=== PATIENT | female | born 1995 | race Caucasian/White ===

== ENCOUNTER 2019-12-05 01:29 | Emergency (ER) | payer MEDICAID ==
[2019-12-05 01:52] LABS: GLUCOSE, URINE (UA) 250 mg/dL (NEGATIVE)
[2019-12-05 01:54] LABS: CLARITY,URINE CLEAR (CLEAR)
[2019-12-05 01:55] LABS: KETONES,URINE (UA) TRACE mg/dL (NEGATIVE)
[2019-12-05 01:56] LABS: BILIRUBIN,URINE NEGATIVE (NEGATIVE); HCG UR QUAL NEGATIVE
--- NOTE | 2019-12-05 01:58 | ED Physician Documentation ---
History of Present Illness - Stated complaint Stated Complaint: FEM - Chief complaint Chief Complaint: Abd Pain - History obtained from History obtained from: Patient (The patient is a 24-year-old female who presents with a one-month history of worsening dysuria tonight she reports the pain was unbearable after she had been taking Azo for the last week and she is having worsening bladder spasms and now feel like she is getting a kidney infection she denies fevers she denies being denies any pelvic pain or vaginal bleeding. She reports she has a history of seizures and fibromyalgia and endometriosis and diabetes.) Review of Systems Constitutional: reports: Reviewed and negative Eyes: reports: Reviewed and negative Ears: reports: Reviewed and negative Nose: reports: Reviewed and negative Throat: reports: Reviewed and negative Cardiac: reports: Reviewed and negative Respiratory: reports: Reviewed and negative GI: reports: Reviewed and negative : reports: Dysuria Skin: reports: Reviewed and negative Musculoskeletal: reports: Reviewed and negative Neurologic: reports: Reviewed and negative Psychiatric: reports: Reviewed and negative Endocrine: reports: Reviewed and negative Immunocompromised: reports: Reviewed and negative PD PAST MEDICAL HISTORY - Present Medications Home Medications: Ambulatory Orders Medication Instructions Recorded Confirmed Cephalexin [Keflex] 500 mg PO BID #10 capsule 12/05/19 - Allergies Allergies/Adverse Reactions: Allergies Allergy/AdvReac Type Severity Reaction Status Date / Time ciprofloxacin [From Cipro] Allergy Rash Verified 12/05/19 02:01 duloxetine [From Cymbalta] Allergy Unknown Verified 12/05/19 02:02 Penicillins Allergy Anaphylaxis Verified 12/05/19 02:01 PD ED PE NORMAL - Vitals Vital signs reviewed: Yes - General General: Alert and oriented X 3, No acute distress, Well developed/nourished, Other (Tearful upon entering the exam room) - HEENT HEENT: PERRL, Moist mucous membranes - Neck Neck: Supple, no meningeal sign - Cardiac Cardiac: RRR, No murmur - Respiratory Respiratory: No respiratory distress, Clear bilaterally - Abdomen Abdomen: Normal bowel sounds, Soft, Non tender, Non distended, No organomegaly, Other (Suprapubic tenderness palpation) - Back Back: No spinal TTP, Other (Mild bilateral CVA tenderness palpation) - Derm Derm: Warm and dry - Extremities Extremities: No deformity, No tenderness to palpate, Normal ROM s pain, No edema, No calf tenderness / cord - Neuro Neuro: Alert and oriented X 3, code clerk 2-12 intact, No motor deficit, No sensory deficit, Normal speech - Psych Psych: Normal mood, Normal affect Results - Vitals Vitals: Vital Signs - 24 hr 12/05/19 12/05/19 12/05/19 01:30 03:00 03:17 Temperature 36.6 C 37.0 C Heart Rate 88 94 86 Respiratory 20 22 16 Rate Blood Pressure 128/72 133/83 H 119/85 H O2 Saturation 98 95 100 12/05/19 03:50 Temperature 36.8 C Heart Rate 78 Respiratory 18 Rate Blood Pressure 100/64 O2 Saturation 100 Oxygen O2 Source Room air - Labs Labs: Laboratory Tests 12/05/19 12/05/19 12/05/19 01:49 01:58 02:54 WBC 9.9 RBC 4.02 L Hgb 12.0 Hct 35.8 L MCV 89.1 MCH 29.9 MCHC 33.5 RDW 13.2 Plt Count 311 MPV 9.8 Neut # (Auto) 4.6 Lymph # (Auto) 4.1 H [place] # (Auto) 0.8 Eos # (Auto) 0.4 Baso # (Auto) 0.1 Absolute Nucleated RBC 0.00 Nucleated RBC % 0.0 Sodium Potassium Chloride Carbon Dioxide Anion Gap BUN Creatinine Estimated GFR (MDRD) Glucose Calcium Total Bilirubin AST ALT Alkaline Phosphatase Total Protein Albumin Globulin Albumin/Globulin Ratio Lipase Urine Color ORANGE Urine Clarity CLEAR Urine pH 5.0 Ur Specific [place] 1.015 Urine Protein Urine Glucose (UA) 250 H Urine Ketones TRACE Urine Occult Blood Urine Nitrite Urine Bilirubin NEGATIVE Urine Urobilinogen Ur Leukocyte Esterase Urine RBC None Seen Urine WBC 6-10 H Ur Squamous Epith Cells RARE Squamous Urine Bacteria Rare Ur Microscopic Review NOT INDICATED Urine Culture Comments INDICATED Urine HCG, Qual NEGATIVE 12/05/19 02:54 WBC RBC Hgb Hct MCV MCH MCHC RDW Plt Count MPV Neut # (Auto) Lymph # (Auto) [place] # (Auto) Eos # (Auto) Baso # (Auto) Absolute Nucleated RBC Nucleated RBC % Sodium 137 Potassium 3.6 Chloride 105 Carbon Dioxide 22 Anion Gap 10.0 BUN 11 Creatinine 0.6 Estimated GFR (MDRD) 121 Glucose 89 Calcium 8.5 Total Bilirubin 0.5 AST 16 ALT 14 Alkaline Phosphatase 55 Total Protein 6.6 L Albumin 3.8 Globulin 2.8 Albumin/Globulin Ratio 1.4 Lipase 24 Urine Color Urine Clarity Urine pH Ur Specific [place] Urine Protein Urine Glucose (UA) Urine Ketones Urine Occult Blood Urine Nitrite Urine Bilirubin Urine Urobilinogen Ur Leukocyte Esterase Urine RBC Urine WBC Ur Squamous Epith Cells Urine Bacteria Ur Microscopic Review Urine Culture Comments Urine HCG, Qual PD MEDICAL DECISION MAKING - ED course Complexity details: reviewed results, re-evaluated patient, considered differential (Cystitis also on the differential would be pyelonephritis. Patient reports she is allergic to penicillins as well as Levaquin said a lengthy discussion with this patient is about all the benefits, alternatives and risks of being treated with antibiotics the alternative option is to not use any antibiotics as she reports she is allergic to nearly every antibiotic I explained to her the possibility of having an adverse reaction to antibiotics is always possible there is always a small percentage of adverse reactions to taking any antibiotic after this lengthy discussion the patient ultimately decided and agreed to be treated with IV Rocephin.She accepts all adverse effects of taking Rocephin to include anaphylaxis.), d/w patient Departure - Departure Disposition: 01 Home, Self Care Clinical Impression: Cystitis Condition: Stable Instructions: ED UTI Cystitis Female Follow-Up: your, doctor [Other] [facility] [Provider Group] Prescriptions: Cephalexin [Keflex] 500 mg PO BID #10 capsule
[2019-12-05 02:02] LABS: BACTERIA,URINE Rare /HPF (None Seen); RBC,URINE None Seen /HPF (0-5); SQUAMOUS EPITHELIAL CELL,UR RARE Squamous (<= Few)
[2019-12-05 02:02] LABS: ICTOTEST,URINE NEGATIVE
[2019-12-05] MEDS ORDERED: SODIUM CHLORIDE 0.9% 1,000 ML IV ONE (02:31)
[2019-12-05] MEDS ORDERED: MORPHINE 2 MG/ML CARPUJECT IVP STA (02:31)
[2019-12-05] MEDS ORDERED: ONDANSETRON 4 MG/2 ML VIAL IVP STA (02:31)
[2019-12-05] MEDS ORDERED: cefTRIAXone 1 GM in SODIUM CHLORIDE 0.9% MINIBAG 100 ML IV STA (02:33)
[2019-12-05] MEDS ORDERED: diphenhydrAMINE INJ 50 MG/ML VIAL IVP STA (02:48)
[2019-12-05 03:01] LABS: BASOPHILS # (AUTO) 0.1 10^3/uL (0.0-0.1); BASOPHILS % (AUTO) 0.7 %; EOSINOPHILS # (AUTO) 0.4 10^3/uL (0.0-0.7); EOSINOPHILS % (AUTO) 3.5 %; LYMPHOCYTES # (AUTO) 4.1 10^3/uL (1.5-3.5); LYMPHOCYTES % (AUTO) 41.2 %; MEAN CORPUSCULAR HEMOGLOBIN 29.9 pg (27.0-31.0); MEAN CORPUSCULAR HGB CONC 33.5 g/dL (32.0-36.0); MEAN CORPUSCULAR VOLUME 89.1 fL (81.0-99.0); MEAN PLATELET VOLUME 9.8 fL (7.9-10.8); MONOCYTES # (AUTO) 0.8 10^3/uL (0.0-1.0); MONOCYTES % (AUTO) 7.6 %; NEUTROPHILS # (AUTO) 4.6 10^3/uL (1.5-6.6); NEUTROPHILS % (AUTO) 46.7 %; PLT - PLATELET COUNT 311 10^3/uL (130-450); RED BLOOD COUNT 4.02 10^6/uL (4.20-5.40); RED CELL DISTRIBUTION WIDTH 13.2 % (12.0-15.0); WHITE BLOOD COUNT 9.9 x10^3/uL (4.8-10.8)
[2019-12-05 03:17] LABS: ALBUMIN 3.8 g/dL (3.2-5.5); ALBUMIN/GLOBULIN RATIO 1.4 (1.0-2.2); BILIRUBIN,TOTAL 0.5 mg/dL (0.2-1.0); CALCIUM 8.5 mg/dL (8.5-10.3); CREATININE 0.6 mg/dL (0.4-1.0); TOTAL PROTEIN 6.6 g/dL (6.7-8.2)
[2019-12-05 04:15] VITALS: BP 103/55
== END 2019-12-05 04:20 | disposition home or self-care (01) ==
LOC: ED 01:29
DX: N30.90 Cystitis, unspecified without hematuria (principal); E11.9 Type 2 diabetes mellitus without complications; Z88.0 Allergy status to penicillin; Z88.1 Allergy status to other antibiotic agents
CPT/HCPCS: 36415; 80053; 81003; 81025; 83690; 85025; 87086; 96365; 96375; 99284; J1200; 81001

== ENCOUNTER 2021-09-29 02:14 | Outpatient (CLI) | payer MEDICAID | END 2021-09-29 02:15 | disposition short-term general hospital (02) | LOC: EMS 02:14 | DX: S69.91XA Unspecified injury of right wrist, hand and finger(s), initial encounter (principal); R10.31 Right lower quadrant pain; S09.93XA Unspecified injury of face, initial encounter; Y04.2XXA Assault by strike against or bumped into by another person, initial encounter; Y92.414 Local residential or business street as the place of occurrence of the external cause | CPT/HCPCS: A0425; A0429; A0999 ==

== ENCOUNTER 2022-01-31 15:00 | Emergency (ER) | payer MEDICAID ==
[2022-01-31] MEDS ORDERED: HALOPERIDOL 5 MG/ML VIAL IVP STA (15:22)
--- NOTE | 2022-01-31 15:24 | ED Physician Documentation ---
History of Present Illness - Stated complaint Stated Complaint: HEADACHE - Chief complaint Chief Complaint: General - History obtained from History obtained from: Patient - Additonal information Additional information: 26-year-old woman presents for headache. Per the nurse in triage she was alert and oriented and acting normally, however on my examination history is limited because she is either having a panic attack or acutely altered. Per the nurse she was having a headache for a week and also stomach pain, vomiting and diarrhea. She was discoordinated and able to walk but unsteadily. For me she is hyperventilating and will not make eye to eye contact, she will answer questions albeit very slowly. 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: Ovarian cysts : Kidney stones, Other Psych: Depression, Anxiety - Past Surgical History Past Surgical History: Yes /REGULATOR PIN INSERTER: Other - Present Medications Home Medications: Ambulatory Orders Medication Instructions Recorded Confirmed Sertraline HCl 200 mg PO DAILY 01/31/22 01/31/22 traZODone [Desyrel] 25 mg PO HS PRN 01/31/22 01/31/22 - Allergies Allergies/Adverse Reactions: Allergies Allergy/AdvReac Type Severity Reaction Status Date / Time ciprofloxacin [From Cipro] Allergy Rash Verified 01/31/22 15:03 duloxetine [From Cymbalta] Allergy Unknown Verified 01/31/22 15:03 Penicillins Allergy Anaphylaxis Verified 01/31/22 15:03 - Social History Does the pt smoke?: Yes Smoking Status: Current every day smoker Does the pt drink ETOH?: Yes Does the pt have substance abuse?: No - Immunizations Immunizations are current?: Yes - POLST Patient has POLST: No PD ED PE NORMAL - Vitals Vital signs reviewed: Yes - General General: Other (She is alert and oriented to person and place but not the date. She knows it is January though. She has poor eye contact and is hyperventilating.) - HEENT HEENT: PERRL, EOMI - Neck Neck: Supple, no meningeal sign, No bony TTP - Cardiac Cardiac: RRR, No murmur - Respiratory Respiratory: No respiratory distress, Clear bilaterally - Abdomen Abdomen: Non tender - Back Back: No CVA TTP, No spinal TTP - Derm Derm: Normal color, Warm and dry - Extremities Extremities: No edema, No calf tenderness / cord - Neuro Neuro: No motor deficit, No sensory deficit, Other (She is following commands so I am able to state ascertain that she has no nystagmus, normal [id number] testing, normal cranial nerve function save I did not check cranial nerve I. Slow speech.) Eye Opening: Spontaneous Motor: Obeys Commands Results - Vitals Vitals: Vital Signs - 24 hr 01/31/22 01/31/22 01/31/22 15:03 15:39 16:26 Temperature 36.6 C Heart Rate 90 77 68 Respiratory 18 36 H 25 H Rate Blood Pressure 150/100 H 125/65 126/75 O2 Saturation 100 98 98 Oxygen O2 Source Room air - Labs Labs: Laboratory Tests 01/31/22 01/31/22 01/31/22 15:31 15:31 15:31 WBC 10.5 RBC 4.26 Hgb 12.9 Hct 37.5 MCV 88.0 MCH 30.3 MCHC 34.4 RDW 12.4 Plt Count 301 MPV 9.3 Neut # (Auto) 6.7 H Lymph # (Auto) 2.6 [place] # (Auto) 0.9 Eos # (Auto) 0.3 Baso # (Auto) 0.1 Absolute Nucleated RBC 0.00 Nucleated RBC % 0.0 PT 11.6 INR 1.0 VBG pH VBG pCO2 VBG pO2 VBG HCO3 VBG Total CO2 VBG O2 Saturation VBG Base Excess Sodium 137 Potassium 4.4 Chloride 101 Carbon Dioxide 26 Anion Gap 10.0 BUN 14 Creatinine 0.8 Estimated GFR (MDRD) 85 L Glucose 94 Calcium 9.2 Magnesium 2.0 Total Bilirubin 0.5 AST 19 ALT 15 Alkaline Phosphatase 63 Total Protein 7.5 Albumin 4.0 Globulin 3.5 Albumin/Globulin Ratio 1.1 TSH Salicylates < 6.0 Acetaminophen < 10 L Ethyl Alcohol < 5.0 01/31/22 01/31/22 15:31 15:31 WBC RBC Hgb Hct MCV MCH MCHC RDW Plt Count MPV Neut # (Auto) Lymph # (Auto) [place] # (Auto) Eos # (Auto) Baso # (Auto) Absolute Nucleated RBC Nucleated RBC % PT INR VBG pH 7.416 H VBG pCO2 40.3 L VBG pO2 27.4 VBG HCO3 25.3 VBG Total CO2 26.6 VBG O2 Saturation 55.7 L VBG Base Excess 0.8 Sodium Potassium Chloride Carbon Dioxide Anion Gap BUN Creatinine Estimated GFR (MDRD) Glucose Calcium Magnesium Total Bilirubin AST ALT Alkaline Phosphatase Total Protein Albumin Globulin Albumin/Globulin Ratio TSH 0.64 Salicylates Acetaminophen Ethyl Alcohol PD MEDICAL DECISION MAKING - ED course ED course: 26-year-old woman presents with complaints of headache, stomach pain, vomiting and diarrhea and although reportedly gave a good history to the nurse on my examination she is altered most consistent with a panic attack. Work-up was done with basically normal blood work, and a head CT that was negative. She was administered some Haldol for combination of presumed migraine and panic attack and on reexamination at approximately 4:35 PM she was much better and much more coherent. I was able to obtain a more thorough history. Starting about a week ago she developed a very dry nose. She had multiple nosebleeds. She was congested and then more recently developed vomiting and diarrhea but subsequently took Imodium and then she was constipated so could not take anymore Imodium. She has taken home COVID test and they were negative. She was feeling much better at that point and a urinalysis had not been obtained. She did not want to wait to provide a urinalysis and promises no chance of as she is homosexual. Departure - Departure Disposition: 01 Home, Self Care Clinical Impression: Abdominal pain, Nausea Headache Qualifiers: Headache type: unspecified Headache chronicity pattern: acute headache Intractability: not intractable Qualified Code(s): R51.9 - Headache, unspecified Condition: Good Record reviewed to determine appropriate education?: Yes Instructions: ED Cephalgia Unspecified Comments: We did extensive blood testing and a CT of the head today that were negative. Please return for new or worsening symptoms. Follow-up with your primary care physician, next available appointment. Forms: Activity restrictions
[2022-01-31 15:42] LABS: VBG BASE EXCESS 0.8 mmol/L (-2 - +2); VBG HCO3 25.3 mmol/L (23-28); VBG OXYGEN SATURATION 55.7 % (60-80); VBG PCO2 40.3 mmHg (41-51); VBG PH 7.416 (7.31-7.41); VBG PO2 27.4 mmHg (25-47); VBG TOTAL CO2 26.6 mmol/L (24-29)
[2022-01-31 15:43] LABS: BASOPHILS # (AUTO) 0.1 10^3/uL (0.0-0.1); BASOPHILS % (AUTO) 0.9 %; EOSINOPHILS # (AUTO) 0.3 10^3/uL (0.0-0.7); EOSINOPHILS % (AUTO) 2.5 %; HCT - HEMATOCRIT 37.5 % (37.0-47.0); HGB - HEMOGLOBIN 12.9 g/dL (12.0-16.0); LYMPHOCYTES # (AUTO) 2.6 10^3/uL (1.5-3.5); LYMPHOCYTES % (AUTO) 24.7 %; MEAN CORPUSCULAR HEMOGLOBIN 30.3 pg (27.0-31.0); MEAN CORPUSCULAR HGB CONC 34.4 g/dL (32.0-36.0); MEAN PLATELET VOLUME 9.3 fL (7.9-10.8); MONOCYTES # (AUTO) 0.9 10^3/uL (0.0-1.0); MONOCYTES % (AUTO) 8.3 %; NEUTROPHILS # (AUTO) 6.7 10^3/uL (1.5-6.6); NEUTROPHILS % (AUTO) 63.4 %; PLT - PLATELET COUNT 301 10^3/uL (130-450); RED BLOOD COUNT 4.26 10^6/uL (4.20-5.40); RED CELL DISTRIBUTION WIDTH 12.4 % (12.0-15.0); WHITE BLOOD COUNT 10.5 x10^3/uL (4.8-10.8)
[2022-01-31 15:49] LABS: PT - PROTHROMBIN TIME 11.6 secs (9.9-12.6)
[2022-01-31 16:19] LABS: ACETAMINOPHEN < 10 ug/mL (10-30); ALBUMIN/GLOBULIN RATIO 1.1 (1.0-2.2); ALKALINE PHOSPHATASE 63 IU/L (42-121); ALT ALANINE AMINOTRANSFERASE 15 IU/L (10-60); AST ASPARTATE AMINOTRANSFERASE 19 IU/L (10-42); BILIRUBIN,TOTAL 0.5 mg/dL (0.2-1.0); BUN - BLOOD UREA NITROGEN 14 mg/dL (6-20); CALCIUM 9.2 mg/dL (8.5-10.3); CARBON DIOXIDE - CO2 26 mmol/L (21-32); CHLORIDE 101 mmol/L (101-111); CREATININE 0.8 mg/dL (0.4-1.0); ETOH - ETHANOL < 5.0 mg/dL; GFR - MDRD 85 (>89); GLUCOSE 94 mg/dL (70-100); POTASSIUM 4.4 mmol/L (3.5-5.0); SALICYLATE < 6.0 mg/dL; SODIUM 137 mmol/L (135-145); TOTAL PROTEIN 7.5 g/dL (6.7-8.2)
--- NOTE | 2022-01-31 16:32 | CT Report ---
PROCEDURE: HEAD WO INDICATIONS: headache TECHNIQUE: Noncontrast 4.5 mm thick angled axial sections acquired from the foramen magnum to the vertex. For r adiation dose reduction, the following was used: automated exposure control, adjustment of mA and/or kV according to patient size. COMPARISON: None. FINDINGS: Image quality: Excellent. CSF spaces: Basal cisterns are patent. No extra-axial fluid collections. Ventricles are normal in size and shape. Brain: No midline shift. No intracranial masses or hemorrhage. Dior-white matter interface is norm al. Skull and face: Calvarium and visualized facial bones are intact, without suspicious lesions. Sinuses: Visualized sinuses and mastoids are clear. IMPRESSION: No acute intracranial disease process. Reviewed by: Lucero Fuentes MD, PhD on 01/31/2022 4:30 PM PDT Approved by: Lucero Fuentes MD, PhD on 01/31/2022 4:30 PM PDT Station ID: [id number]
[2022-01-31 17:07] VITALS: BP 128/76
== END 2022-01-31 17:09 | disposition home or self-care (01) ==
LOC: ED 15:00
DX: R10.9 Unspecified abdominal pain (principal); R11.0 Nausea; R51.9 Headache, unspecified; F17.200 Nicotine dependence, unspecified, uncomplicated
CPT/HCPCS: 36415; 80053; 80307; 80320; 80329; 82803; 83735; 84443; 85025; 85610; 96374; 99283

== ENCOUNTER 2022-05-21 15:53 | Outpatient (CLI) | payer OTHER, MEDICAID | END 2022-05-21 15:54 | disposition critical access hospital (66) | LOC: EMS 15:53 | DX: T63.461A Toxic effect of venom of wasps, accidental (unintentional), initial encounter (principal); R06.00 Dyspnea, unspecified; R07.89 Other chest pain; L50.9 Urticaria, unspecified; R49.0 Dysphonia; Y99.0 Civilian activity done for income or pay | CPT/HCPCS: A0425; A0427 ==

== ENCOUNTER 2022-05-21 16:25 | Emergency (ER) | payer OTHER, MEDICAID ==
--- OUTSIDE RECORDS SUMMARY | 2022-05-21 16:32 | EXTERNAL MEDICAL SUMMARY RPT | Continuity of Care Document ---
:1995 Author Organization [facility] Address [address] [place] [address] Phone Care Team Providers Name Role Phone Unavailable Unavailable Unavailable Ld Coto,Manager Retirement, Stevan Unavailable Unavailable Kourtney Plant Breeder Enp, Anel Unavailable Unavailable Allergies No information. Encounters No information. Functional Status No information. Immunizations No information. Medications date description facility [id number]+0000 diclofenac sodium All 48605279907285+0000 diclofenac sodium All 70681099115228+0000 cholecalciferol (vitamin d3) All 40072392237730+0000 cholecalciferol (vitamin d3) All 64524846545392+0000 cholecalciferol (vitamin d3) All 11174635632424+0000 cholecalciferol (vitamin d3) All 10067642361060+0000 cholecalciferol (vitamin d3) All 60471937491217+0000 cholecalciferol (vitamin d3) All 18597308609074+0000 venlafaxine All 93074486069675+0000 venlafaxine All 03155807712142+0000 venlafaxine All 48644956927740+0000 venlafaxine All 63894365501597+0000 venlafaxine All 31079679266410+0000 venlafaxine All 09986384220734+0000 diclofenac sodium All 77876138315128+0000 diclofenac sodium All 36763194629121+0000 albuterol sulfate All 47461698089205+0000 albuterol sulfate All 95925949331618+0000 albuterol sulfate All 40244732763187+0000 fluticasone propionate All 27701370285676+0000 fluticasone propionate All 24387977672877+0000 fluticasone propionate All 83650426239687+0000 albuterol sulfate All 12102445052205+0000 albuterol sulfate All 79609366645614+0000 albuterol sulfate All 91358119603883+0000 venlafaxine All 88668385381370+0000 venlafaxine All 87672384544771+0000 venlafaxine All 17776721489523+0000 diclofenac sodium All 73952863639200+0000 diclofenac sodium All 50399513477106+0000 albuterol sulfate All 75559242751388+0000 albuterol sulfate All 16202159916430+0000 albuterol sulfate All 61993235228156+0000 fluticasone propionate All 64790839532260+0000 fluticasone propionate All 12496220108472+0000 fluticasone propionate All 12465879364961+0000 cholecalciferol (vitamin d3) All 63978023885366+0000 cholecalciferol (vitamin d3) All 52516176249659+0000 cholecalciferol (vitamin d3) All 04075847546347+0000 venlafaxine All 34703844090326+0000 venlafaxine All 28715725038220+0000 venlafaxine All 15250196782313+0000 albuterol sulfate All 83249535908246+0000 albuterol sulfate All 14478229009759+0000 albuterol sulfate All 69239399431405+0000 cholecalciferol (vitamin d3) All 73824749344283+0000 cholecalciferol (vitamin d3) All 75237055747525+0000 cholecalciferol (vitamin d3) All 58646388924543+0000 diclofenac sodium All 94095366395759+0000 diclofenac sodium All 80305239379194+0000 fluticasone propionate All 55886427775700+0000 fluticasone propionate All 23490860821587+0000 fluticasone propionate All 93902696999487+0000 fluticasone propionate All 46689601682621+0000 fluticasone propionate All 25890134813537+0000 fluticasone propionate All Problems No information. Procedures date description facility [id number]+0000 Visit Code Hold All 15163919112968+0000 Visit Code Hold All 33475990266148+0000 XR FOOT 2 VIEWS All Results/Labs No information. Social History date description facility [id number]+0000 Unknown if ever smoked All 03995127051530+0000 Unknown if ever smoked All 66098347807470+0000 Unknown if ever smoked All Vital Signs date measurement value units 02353481646349+0000 BMI BMI 36.35 kg/m2 11362921174582+0000 BP_diastolic BP_diastolic 71 mmHg 26840388512988+0000 BP_systolic BP_systolic 133 mmHg +0000 heart_rate heart_rate 74 /min +0000 height_metric height_metric 172.72 cm +0000 height_standard height_standard 68 in +0000 respiration_rate respiration_rate 16 /min +0000 temperature_metric temperature_metric 37.17 C +0000 temperature_standard temperature_standard 9 8.9 F +0000 weight_metric weight_metric 108.05 kg +0000 weight_standard weight_standard 238.2 lb
--- NOTE | 2022-05-21 16:35 | ED Physician Documentation ---
History of Present Illness - Stated complaint Stated Complaint: ALLERGIC REACTION - History obtained from History obtained from: Patient - Additonal information Additional information: 26-year-old woman with no history of bee or wasp anaphylaxis Works for a [employer]. She was on duty today getting rid of a wasp ground nest and was stung. She developed a body wide rash and throat swelling. Some chest heaviness and nausea. She was seen in the urgent care and given IM epinephrine and Benadryl. Subsequently was given Solu-Medrol in route by EMS and feeling better now. 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: Ovarian cysts : Kidney stones, Other Psych: Depression, Anxiety - Past Surgical History Past Surgical History: Yes /NATIONAL COVERAGE SPECIALIST: Other - Present Medications Home Medications: Ambulatory Orders Medication Instructions Recorded Confirmed Sertraline HCl 200 mg PO DAILY 01/31/22 01/31/22 traZODone [Desyrel] 25 mg PO HS PRN 01/31/22 01/31/22 Cyclobenzaprine [Flexeril] 10 mg PO TID PRN #12 tablet 03/11/22 Ibuprofen [Motrin] 600 mg PO Q6H PRN #30 tab 03/11/22 Lidocaine Patch 5% [Lidoderm Patch] 1 patch TOP DAILY PRN #10 patch 03/11/22 EPINEPHrine [Epinephrine] 0.3 mg IJ ONCE PRN #2 each 05/21/22 - Allergies Allergies/Adverse Reactions: Allergies Allergy/AdvReac Type Severity Reaction Status Date / Time ciprofloxacin [From Cipro] Allergy Rash Verified 05/21/22 16:40 duloxetine [From Cymbalta] Allergy Unknown Verified 05/21/22 16:40 Iodinated Contrast Media Allergy Respiratory Verified 05/21/22 16:40 Penicillins Allergy Anaphylaxis Verified 05/21/22 16:40 - Social History Does the pt smoke?: Yes Smoking Status: Current every day smoker Does the pt drink ETOH?: Yes Does the pt have substance abuse?: No - Immunizations Immunizations are current?: Yes - POLST Patient has POLST: No PD ED PE NORMAL - Vitals Vital signs reviewed: Yes - General General: Alert and oriented X 3, No acute distress - HEENT HEENT: Pharynx benign - Respiratory Respiratory: No respiratory distress, Clear bilaterally - Abdomen Abdomen: Non tender - Derm Derm: No rash - Neuro Neuro: Alert and oriented X 3, Normal speech Results - Vitals Vitals: Vital Signs - 24 hr 05/21/22 05/21/22 05/21/22 16:30 16:51 17:04 Temperature 36.8 C Heart Rate 84 106 H 91 Respiratory 18 17 25 H Rate Blood Pressure 153/86 H 135/78 H O2 Saturation 98 99 100 05/21/22 05/21/22 17:30 18:55 Temperature Heart Rate 74 82 Respiratory 20 20 Rate Blood Pressure 124/69 117/73 O2 Saturation 100 100 Oxygen O2 Source Room air PD MEDICAL DECISION MAKING - ED course ED course: 26-year-old woman with resolved anaphylaxis symptoms after wasp stings. She was observed for 3 hours without recurrence of symptoms. Counseled on the use of EpiPen and hymenoptera avoidance. L&I form [id number] completed and filed. The patient Was counseled as to the diagnosis and need for follow-up. I counseled the patient with regard to signs and symptoms that would necessitate an urgent reevaluation in the emergency department. They understand they are welcome to return at any time if worse or if not improving as expected. This document was made in part using voice recognition software. While efforts are made to proofread this documents, sound alike and grammatical errors may occur. Departure - Departure Disposition: 01 Home, Self Care Clinical Impression: Anaphylaxis Qualifiers: Encounter type: initial encounter Qualified Code(s): T78.2XXA - Anaphylactic shock, unspecified, initial encounter Condition: Good Record reviewed to determine appropriate education?: Yes Instructions: EpiPen Auto Injector Dc, ED Anaphylaxis General Prescriptions: EPINEPHrine [Epinephrine] 0.3 mg IJ ONCE PRN #2 each PRN Reason: Allergy Symptoms Comments: Call your doctor to arrange a follow-up appointment, make the next available appointment. In the interim, return anytime if worse or if new symptoms develop.
[2022-05-21 19:00] VITALS: BP 117/73
== END 2022-05-21 19:06 | disposition home or self-care (01) ==
LOC: EDUNIT# → ED 16:25
DX: T63.444A Toxic effect of venom of bees, undetermined, initial encounter (principal); E11.9 Type 2 diabetes mellitus without complications; F17.200 Nicotine dependence, unspecified, uncomplicated
CPT/HCPCS: 99282; 99284

== ENCOUNTER 2022-05-22 16:49 | Outpatient (CLI) | payer OTHER, MEDICAID | END 2022-05-22 16:50 | disposition critical access hospital (66) | LOC: EMS 16:49 | DX: T63.461A Toxic effect of venom of wasps, accidental (unintentional), initial encounter (principal); R06.02 Shortness of breath; R07.9 Chest pain, unspecified; R07.0 Pain in throat; R13.10 Dysphagia, unspecified; R11.0 Nausea; L50.9 Urticaria, unspecified; R06.2 Wheezing; Y99.0 Civilian activity done for income or pay | CPT/HCPCS: A0425; A0427 ==

== ENCOUNTER 2022-05-22 17:18 | Emergency (ER) | payer OTHER, MEDICAID ==
--- OUTSIDE RECORDS SUMMARY | 2022-05-22 17:24 | EXTERNAL MEDICAL SUMMARY RPT | Continuity of Care Document ---
:1995 Author Organization [facility] Address [address] [place] [address] Phone Care Team Providers Name Role Phone Unavailable Unavailable Unavailable Isabelle Gibson, Stevan Unavailable Unavailable Kourtney Coto Enp, Anel Unavailable Unavailable Aurea Turner, Stephen Unavailable Unavailable Allergies No information. Encounters No information. Functional Status No information. Immunizations No information. Medications date description facility [id number]+0000 diclofenac sodium All [id number]+0000 diclofenac sodium All [id number]+0000 diclofenac sodium [facility] ana luisa [phone]+0000 DIPHENHYDRAMINE HCL [facility] ana luisa [id number]+0000 cholecalciferol (vitamin d3) All 89801973414912+0000 cholecalciferol (vitamin d3) All 20755578162461+0000 cholecalciferol (vitamin d3) All 21118687930858+0000 cholecalciferol (vitamin d3) [facility] ana luisa [id number]+0000 cholecalciferol (vitamin d3) All 14089533584101+0000 cholecalciferol (vitamin d3) All 10389140187981+0000 cholecalciferol (vitamin d3) All 98714961984187+0000 cholecalciferol (vitamin d3) [facility] ana luisa [id number]+0000 venlafaxine All [id number]+0000 venlafaxine All [id number]+0000 venlafaxine All [id number]+0000 venlafaxine [facility] ana luisa [phone]+0000 venlafaxine All [id number]+0000 venlafaxine All [id number]+0000 venlafaxine All [id number]+0000 venlafaxine [facility] Silas orosco [id number]+0000 diclofenac sodium All [id number]+0000 diclofenac sodium All [id number]+0000 diclofenac sodium [facility] Silas orosco [id number]+0000 albuterol sulfate All [id number]+0000 albuterol sulfate All [id number]+0000 albuterol sulfate All [id number]+0000 albuterol sulfate [facility] [place] orosco [id number]+0000 fluticasone propionate All [id number]+0000 fluticasone propionate All 53297006636902+0000 fluticasone propionate All [id number]+0000 fluticasone propionate [facility] [place] o[place]o [id number]+0000 albuterol sulfate All 46249081072586+0000 albuterol sulfate All 10976258975294+0000 albuterol sulfate All 55120102212832+0000 albuterol sulfate [facility] [place] orosco [id number]+0000 venlafaxine All [id number]+0000 venlafaxine All [id number]+0000 venlafaxine All [id number]+0000 venlafaxine [facility] [place] orosco [id number]+0000 diclofenac sodium All 18906499957976+0000 diclofenac sodium All [id number]+0000 diclofenac sodium [facility] Sil[place] orosco [id number]+0000 albuterol sulfate All [id number]+0000 albuterol sulfate All 82886891985765+0000 albuterol sulfate All [id number]+0000 albuterol sulfate [facility] [place] orosc[place] [id number]+0000 fluticasone propionate All [id number]+0000 fluticasone propionate All 32062736097304+0000 fluticasone propionate All 33904053667013+0000 fluticasone propionate [facility] [place] orosco [id number]+0000 cholecalciferol (vitamin d3) All 72662240596555+0000 cholecalciferol (vitamin d3) All 85550546739666+0000 cholecalciferol (vitamin d3) All 49343978027412+0000 cholecalciferol (vitamin d3) [facility] [place] [id number]+0000 venlafaxine All [id number]+0000 venlafaxine All [id number]+0000 venlafaxine All [id number]+0000 venlafaxine [facility] [place] orosc[place] [id number]+0000 EPINEPHRINE [facility] [place] orosco [id number]+0000 albuterol sulfate All [id number]+0000 albuterol sulfate All [id number]+0000 albuterol sulfate All 14016061366167+0000 albuterol sulfate [facility] Silas orosco [id number]+0000 cholecalciferol (vitamin d3) All 60929039442846+0000 cholecalciferol (vitamin d3) All 15122777440664+0000 cholecalciferol (vitamin d3) All 64108718162047+0000 cholecalciferol (vitamin d3) [facility] [place] orosco [id number]+0000 diclofenac sodium All 88604214645367+0000 diclofenac sodium All 69941786001711+0000 diclofenac sodium [facility] Silas orosco [id number]+0000 fluticasone propionate All [id number]+0000 fluticasone propionate All [id number]+0000 fluticasone propionate All 43652322299996+0000 fluticasone propionate [facility] [place] orosco [id number]+0000 fluticasone propionate All 13589322593158+0000 fluticasone propionate All 51039851509327+0000 fluticasone propionate All [id number]+0000 fluticasone propionate [facility] [place] orosco Problems No information. Procedures date description facility [id number]+0000 Visit Code Hold All [id number]+0000 Visit Code Hold All [id number]+0000 Visit Code Hold [facility] Larry [phone]+0000 Visit Code Hold [facility] Larry [id number]+0000 XR FOOT 2 VIEWS All [id number]+0000 XR FOOT 2 VIEWS [facility] [place] Results/Labs No information. Social History date description facility +0000 Unknown if ever smoked All [id number]+0000 Unknown if ever smoked All [id number]+0000 Unknown if ever smoked All [id number]+0000 Unknown if ever smoked [facility] Vital Signs date measurement value units [id number]+0000 BMI BMI 36.35 kg/m2 49797779697632+0000 BP_diastolic BP_diastolic 71 mmHg 59142536023386+0000 BP_systolic BP_systolic 133 mmHg 92020553867146+0000 heart_rate heart_rate 74 /min 06821310646526+0000 height_metric height_metric 172.72 cm 10938450297921+0000 height_standard height_standard 68 in 63967024778844+0000 respiration_rate respiration_rate 16 /min 95763489017311+0000 temperature_metric temperature_metric 37.17 C 31037416927460+0000 temperature_standard temperature_standard 9 8.9 F 03613343119214+0000 weight_metric weight_metric 108.05 kg 62931298542632+0000 weight_standard weight_standard 238.2 lb 97868068817007+0000 temperature_metric temperature_metric 37.17 C 46660637573415+0000 temperature_standard temperature_standard 9 8.9 F 72379966859975+0000 BMI BMI 36.32 kg/m2 27337507622395+0000 BP_diastolic BP_diastolic 91 mmHg 21895466010506+0000 BP_systolic BP_systolic 148 mmHg 05299357395357+0000 heart_rate heart_rate 80 /min 38637613986376+0000 height_metric height_metric 172.72 cm 65565816714780+0000 height_standard height_standard 68 in 04614068087350+0000 respiration_rate respiration_rate 22 /min 39528786402252+0000 weight_metric weight_metric 107.95 kg 19917598019898+0000 weight_standard weight_standard 238 lb
[2022-05-22] MEDS ORDERED: DEXAMETHASONE 10 MG/ML VIAL IVP STA (17:28)
[2022-05-22] MEDS ORDERED: ALBUTEROL NEB 2.5 MG/3 ML INH STA (17:32)
[2022-05-22] MEDS ORDERED: SODIUM CHLORIDE INHALATION 3 ML NEB INH STA (17:32)
[2022-05-22] MEDS ORDERED: RACEPINEPHRINE 2.25% NEB INH STA (17:32)
[2022-05-22] MEDS ORDERED: LORazepam 2 MG/ML VIAL IVP STA ×2 (17:33→20:13)
[2022-05-22] MEDS ORDERED: SODIUM CHLORIDE 0.9% 1,000 ML IV STA (17:33)
--- NOTE | 2022-05-22 17:53 | ED Physician Documentation ---
History of Present Illness - Stated complaint Stated Complaint: ALLERGIC REACTION - Chief complaint Chief Complaint: Allergic Rx - History obtained from History obtained from: Patient, EMS - History of Present Illness Timing: Yesterday Pain level max: 0 Pain level now: 0 - Additonal information Additional information: 26-year-old female presents to the emergency department with what appears to be anaphylaxis. She was stung by a wasp yesterday. Seen and treated. Symptoms returned today. She was given IM epinephrine with EMS as well as Solu-Medrol and Benadryl. She was given 0.3 mg of IM epinephrine x2. She was given 125 mg of Solu-Medrol and 50 mg of IM Benadryl x2. Patient complains of a continued f eeling of tightness in her throat. She states she feels like her chest is tight as well. Has never had allergic reactions before yesterday to any insect sting or bite. Denies any possibility of . 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 - Present Medications Home Medications: Ambulatory Orders Medication Instructions Recorded Confirmed Sertraline HCl 200 mg PO DAILY 01/31/22 01/31/22 traZODone [Desyrel] 25 mg PO HS PRN 01/31/22 01/31/22 Cyclobenzaprine [Flexeril] 10 mg PO TID PRN #12 tablet 03/11/22 Ibuprofen [Motrin] 600 mg PO Q6H PRN #30 tab 03/11/22 Lidocaine Patch 5% [Lidoderm Patch] 1 patch TOP DAILY PRN #10 patch 03/11/22 EPINEPHrine [Epinephrine] 0.3 mg IJ ONCE PRN #2 each 05/21/22 - Allergies Allergies/Adverse Reactions: Allergies Allergy/AdvReac Type Severity Reaction Status Date / Time ciprofloxacin [From Cipro] Allergy Rash Verified 05/22/22 17:30 duloxetine [From Cymbalta] Allergy Unknown Verified 05/22/22 17:30 Iodinated Contrast Media Allergy Respiratory Verified 05/22/22 17:30 Penicillins Allergy Anaphylaxis Verified 05/22/22 17:30 - Social History Does the pt smoke?: Yes Smoking Status: Current every day smoker Does the pt drink ETOH?: Yes Does the pt have substance abuse?: No - Immunizations Immunizations are current?: Yes - POLST Patient has POLST: No PD ED PE NORMAL - Vitals Vital signs reviewed: Yes - General General: Alert and oriented X 3, Well developed/nourished, Other (Anxious appea ring) - HEENT HEENT: PERRL, Ears normal, Moist mucous membranes, Pharynx benign, Other (Normal oropharyngeal exam. Normal phonation. No trismus, wheezing or stridor) - Neck Neck: Supple, no meningeal sign - Cardiac Cardiac: RRR, Strong equal pulses - Respiratory Respiratory: Clear bilaterally, Other (Tachypneic) - Abdomen Abdomen: Soft, Non tender, Non distended - Back Back: No spinal TTP - Derm Derm: Warm and dry, Other (Mild rash to the anterior chest.) - Neuro Neuro: Alert and oriented X 3 - Psych Psych: Normal mood, Normal affect Results - Vitals Vitals: Vital Signs - 24 hr 05/22/22 05/22/22 05/22/22 17:35 17:47 17:53 Temperature 37.6 C Heart Rate 122 H 116 H 46 L Respiratory 30 H 40 H 23 Rate Blood Pressure 157/80 H 154/75 H O2 Saturation 100 100 05/22/22 05/22/22 05/22/22 18:12 19:09 19:36 Temperature Heart Rate 106 H 104 H 102 H Respiratory 22 26 H 26 H Rate Blood Pressure 133/77 H 121/70 O2 Saturation 100 100 100 05/22/22 20:35 Temperature Heart Rate 95 Respiratory 30 H Rate Blood Pressure 133/79 H O2 Saturation 98 Oxygen O2 Source Room air - Labs Labs: Laboratory Tests 05/22/22 05/22/22 05/22/22 18:19 18:19 18:19 WBC 18.0 H RBC 4.63 Hgb 13.9 Hct 40.8 MCV 88.1 MCH 30.0 MCHC 34.1 RDW 12.9 Plt Count 373 MPV 9.4 Neut # (Auto) 14.0 H Lymph # (Auto) 3.2 [place] # (Auto) 0.6 Eos # (Auto) 0.1 Baso # (Auto) 0.0 Absolute Nucleated RBC 0.00 Nucleated RBC % 0.0 Sodium 136 Potassium 2.3 L* Chloride 99 L Carbon Dioxide 24 Anion Gap 13.0 BUN 12 Creatinine 1.1 H Estimated GFR (MDRD) 59 L Glucose 157 H Calcium 9.2 Phosphorus 3.4 Magnesium 1.8 05/22/22 21:22 WBC RBC Hgb Hct MCV MCH MCHC RDW Plt Count MPV Neut # (Auto) Lymph # (Auto) [place] # (Auto) Eos # (Auto) Baso # (Auto) Absolute Nucleated RBC Nucleated RBC % Sodium 138 Potassium 3.8 Chloride 104 Carbon Dioxide 24 Anion Gap 10.0 BUN 11 Creatinine 0.9 Estimated GFR (MDRD) 75 L Glucose 145 H Calcium 8.8 Phosphorus Magnesium PD MEDICAL DECISION MAKING - ED course Complexity details: reviewed results, re-evaluated patient, considered differential, d/w patient ED course: Patient brought in by EMS for what they believed to be was anaphylaxis. The patient was given racemic epinephrine and albuterol here as well as dexamethasone. She appeared to be highly anxious, therefore Ativan was used and the patient feels better. Potassium came back at 2.3, potassium was replaced and the patient's breathing rate decreased with Ativan. On recheck it was 3.8. She states overall she is feeling better but still feels anxious and jittery. Likely from the large amount of epinephrine and potentially from the diphenhydramine given by EMS. We will continue to observe the patient until her symptoms have improved and to ensure there is no further evidence of anaphylaxis. Patient will be signed out to the [facility] emergency department physician. This document was made in part using voice recognition software. While efforts are made to proofread this document, sound alike and grammatical errors may occur. Departure - Departure Clinical Impression: Anxiety, Hypokalemia Anaphylaxis Qualifiers: Encounter type: initial encounter Qualified Code(s): T78.2XXA - Anaphylactic shock, unspecified, initial encounter Condition: Stable
[2022-05-22 18:24] LABS: BASOPHILS % (AUTO) 0.2 %; EOSINOPHILS # (AUTO) 0.1 10^3/uL (0.0-0.7); EOSINOPHILS % (AUTO) 0.3 %; HCT - HEMATOCRIT 40.8 % (37.0-47.0); HGB - HEMOGLOBIN 13.9 g/dL (12.0-16.0); LYMPHOCYTES # (AUTO) 3.2 10^3/uL (1.5-3.5); LYMPHOCYTES % (AUTO) 17.9 %; MEAN CORPUSCULAR HGB CONC 34.1 g/dL (32.0-36.0); MEAN CORPUSCULAR VOLUME 88.1 fL (81.0-99.0); MEAN PLATELET VOLUME 9.4 fL (7.9-10.8); MONOCYTES # (AUTO) 0.6 10^3/uL (0.0-1.0); MONOCYTES % (AUTO) 3.3 %; NEUTROPHILS % (AUTO) 77.8 %; PLT - PLATELET COUNT 373 10^3/uL (130-450); RED BLOOD COUNT 4.63 10^6/uL (4.20-5.40); RED CELL DISTRIBUTION WIDTH 12.9 % (12.0-15.0)
[2022-05-22 18:34] LABS: CALCIUM 9.2 mg/dL (8.5-10.3); CREATININE 1.1 mg/dL (0.4-1.0)
[2022-05-22 18:38] LABS: POTASSIUM 2.3 mmol/L (3.5-5.0)
[2022-05-22] MEDS ORDERED: POTASSIUM CHLOR 10 MEQ/100 ML 10 MEQ/100 ML BAG IV STA (18:39)
[2022-05-22] MEDS ORDERED: POTASSIUM CHLORIDE 20 MEQ TABLET PO STA (18:39)
[2022-05-22 18:53] LABS: MAGNESIUM 1.8 mg/dL (1.7-2.8); PHOSPHORUS 3.4 mg/dL (2.5-4.6)
--- NOTE | 2022-05-22 19:53 | XRAY Report ---
PROCEDURE: Chest 1 View X-Ray INDICATIONS: dyspnea TECHNIQUE: One view of the chest was acquired. COMPARISON: None. FINDINGS: Surgical changes and devices: None. Lungs and pleura: No pleural effusions or pneumothorax. Lungs are clear. Mediastinum: Mediastinal contours appear normal. Heart size is normal. Bones and chest wall: No suspicious bony lesions. Overlying soft tissues appear unremarkable. IMPRESSION: No acute cardiopulmonary abnormality. Reviewed by: Real Bush MD on 05/22/2022 7:52 PM PDT Approved by: Real Bush MD on 05/22/2022 7:52 PM PDT Station ID: [id number]
[2022-05-22] MEDS ORDERED: KETOROLAC 30 MG/ML VIAL IVP STA (20:13)
[2022-05-22 21:43] LABS: CALCIUM 8.8 mg/dL (8.5-10.3); CREATININE 0.9 mg/dL (0.4-1.0); POTASSIUM 3.8 mmol/L (3.5-5.0)
--- NOTE | 2022-05-22 22:04 | ED Physician Documentation ---
ED Addendum - Addendum Addendum: 05/23/22 05:00 Patient received a signout from outgoing physician, please see their do cumentation for further detail. Patient evaluated independently at bedside. Found to be resting comfortably and in no acute distress. Did endorse for mild sore throat and was given apple juice to drink. Additionally was provided with dose of ibuprofen as she endorsed for headache. No indications of ongoing anaphylactic reaction. Chart review demonstrates that she recent a prescription for EpiPen filled. Will discharge at this time for follow-up with primary care as needed. Clear return precautions given.
[2022-05-23] MEDS ORDERED: IBUPROFEN 800 MG TABLET PO STA (04:42)
[2022-05-23 06:55] VITALS: BP 105/55
== END 2022-05-23 07:10 | disposition home or self-care (01) ==
LOC: EDUNIT# → ED 17:18
DX: T78.40XA Allergy, unspecified, initial encounter (principal); F41.9 Anxiety disorder, unspecified; E87.6 Hypokalemia; Z20.822 Contact with and (suspected) exposure to COVID-19; F17.200 Nicotine dependence, unspecified, uncomplicated
CPT/HCPCS: 36415; 71045; 80048; 83735; 84100; 85025; 86160; 87633; 94640; 96365; 96374; 96375; 96376; 99284; 99285; A9270; J1200; J2060; J7512; J8499

== ENCOUNTER 2022-05-23 10:10 | Outpatient (CLI) | payer OTHER, MEDICAID | END 2022-05-23 10:11 | disposition critical access hospital (66) | LOC: EMS 10:10 | DX: L50.0 Allergic urticaria (principal); R06.02 Shortness of breath; R07.89 Other chest pain; Y99.0 Civilian activity done for income or pay | CPT/HCPCS: A0425; A0427 ==

== ENCOUNTER 2022-06-05 13:48 | Emergency (ER) | payer MEDICAID, OTHER ==
[2022-06-05] MEDS ORDERED: HYDROmorphone 1 MG/ML CARPUJECT IVP STA (14:25)
[2022-06-05] MEDS ORDERED: ONDANSETRON 4 MG/2 ML VIAL IVP STA (14:25)
[2022-06-05] MEDS ORDERED: SODIUM CHLORIDE 0.9% 1,000 ML IV STA (14:25)
--- NOTE | 2022-06-05 14:29 | ED Physician Documentation ---
History of Present Illness - Stated complaint Stated Complaint: ABD PX - Chief complaint Chief Complaint: Abd Pain - Additonal information Additional information: 26-year-old female presents to the emergency department for evaluation of lower abdominal pain. She is crying and writhing on the bed holding her right lower quadrant. She states that for about 10 days she has been constipated. She has used Dulcolax, magnesium citrate and MiraLAX. Despite this she has not had an adequate bowel movement and has in fact had a little bit of watery nonbloody stools. She states that this lower abdominal pain became very severe last night and early this morning. No fevers or vomiting. She does report a history of endometrioid us for which she underwent surgery number of years ago. She had previously been managed on oral contraceptives however she did desire biological children so she transitioned off of them a few years ago but has been unable to conceive Patient was seen in this emergency department on May 21 for anaphylaxis after hymenoptera envenomation. She did receive epinephrine and was subsequently seen additionally in the ensuing days for rash and allergic reaction. Patient denies a possibility of Review of Systems Constitutional: reports: Reviewed and negative Throat: reports: Reviewed and negative Cardiac: reports: Reviewed and negative Respiratory: reports: Reviewed and negative GI: reports: Abdominal Pain, Diarrhea. 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 - Present Medications Home Medications: Ambulatory Orders Medication Instructions Recorded Confirmed Sertraline HCl 200 mg PO DAILY 01/31/22 01/31/22 traZODone [Desyrel] 25 mg PO HS PRN 01/31/22 01/31/22 Cyclobenzaprine [Flexeril] 10 mg PO TID PRN #12 tablet 03/11/22 Ibuprofen [Motrin] 600 mg PO Q6H PRN #30 tab 03/11/22 Lidocaine Patch 5% [Lidoderm Patch] 1 patch TOP DAILY PRN #10 patch 03/11/22 EPINEPHrine [Epinephrine] 0.3 mg IJ ONCE PRN #2 each 05/21/22 Cetirizine [ZyrTEC] 10 mg PO BID #20 tablet 05/23/22 LORazepam [Ativan] 1 mg PO BID PRN #12 tablet 05/23/22 dexAMETHasone [Decadron] 4 mg PO DAILY #5 tablet 05/23/22 oxyCODONE [Roxicodone] 5 mg PO BID PRN #10 tablet 06/05/22 - Allergies Allergies/Adverse Reactions: Allergies Allergy/AdvReac Type Severity Reaction Status Date / Time ciprofloxacin [From Cipro] Allergy Rash Verified 06/05/22 13:58 duloxetine [From Cymbalta] Allergy Unknown Verified 06/05/22 13:58 Iodinated Contrast Media Allergy Respiratory Verified 06/05/22 13:58 Penicillins Allergy Anaphylaxis Verified 06/05/22 13:58 - Social History Does the pt smoke?: Yes Smoking Status: Current every day smoker Does the pt drink ETOH?: Yes Does the pt have substance abuse?: No - Immunizations Immunizations are current?: Yes - POLST Patient has POLST: No PD ED PE NORMAL - General General: Alert and oriented X 3. No: Well developed/nourished (Appears very uncomfortable, guarding her right lower quadrant and writhing/crying in bed) - Cardiac Cardiac: RRR, No murmur - Respiratory Respiratory: No respiratory distress, Clear bilaterally - Abdomen Abdomen: Normal bowel sounds, Soft. No: Non tender (Significant tenderness to the right lower quadrant though the entire abdomen is quite tender. 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 Eye Opening: Spontaneous Motor: Obeys Commands Verbal: Oriented GCS Score: 15 Results - Vitals Vitals: Vital Signs - 24 hr 06/05/22 06/05/22 06/05/22 13:52 16:12 18:04 Temperature 36.5 C Heart Rate 76 75 62 Respiratory 18 20 16 Rate Blood Pressure 145/86 H 141/78 H 138/74 H O2 Saturation 100 97 98 Oxygen O2 Source Room air - Labs Labs: Laboratory Tests 06/05/22 06/05/22 06/05/22 14:20 14:34 14:34 WBC 14.6 H RBC 4.41 Hgb 13.2 Hct 39.1 MCV 88.7 MCH 29.9 MCHC 33.8 RDW 13.2 Plt Count 338 MPV 9.2 Neut # (Auto) 10.8 H Lymph # (Auto) 2.4 [place] # (Auto) 1.1 H Eos # (Auto) 0.1 Baso # (Auto) 0.1 Absolute Nucleated RBC 0.00 Nucleated RBC % 0.0 Sodium 138 Potassium 3.6 Chloride 102 Carbon Dioxide 25 Anion Gap 11.0 BUN 14 Creatinine 0.8 Estimated GFR (MDRD) 85 L Glucose 102 H Calcium 8.9 Total Bilirubin 0.6 AST 20 ALT 32 Alkaline Phosphatase 57 Total Protein 7.0 Albumin 3.7 Globulin 3.3 Albumin/Globulin Ratio 1.1 Lipase 28 Urine Color DARK YELLOW Urine Clarity CLEAR Urine pH 6.5 Ur Specific [place] 1.020 Urine Protein NEGATIVE Urine Glucose (UA) NEGATIVE Urine Ketones NEGATIVE Urine Occult Blood NEGATIVE Urine Nitrite NEGATIVE Urine Bilirubin NEGATIVE Urine Urobilinogen 0.2 (NORMAL) Ur Leukocyte Esterase NEGATIVE Ur Microscopic Review NOT INDICATED Urine Culture Comments NOT INDICATED Urine HCG, Qual NEGATIVE - Rads (name of study) CT abd Radiology: Final report received (Normal study of the abdomen and pelvis) pelvic US Radiology: Other (Per staff technologist no torsion. There does appear to be resolving right ovarian cyst. Small amount of free fluid likely physiologic) PD MEDICAL DECISION MAKING - ED course Complexity details: reviewed results, re-evaluated patient, considered differential, d/w patient ED course: 26-year-old female presents emergency department for evaluation of reported constipation and no bowel movement for 10 days. However she reports that she began having pain in the lower pelvic and right lower quadrant region of her abdomen this morning. On presentation to the emergency department she is writhing in pain and tearful. Her abdominal exam was limited as the patient was quite painful. I did obtain a CBC and electrolytes. She is not and there are no signs of urinary infection. CBC showed a mild leukocytosis with white count of 14,000. Electrolytes were unremarkable. A CT of the abdomen did not show any acute findings. However the patient has persisted in pain and is uncomfortable here in the emergency department. Given the pain out of proportion for the labs as well as a negative CT I have elected to perform a pelvic ultrasound to rule out ovarian torsion. Pelvic ultrasound has reassuringly showed no findings to suggest torsion. There does appear to be resolving right ovarian cyst and a small amount of fluid likely felt to be physiologic. Given that there are no findings of ovarian torsion, bowel obstruction, perforation or acute appendicitis or Cholecystitis I discussed with patient that the likely etiology of her symptoms could be endometriosis. She is trying to reestablish with a [place] line attendant. We discussed the routine management that typically includes NSAID medication. However given the severe pain she presented with a very limited amount of oxycodone has been sent to the pharmacy Patient is discharged home in stable condition. Encourage close follow-up with her [place] line attendant. Emergent return precautions otherwise discussed Departure - Departure Disposition: Home, Self Care Clinical Impression: Right lower quadrant abdominal pain, History of endometriosis Condition: Stable Record reviewed to determine appropriate education?: Yes Prescriptions: oxyCODONE [Roxicodone] 5 mg PO BID PRN #10 tablet PRN Reason: Pain Comments: Sabrina seen today in the emergency department because you have been constipated recently but began to develop sudden severe pain in the right lower quadrant of your abdomen. Here in the emergency department your screening labs did not show any worrisome findings. CT of your abdomen also showed no findings to suggest gallbladder disease, acute appendicitis, bowel obstruction or bowel perforation. We then did do a pelvic ultrasound to evaluate for the possibility of ovarian torsion and the ultrasound did not show any findings to suggest this. You do have a history of endometrioid us. It is important that you discuss this ED visit with a [place] line attendant. Longer-term management of your symptoms may need to be accomplished with the use of oral contraceptives however I know that you desire to have a biological child so there are some alternative management techniques that can be discussed with your [place] line attendant. In general I recommend that you take 600 mg of ibuprofen with food 2-3 times a day or alternate with 500 mg of Tylenol. If you find that your symptoms or not improving, you develop fevers or have uncontrolled vomiting then please return immediately to the ER. a prescription for a limited amount of oxycodone has been sent to the [facility]
[2022-06-05 14:38] LABS: BILIRUBIN,URINE NEGATIVE (NEGATIVE); GLUCOSE, URINE (UA) NEGATIVE (NEGATIVE); KETONES,URINE (UA) NEGATIVE (NEGATIVE); LEUKOCYTE ESTERASE, URINE NEGATIVE (NEGATIVE); NITRITE,URINE NEGATIVE (NEGATIVE); OCCULT BLOOD,URINE NEGATIVE (NEGATIVE); PH,URINE 6.5 PH (5.0-7.5); PROTEIN,URINE NEGATIVE (NEGATIVE); UROBILINOGEN,URINE 0.2 (NORMAL) E.U./dL (NORMAL)
[2022-06-05 14:40] LABS: BASOPHILS # (AUTO) 0.1 10^3/uL (0.0-0.1); BASOPHILS % (AUTO) 0.3 %; EOSINOPHILS # (AUTO) 0.1 10^3/uL (0.0-0.7); HCT - HEMATOCRIT 39.1 % (37.0-47.0); HGB - HEMOGLOBIN 13.2 g/dL (12.0-16.0); LYMPHOCYTES # (AUTO) 2.4 10^3/uL (1.5-3.5); LYMPHOCYTES % (AUTO) 16.5 %; MEAN CORPUSCULAR HEMOGLOBIN 29.9 pg (27.0-31.0); MEAN CORPUSCULAR HGB CONC 33.8 g/dL (32.0-36.0); MEAN CORPUSCULAR VOLUME 88.7 fL (81.0-99.0); MEAN PLATELET VOLUME 9.2 fL (7.9-10.8); MONOCYTES # (AUTO) 1.1 10^3/uL (0.0-1.0); MONOCYTES % (AUTO) 7.5 %; NEUTROPHILS # (AUTO) 10.8 10^3/uL (1.5-6.6); NEUTROPHILS % (AUTO) 74.3 %; PLT - PLATELET COUNT 338 10^3/uL (130-450); RED BLOOD COUNT 4.41 10^6/uL (4.20-5.40); RED CELL DISTRIBUTION WIDTH 13.2 % (12.0-15.0); WHITE BLOOD COUNT 14.6 x10^3/uL (4.8-10.8)
[2022-06-05 14:41] LABS: CLARITY,URINE CLEAR (CLEAR); HCG UR QUAL NEGATIVE
[2022-06-05] MEDS ORDERED: iohexoL-300 100 ML VIAL ONE (14:45)
[2022-06-05 15:02] LABS: ALBUMIN 3.7 g/dL (3.2-5.5); ALBUMIN/GLOBULIN RATIO 1.1 (1.0-2.2); BILIRUBIN,TOTAL 0.6 mg/dL (0.2-1.0); CALCIUM 8.9 mg/dL (8.5-10.3); CREATININE 0.8 mg/dL (0.4-1.0); POTASSIUM 3.6 mmol/L (3.5-5.0)
[2022-06-05] MEDS ORDERED: fentaNYL 100 MCG/2 ML VIAL IVP STA (16:04)
--- NOTE | 2022-06-05 16:11 | CT Report ---
PROCEDURE: ABDOMEN/PELVIS WO INDICATIONS: ABD PAIN TECHNIQUE: Noncontrast 5 mm thick sections acquired from the diaphragms to the symphysis. 5 mm coronal and sagi ttal reformats were then performed. For radiation dose reduction, the following was used: automated exposure control, adjustment of mA and/or kV according to patient size. COMPARISON: None. FINDINGS: Image quality: Excellent. ABDOMEN: Lung bases: Lung bases are clear. Heart size is normal. Solid organs: Liver and spleen are normal in size. Gallbladder normal. Pancreas is normal in conto urs. No adrenal nodules. Kidneys are normal in size, without hydronephrosis or nephrolithiasis. Peritoneum and bowel: Unenhanced bowel loops demonstrate normal wall thickness and caliber. No free fluid or air. Nodes and vessels: No retroperitoneal or mesenteric adenopathy by size criteria. Aorta and inferior vena cava are normal in caliber. Miscellaneous: No ventral hernias. PELVIS: Genitourinary: Bladder wall thickness is normal. Miscellaneous: No inguinal hernias or adenopathy. Bones: No suspicious bony lesions. No vertebral body compression fractures. IMPRESSION: Normal study. Reviewed by: Jace Barger MD on 06/05/2022 4:09 PM PST Approved by: Jace Barger MD on 06/05/2022 4:09 PM PST Station ID: [id number]
[2022-06-05 18:05] VITALS: BP 138/74
--- NOTE | 2022-06-05 18:39 | Ultrasound Report ---
PROCEDURE: Pelvic w/Transvag+Doppler Comp INDICATIONS: pelvic pain, R TECHNIQUE: Real-time scanning was performed of the pelvic organs, with image documentation. Additional endovagi nal scanning was necessary due to incomplete visualization of the adnexal and endometrial structures by transabdominal scanning. Doppler interrogation was performed of the ovaries bilaterally. COMPARISON: CT abdomen/pelvis 06/05/2022. FINDINGS: No pathologic free abdominal or pelvic fluid. Uterus: Uterus is normal in size at 6.7 x 3 x 3.6 cm. The endometrium measures 6 mm in combined thi ckness. Ovaries: Right ovary measures 2.7 x 2 x 1.8 cm (5.9 mL). Left ovary measures 1.7 x 0.8 x 1 cm (0.8 m L). Normal appearing arterial and venous waveforms are confirmed to each ovary.] Other: No free pelvic fluid. IMPRESSION: No sonographic signs of ovarian torsion. No acute abnormality identified in the pelvis. Reviewed by: Hansel Figueroa MD on 06/05/2022 6:38 PM PST Approved by: Hansel Figueroa MD on 06/05/2022 6:38 PM PST Station ID: [id number]
== END 2022-06-05 18:47 | disposition home or self-care (01) ==
LOC: ED 13:48
DX: R10.31 Right lower quadrant pain (principal); Z87.42 Personal history of other diseases of the female genital tract; N83.201 Unspecified ovarian cyst, right side; E11.9 Type 2 diabetes mellitus without complications; F17.200 Nicotine dependence, unspecified, uncomplicated
CPT/HCPCS: 36415; 74176; 76830; 76856; 80053; 81003; 81025; 83690; 85025; 93975; 96361; 96374; 96375; 99284; J1170; 81001; 87086

== ENCOUNTER 2022-07-28 15:49 | Emergency (ER) | payer MEDICAID ==
[2022-07-28 15:59] VITALS: BP 119/71
[2022-07-28] MEDS ORDERED: BUFFERED LIDOCAINE 10 ML SYRINGE SUBQ STA (16:16)
--- OUTSIDE RECORDS SUMMARY | 2022-07-28 16:18 | EXTERNAL MEDICAL SUMMARY RPT | Continuity of Care Document ---
:1995 Author Organization [facility] [place] Address [address] [place] [address] Phone Care Team Providers Name Role Phone Unavailable Unavailable Unavailable Alfredo Turner, Raúl Unavailable Unavailable Aurea Turner, Stephen Unavailable Unavailable Reena Basilio Md Unavailable Unavailable Lois Pfs, Chivaun Unavailable Unavailable Lois Pfs, Chivaun Unavailable Unavailable Allergies No information. Encounters No information. Functional Status No information. Immunizations No information. Medications date description facility 2022-07-22 00:00 oseltamivir Walk-In Clinic Prim jadyn [facility] Services [facility] 2022-07-18 00:00 venlafaxine Walk-In Clinic Prim jadyn [facility] Services [facility] 2022-07-22 00:00 venlafaxine Walk-In Clinic Prim jadyn Care & Anc[facility] Services [facility] 2022-05-22 00:00 DIPHENHYDRAMINE HCL Walk-In Clinic [facility] Care & Ancillary Services [facility] 2022-05-22 00:00 DIPHENHYDRAMINE HCL Walk-In Clinic [facility] Care & Ancillary Services [facility] 2022-05-22 00:00 DIPHENHYDRAMINE HCL Walk-In Clinic [facility] Care & Ancillary Services [facility] 2022-05-22 00:00 DIPHENHYDRAMINE HCL Walk-In Clinic Cristela rudy Care & Ancillary Services [facility] 2022-05-22 00:00 DIPHENHYDRAMINE HCL Walk-In Clinic Cristela rudy Care & Ancillary Services [facility] 2022-07-22 00:00 oseltamivir Walk-In Clinic Prim jadyn Care [facility] Services [facility] 2022-05-23 00:00 METHYLPREDNISOLONE ACETATE Walk-In [facility] 2022-05-23 00:00 METHYLPREDNISOLONE ACETATE Walk-In [facility] 2022-05-23 00:00 METHYLPREDNISOLONE ACETATE Walk-In [facility] 2022-05-23 00:00 METHYLPREDNISOLONE ACETATE Walk-In Cli [facility] 2022-05-22 00:00 cholecalciferol (vitamin d3) Walk-In [facility] Primary Care & Ancillary Services [facility] 2022-05-23 00:00 cholecalciferol (vitamin d3) Walk-In [facility] Primary Care & Ancillary Services [facility] 2022-05-23 00:00 cholecalciferol (vitamin d3) Walk-In C [facility] Primary Care & Ancillary Services [facility] 2022-05-28 00:00 cholecalciferol (vitamin d3) Walk-In [facility] Primary Care & Ancillary Services [facility] 2022-06-03 00:00 cholecalciferol (vitamin d3) Walk-In [facility] Primary Care & Ancillary Services [facility] 2022-07-18 00:00 cholecalciferol (vitamin d3) Walk-In [facility] Primary Care & Ancillary Services [facility] 2022-07-22 00:00 cholecalciferol (vitamin d3) Walk-In [facility] Primary Care & Ancillary Services [facility] 2022-05-22 00:00 cholecalciferol (vitamin d3) Walk-In [facility] Primary Care & Ancillary Services [facility] 2022-05-23 00:00 cholecalciferol (vitamin d3) Walk-In [facility] Primary Care & Ancillary Services [facility] 2022-05-23 00:00 cholecalciferol (vitamin d3) Walk-In [facility] Primary Care & Ancillary Services [facility] 2022-05-28 00:00 cholecalciferol (vitamin d3) Walk-In [facility] Primary Care & Ancillary Services [facility] 2022-06-03 00:00 cholecalciferol (vitamin d3) Walk-In [facility] Primary Care & Ancillary Services [facility] 2022-07-18 00:00 cholecalciferol (vitamin d3) Walk-In [facility] Primary Care & Ancillary Services [facility] 2022-07-22 00:00 cholecalciferol (vitamin d3) Walk-In [facility] Primary Care & Ancillary Services [facility] 2022-07-18 00:00 pantoprazole Walk-In Clinic Prim jadyn Care [facility] Services [facility] 2022-07-22 00:00 pantoprazole Walk-In Clinic Prim [facility]adyn Care [facility] Services [facility] 2022-07-22 00:00 oseltamivir Walk-In Clinic Prim [facility]adyn Care [facility] 2022-07-18 00:00 venlafaxine Walk-In Clinic Prim [facility]yn [facility] 2022-07-22 00:00 venlafaxine Walk-In Clinic Prim [facility]yn [facility] 2022-05-22 00:00 venlafaxine Walk-In Clinic Prim [facility]yn [facility] 2022-05-23 00:00 venlafaxine Walk-In Clinic Prim [facility]yn [facility] 2022-05-23 00:00 venlafaxine Walk-In Clinic Prim [facility]yn [facility] 2022-05-28 00:00 venlafaxine Walk-In Clinic Prim [facility]yn [facility] 2022-06-03 00:00 venlafaxine Walk-In Clinic Prim [facility]adyn [facility] 2022-07-18 00:00 venlafaxine Walk-In Clinic Prim [facility]yn [facility] 2022-07-22 00:00 venlafaxine Walk-In Clinic Prim [facility]yn [facility] 2022-05-22 00:00 venlafaxine Walk-In Clinic Prim [facility]yn [facility] 2022-05-23 00:00 venlafaxine Walk-In Clinic Prim [facility]yn [facility] 2022-05-23 00:00 venlafaxine Walk-In Clinic Prim [facility]adyn [facility] 2022-05-28 00:00 venlafaxine Walk-In Clinic Prim [facility]yn [facility] 2022-06-03 00:00 venlafaxine Walk-In Clinic Prim [facility]yn [facility] 2022-07-18 00:00 venlafaxine Walk-In Clinic Prim [facility]yn [facility] 2022-07-22 00:00 venlafaxine Walk-In Clinic Prim [facility]yn [facility] 2022-05-22 00:00 albuterol sulfate Walk-In Clinic Prim [facility] 2022-05-23 00:00 albuterol sulfate Walk-In Clinic Prim [facility]yn [facility] 2022-05-23 00:00 albuterol sulfate Walk-In Clinic Prim [facility]yn [facility] 2022-05-28 00:00 albuterol sulfate Walk-In Clinic Prim [facility]yn [facility] 2022-06-03 00:00 albuterol sulfate Walk-In Clinic Prim [facility]yn [facility] 2022-07-18 00:00 albuterol sulfate Walk-In Clinic Prim [facility]yn [facility] 2022-07-22 00:00 albuterol sulfate Walk-In Clinic Prim [facility]yn [facility] 2022-05-22 00:00 fluticasone propionate Walk-In Clinic Primary [facility] Anc[facility] Services C [facility] 2022-05-23 00:00 fluticasone propionate Walk-In Clinic Primary [facility] Services C [facility] 2022-05-23 00:00 fluticasone propionate Walk-In Clinic Primary [facility] Ancillary Services C [facility] 2022-05-28 00:00 fluticasone propionate Walk-In Clinic Primary [facility] Anc[facility] Services C [facility] 2022-06-03 00:00 fluticasone propionate Walk-In Clinic Primary [facility] Services C [facility] 2022-07-18 00:00 fluticasone propionate Walk-In Clinic Primary [facility] Ancillary Services C [facility] 2022-07-22 00:00 fluticasone propionate Walk-In Clinic Primary [facility] Services C [facility] 2022-05-22 00:00 albuterol sulfate Walk-In Clinic Prim [facility]yn [facility] 2022-05-23 00:00 albuterol sulfate Walk-In Clinic Prim [facility]yn Care [facility] 2022-05-23 00:00 albuterol sulfate Walk-In Clinic Prim [facility]adyn [facility] 2022-05-28 00:00 albuterol sulfate Walk-In Clinic Prim [facility]yn [facility] 2022-06-03 00:00 albuterol sulfate Walk-In Clinic Prim [facility]yn [facility] 2022-07-18 00:00 albuterol sulfate Walk-In Clinic Prim j[facility]yn [facility] 2022-07-22 00:00 albuterol sulfate Walk-In Clinic Prim [facility]yn [facility] 2022-07-18 00:00 pantoprazole Walk-In Clinic Prim [facility]yn [facility] 2022-07-22 00:00 pantoprazole Walk-In Clinic Prim [facility]yn [facility] 2022-07-18 00:00 pantoprazole Walk-In Clinic Prim [facility]yn [facility] C [facility] 2022-07-22 00:00 pantoprazole Walk-In Clinic Prim [facility]yn [facility] 2022-05-22 00:00 venlafaxine Walk-In Clinic Prim [facility]yn [facility] 2022-05-23 00:00 venlafaxine Walk-In Clinic Prim jadyn Care [facility] C [facility] 2022-05-23 00:00 venlafaxine Walk-In Clinic Prim [facility]yn [facility] 2022-05-28 00:00 venlafaxine Walk-In Clinic Prim [facility]yn [facility] 2022-06-03 00:00 venlafaxine Walk-In Clinic Prim jadyn [facility] Services [facility] 2022-07-18 00:00 venlafaxine Walk-In Clinic Prim [facility]yn [facility] 2022-07-22 00:00 venlafaxine Walk-In Clinic Prim j[facility]yn [facility] 2022-07-18 00:00 venlafaxine Walk-In Clinic Prim jadyn [facility] 2022-07-22 00:00 venlafaxine Walk-In Clinic Prim [facility]yn [facility] 2022-07-18 00:00 pantoprazole Walk-In Clinic Prim [facility]yn [facility] 2022-07-22 00:00 pantoprazole Walk-In Clinic Prim [facility]yn [facility] 2022-07-22 00:00 oseltamivir Walk-In Clinic Prim [facility]yn [facility] 2022-07-18 00:00 venlafaxine Walk-In Clinic Prim [facility]yn [facility] 2022-07-22 00:00 venlafaxine Walk-In Clinic Prim [facility]yn [facility] 2022-05-22 00:00 albuterol sulfate Walk-In Clinic Prim [facility]yn [facility] 2022-05-23 00:00 albuterol sulfate Walk-In Clinic Prim [facility]yn [facility] 2022-05-23 00:00 albuterol sulfate Walk-In Clinic Prim [facility]yn [facility] 2022-05-28 00:00 albuterol sulfate Walk-In Clinic Prim [facility]yn [facility] 2022-06-03 00:00 albuterol sulfate Walk-In Clinic Prim [facility]yn [facility] C [facility] 2022-07-18 00:00 albuterol sulfate Walk-In Clinic Prim [facility] 2022-07-22 00:00 albuterol sulfate Walk-In Clinic Prim [facility]yn [facility] 2022-05-22 00:00 fluticasone propionate Walk-In [facility] 2022-05-23 00:00 fluticasone propionate Walk-In Clinic [facility] 2022-05-23 00:00 fluticasone propionate Walk-In Clinic [facility] 2022-05-28 00:00 fluticasone propionate Walk-In Clinic [facility] Services [facility] 2022-06-03 00:00 fluticasone propionate Walk-In [facility] 2022-07-18 00:00 fluticasone propionate Walk-In Clinic Primary [facility] Services [facility] 2022-07-22 00:00 fluticasone propionate Walk-In Clinic Primary [facility] 2022-05-22 00:00 cholecalciferol (vitamin d3) Walk-In [facility] Primary Care & Ancillary Services ana luisa 2022-05-23 00:00 cholecalciferol (vitamin d3) Walk-In C [facility] Primary Care & Ancillary Services ana luisa 2022-05-23 00:00 cholecalciferol (vitamin d3) Walk-In [facility] Primary Care & Ancillary Services [facility] 2022-05-28 00:00 cholecalciferol (vitamin d3) Walk-In [facility] Primary Care & Ancillary Services ana luisa 2022-06-03 00:00 cholecalciferol (vitamin d3) Walk-In [facility] Primary Care & Ancillary Services C ana luisa 2022-07-18 00:00 cholecalciferol (vitamin d3) Walk-In C [facility] Primary Care & Ancillary Services C ana luisa 2022-07-22 00:00 cholecalciferol (vitamin d3) Walk-In C [facility] Primary Care & Anc[facility] Services [facility] 2022-05-22 00:00 venlafaxine Walk-In Clinic Prim [facility]yn [facility] C [facility] 2022-05-23 00:00 venlafaxine Walk-In Clinic Prim [facility]yn Care [facility] Anc[facility] Services C [facility] 2022-05-23 00:00 venlafaxine Walk-In Clinic Prim [facility]yn Care [facility] C [facility] 2022-05-28 00:00 venlafaxine Walk-In Clinic Prim j[facility]yn [facility] 2022-06-03 00:00 venlafaxine Walk-In Clinic Prim [facility]yn [facility] 2022-07-18 00:00 venlafaxine Walk-In Clinic Prim j[facility]yn [facility] Services [facility] 2022-07-22 00:00 venlafaxine Walk-In Clinic Prim [facility]yn [facility] Services C [facility] 2022-05-22 00:00 EPINEPHRINE Walk-In Clinic Prim [facility]yn [facility] 2022-05-22 00:00 EPINEPHRINE Walk-In Clinic Prim jadyn Care [facility] Services C [facility] 2022-05-22 00:00 EPINEPHRINE Walk-In Clinic Prim [facility]yn Care [facility] C [facility] 2022-05-22 00:00 EPINEPHRINE Walk-In Clinic Prim j[facility]yn Care [facility] Anc[facility] Services C [facility] 2022-05-22 00:00 EPINEPHRINE Walk-In Clinic Prim [facility]yn Care [facility] Services C [facility] 2022-05-23 00:00 EPINEPHRINE Walk-In Clinic Prim j[facility]yn Care [facility] Services C [facility] 2022-05-23 00:00 EPINEPHRINE Walk-In Clinic Prim j[facility]yn [facility] Services C [facility] 2022-05-23 00:00 EPINEPHRINE Walk-In Clinic Prim j[facility]yn [facility] Services C [facility] 2022-05-23 00:00 EPINEPHRINE Walk-In Clinic Prim [facility]yn [facility] C [facility] 2022-05-22 00:00 albuterol sulfate Walk-In Clinic Prim jadyn Care [facility] Services [facility] 2022-05-23 00:00 albuterol sulfate Walk-In Clinic Prim jadyn Care [facility] Anc[facility] Services [facility] 2022-05-23 00:00 albuterol sulfate Walk-In Clinic Prim jadyn Care & Anc[facility] Services [facility] 2022-05-28 00:00 albuterol sulfate Walk-In Clinic Prim jadyn Care & Ancillary Services [facility] 2022-06-03 00:00 albuterol sulfate Walk-In Clinic Prim jadyn Care & Ancillary Services [facility] 2022-07-18 00:00 albuterol sulfate Walk-In Clinic Prim jadyn Care & Anc[facility] Services [facility] 2022-07-22 00:00 albuterol sulfate Walk-In Clinic Prim jadyn Care & Ancillary Services [facility] 2022-05-22 00:00 cholecalciferol (vitamin d3) Walk-In [facility] Primary Care & Ancillary Services [facility] 2022-05-23 00:00 cholecalciferol (vitamin d3) Walk-In [facility] Primary Care & Ancillary Services [facility] 2022-05-23 00:00 cholecalciferol (vitamin d3) Walk-In [facility] Primary Care & Ancillary Services [facility] 2022-05-28 00:00 cholecalciferol (vitamin d3) Walk-In [facility] Primary Care & Ancillary Services [facility] 2022-06-03 00:00 cholecalciferol (vitamin d3) Walk-In [facility] Primary Care & Ancillary Services [facility] 2022-07-18 00:00 cholecalciferol (vitamin d3) Walk-In [facility] Primary Care & Ancillary Services [facility] 2022-07-22 00:00 cholecalciferol (vitamin d3) Walk-In [facility] Primary Care & Ancillary Services [facility] 2022-05-22 00:00 fluticasone propionate Walk-In Clinic Primary Care & Ancillary Services [facility] 2022-05-23 00:00 fluticasone propionate Walk-In Clinic Primary [facility] & Ancillary Services [facility] 2022-05-23 00:00 fluticasone propionate Walk-In Clinic Primary [facility] Ancillary Services [facility] 2022-05-28 00:00 fluticasone propionate Walk[facility]In Clinic [facility] 2022-06-03 00:00 fluticasone propionate Walk-In Clinic [facility] 2022-07-18 00:00 fluticasone propionate Walk-In Clinic [facility] 2022-07-22 00:00 fluticasone propionate Walk-In Clinic [facility]isa 2022-05-22 00:00 fluticasone propionate Walk-In Clinic [facility] 2022-05-23 00:00 fluticasone propionate Walk-In Clinic [facility] 2022-05-23 00:00 fluticasone propionate Walk-In Clinic [facility] ana luisa 2022-05-28 00:00 fluticasone propionate Walk-In Clinic [facility] 2022-06-03 00:00 fluticasone propionate Walk-In Clinic [facility] 2022-07-18 00:00 fluticasone propionate Walk-In Clinic [facility] 2022-07-22 00:00 fluticasone propionate Walk-In Clinic [facility] date description facility 2022-05-22 00:00 Allergic contact dermatitis Walk-In Cl in [facility] Services [facility] 2022-05-22 00:00 Allergic contact dermatitis Walk-In [facility] in [facility] 2022-05-22 00:00 Allergic contact dermatitis Walk-In Cl in [facility] 2022-05-22 00:00 Allergic contact dermatitis Walk-In Cl in [facility] 2022-05-22 00:00 Allergic contact dermatitis Walk-In Cl in [facility] 2022-05-22 00:00 Anaphylaxis Walk-In Clinic Prim [facility]yn [facility] 2022-05-22 00:00 Anaphylaxis Walk-In Clinic Prim [facility] 2022-05-22 00:00 Anaphylaxis Walk-In Clinic Prim [facility] 2022-05-22 00:00 Anaphylaxis Walk-In [facility] Prim [facility] 2022-05-22 00:00 Anaphylaxis [facility] 2022-05-22 00:00 Other anaphylactic reaction Walk-In Cl inic Primary Care & Ancillary Services [facility] 2022-05-22 00:00 Other anaphylactic reaction Walk-In [facility] 2022-05-22 00:00 Other anaphylactic reaction Walk-In Cl in Primary [facility] & [facility]illary Services [facility] 2022-05-22 00:00 Other anaphylactic reaction Walk-In Cl in Primary [facility] & [facility] Services [facility] 2022-05-22 00:00 Other anaphylactic reaction Walk-In Cl in Primary [facility] & [facility] Services [facility] 2022-05-22 00:00 Allergy, unspecified, not Walk-In Clin ic Primary Care & elsewhere classified [facility] 2022-05-22 00:00 Allergy, unspecified, not Walk-In Clin ic Primary Care & elsewhere classified [facility] 2022-05-22 00:00 Allergy, unspecified, not Walk-In Clin ic Primary Care & elsewhere classified [facility] 2022-05-22 00:00 Allergy, unspecified, not Walk-In Clin ic Primary Care & elsewhere classified [facility] 2022-05-22 00:00 Allergy, unspecified, not Walk-In Clin ic Primary Care & elsewhere classified [facility] 2022-05-22 00:00 Allergic contact dermatitis, Walk-In C linic Primary Care & unspecified cause Ancillary Services [facility] 2022-05-22 00:00 Allergic contact dermatitis, Walk-In C linic Primary Care & unspecified cause Ancillary Services [facility] 2022-05-22 00:00 Allergic contact dermatitis, Walk-In C linic Primary Care & unspecified cause Ancillary Services [facility] 2022-05-22 00:00 Allergic contact dermatitis, Walk-In C linic Primary Care & unspecified cause Ancillary Services [facility] 2022-05-22 00:00 Allergic contact dermatitis, Walk-In C linic Primary Care & unspecified cause [facility] Services [facility] 2022-05-22 00:00 Anaphylactic shock, unspecified, Walk- In Clinic Primary Care & subsequent encounter [facility] [place] 2022-05-22 00:00 Anaphylactic shock, unspecified, Walk- In Clinic Primary Care & subsequent encounter [facility] 2022-05-22 00:00 Anaphylactic shock, unspecified, Walk- In Clinic Primary Care & subsequent encounter [facility] 2022-05-22 00:00 Anaphylactic shock, unspecified, Walk- In Clinic Primary Care & subsequent encounter [facility] [place] 2022-05-22 00:00 Anaphylactic shock, unspecified, Walk- In Clinic Primary Care & subsequent encounter [facility] 2022-05-23 00:00 Anaphylaxis Walk-In Clinic Prim [facility]adyn Care & [facility] Services [facility] 2022-05-23 00:00 Anaphylaxis Walk-In Clinic Prim [facility]yn [facility] 2022-05-23 00:00 Anaphylaxis Walk-In [facility] Prim [facility] 2022-05-23 00:00 Anaphylaxis Walk-In Clinic Prim [facility] 2022-05-23 00:00 Allergic reaction Walk-In [facility] Prim [facility] 2022-05-23 00:00 Allergic reaction Walk-In Clinic Prim [facility]adyn Care & [facility] Services [facility] 2022-05-23 00:00 Allergic reaction Walk-In Clinic Prim jaydn Care & Ancillary Services [facility] 2022-05-23 00:00 Allergic reaction Walk-In Clinic Prim [facility] 2022-05-23 00:00 Other anaphylactic reaction Walk-In Cl in [facility] 2022-05-23 00:00 Other anaphylactic reaction Walk-In Cl in [facility] 2022-05-23 00:00 Other anaphylactic reaction Walk-In Cl in [facility] Services [facility]isa 2022-05-23 00:00 Other anaphylactic reaction Walk-In Cl inic [facility] Services [facility] 2022-05-23 00:00 Anaphylactic shock, unspecified, Walk- In Clinic Primary Care & initial encounter [facility] 2022-05-23 00:00 Anaphylactic shock, unspecified, Walk- In Clinic Primary Care & initial encounter [facility] 2022-05-23 00:00 Anaphylactic shock, unspecified, Walk- In Clinic Primary Care & initial encounter [facility] 2022-05-23 00:00 Anaphylactic shock, unspecified, Walk- In Clinic Primary Care & initial encounter [facility] Services C [facility] 2022-05-23 00:00 Allergy, unspecified, initial Walk-In Clinic Primary Care & encounter [facility] Services [facility] 2022-05-23 00:00 Allergy, unspecified, initial Walk-In Clinic Primary Care & encounter Ancillary Services C [facility] 2022-05-23 00:00 Allergy, unspecified, initial Walk-In Clinic Primary Care & encounter [facility] 2022-05-23 00:00 Allergy, unspecified, initial Walk-In Clinic Primary Care & encounter [facility]illary Services [facility] 2022-07-18 00:00 Headache Walk-In Clinic Prim [facility]adyn [facility] & [facility] Services [facility] 2022-07-18 00:00 Headache, unspecified Walk-In Clinic P rimary [facility] Procedures date description facility 2022-05-21 00:00 Visit Code Hold Walk-In [facility] Prim [facility] 2022-05-21 00:00 Visit Code Hold Walk-In [facility] Prim [facility] 2022-05-21 00:00 Visit Code Hold Walk-In Clinic Prim [facility] 2022-05-21 00:00 Visit Code Hold Walk-In Clinic Prim [facility] 2022-05-22 00:00 Visit Code Hold Walk-In Clinic Prim [facility] 2022-05-22 00:00 Visit Code Hold Walk-In [facility] Prim [facility] 2022-05-22 00:00 Visit Code Hold Walk-In Clinic Prim [facility] 2022-05-22 00:00 Visit Code Hold Walk-In Clinic Prim [facility] 2022-05-22 00:00 Visit Code Hold Walk-In Clinic Prim [facility] 2022-05-23 00:00 Visit Code Hold Walk-In Clinic Prim [facility] 2022-05-23 00:00 Visit Code Hold Walk-In Clinic Prim [facility] 2022-05-23 00:00 Visit Code Hold [facility] 2022-05-23 00:00 Visit Code Hold [facility] 2022-07-18 00:00 Visit Code Hold [facility] 2022-05-23 00:00 POC GLUCOSE BLOOD TEST [facility] 2022-05-23 00:00 POC GLUCOSE BLOOD TEST [facility] [place] 2022-05-23 00:00 POC GLUCOSE BLOOD TEST [facility] [place] 2022-05-23 00:00 POC GLUCOSE BLOOD TEST [facility] 2022-07-18 00:00 COVID, FLU A+B Antigen (In Clinic [facility] Free Test) [facility] 2022-05-23 00:00 EKG Office Complete [facility] 2022-05-23 00:00 EKG Office Complete [facility] [place] 2022-05-23 00:00 EKG Office Complete [facility] [place] 2022-05-23 00:00 EKG Office Complete [facility] [place] 2022-05-23 00:00 IM or SQ Injection [facility] 2022-05-23 00:00 IM or SQ Injection [facility] [place] 2022-05-23 00:00 IM or SQ Injection [facility] [place] 2022-05-23 00:00 IM or SQ Injection [facility] [place] 2022-05-23 00:00 EpiPen 0.3mg [facility] [place] 2022-05-23 00:00 EpiPen 0.3mg [facility] [place] 2022-05-23 00:00 EpiPen 0.3mg [facility] [place] 2022-05-23 00:00 EpiPen 0.3mg [facility] [place] 2022-05-23 00:00 Depo-Medrol 80mg/ml [facility] [place] 2022-05-23 00:00 Depo-Medrol 80mg/ml [facility] [place] 2022-05-23 00:00 Depo-Medrol 80mg/ml [facility] [place] 2022-05-23 00:00 Depo-Medrol 80mg/ml [facility] [place] Results/Labs test date author facility value unit interpret ation Result panel 1 (unknown) (no date) (unknown) Walk-In (no value) (units (unk nown) Clinic Primary unknown) [facility] Result panel 2 (unknown) (no date) (unknown) Walk-In (no value) (units (unk nown) Clinic Primary unknown) [facility] Result panel 3 (unknown) (no date) (unknown) Walk-In (no value) (units (unk nown) Clinic Primary unknown) [facility] Result panel 4 (unknown) (no date) (unknown) Walk-In (no value) (units (unk nown) Clinic Primary unknown) [facility] Result panel 5 (unknown) (no date) (unknown) Walk-In (no value) (units (unk nown) Clinic Primary unknown) [facility] Result panel 6 (unknown) (no date) (unknown) Walk-In (no value) (units (unk nown) Clinic Primary unknown) [facility] Result panel 7 (unknown) (no date) (unknown) Walk-In (no value) (units (unk nown) Clinic Primary unknown) [facility] Social History date description facility 2022-05-22 00:00 Unknown if ever smoked [facility] [place] 2022-05-23 00:00 Unknown if ever smoked [facility] [place] 2022-05-23 00:00 Unknown if ever smoked [facility] [place] 2022-05-28 00:00 Unknown if ever smoked [facility] [place] 2022-06-03 00:00 Unknown if ever smoked [facility] [place] 2022-07-18 00:00 Unknown if ever smoked [facility] [place] 2022-07-22 00:00 Unknown if ever smoked [facility] [place] Vital Signs date measurement value units 2022-05-22 00:00 BMI 36.32 kg/m2 2022-05-22 00:00 BP_diastolic 91 mmHg 2022-05-22 00:00 BP_systolic 148 mmHg 2022-05-22 00:00 heart_rate 80 /min 2022-05-22 00:00 height_metric 172.72 cm 2022-05-22 00:00 height_standard 68 in 2022-05-22 00:00 respiration_rate 22 /min 2022-05-22 00:00 weight_metric 107.95 kg 2022-05-22 00:00 weight_standard 238 lb 2022-05-23 00:00 BMI 36.32 kg/m2 2022-05-23 00:00 BP_diastolic 88 mmHg 2022-05-23 00:00 BP_systolic 148 mmHg 2022-05-23 00:00 heart_rate 105 /min 2022-05-23 00:00 height_metric 172.72 cm 2022-05-23 00:00 height_standard 68 in 2022-05-23 00:00 respiration_rate 24 /min 2022-05-23 00:00 temperature_metric 37.06 C 2022-05-23 00:00 temperature_standard 98.7 F 2022-05-23 00:00 weight_metric 107.95 kg 2022-05-23 00:00 weight_standard 238 lb 2022-07-18 00:00 BMI 36.62 kg/m2 2022-07-18 00:00 BP_diastolic 91 mmHg 2022-07-18 00:00 BP_systolic 146 mmHg 2022-07-18 00:00 heart_rate 76 /min 2022-07-18 00:00 height_metric 172.72 cm 2022-07-18 00:00 height_standard 68 in 2022-07-18 00:00 respiration_rate 18 /min 2022-07-18 00:00 temperature_metric 37.06 C 2022-07-18 00:00 temperature_standard 98.7 F 2022-07-18 00:00 weight_metric 108.86 kg 2022-07-18 00:00 weight_standard 240 lb
--- NOTE | 2022-07-28 16:39 | XRAY Report ---
PROCEDURE: Foot 3 View LT INDICATIONS: Trauma TECHNIQUE: 3 views of the foot were acquired. COMPARISON: None FINDINGS: Bones: There is a mildly to moderately displaced fracture of the proximal aspect of the proximal phal anx of the fifth toe. No definite intra-articular involvement can be seen. No additional fractures can be seen. Postoperative change of the navicular bone can be seen. Soft tissues: No tibiotalar joint effusion. Achilles tendon appears normal. IMPRESSION: Fifth toe fracture. Reviewed by: Chapin Posada MD on 07/28/2022 3:38 PM [facility] Approved by: Chapin Posada MD on 07/28/2022 3:38 PM [facility] Station ID: [id number]
--- NOTE | 2022-07-28 16:54 | ED Physician Documentation ---
PD HPI UPPER EXT INJURY - Stated complaint Stated Complaint: L TOE INJ - Chief complaint Chief Complaint: Trauma Ext - History obtained from History obtained from: Patient (She jammed her left small toe against a door just prior to arrival with severe pain. 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: Ovarian cysts : Kidney stones, Other Psych: Depression, Anxiety - Past Surgical History Past Surgical History: Yes /DOCTOR [employer] NATUROPATHIC MEDICINE: Other - Present Medications Home Medications: Ambulatory Orders Medication Instructions Recorded Confirmed Sertraline HCl 200 mg PO DAILY 01/31/22 01/31/22 traZODone [Desyrel] 25 mg PO HS PRN 01/31/22 01/31/22 Cyclobenzaprine [Flexeril] 10 mg PO TID PRN #12 tablet 03/11/22 Ibuprofen [Motrin] 600 mg PO Q6H PRN #30 tab 03/11/22 Lidocaine Patch 5% [Lidoderm Patch] 1 patch TOP DAILY PRN #10 patch 03/11/22 EPINEPHrine [Epinephrine] 0.3 mg IJ ONCE PRN #2 each 05/21/22 Cetirizine [ZyrTEC] 10 mg PO BID #20 tablet 05/23/22 LORazepam [Ativan] 1 mg PO BID PRN #12 tablet 05/23/22 dexAMETHasone [Decadron] 4 mg PO DAILY #5 tablet 05/23/22 oxyCODONE [Roxicodone] 5 mg PO BID PRN #10 tablet 06/05/22 HYDROcod/ACETAM 5/325 [[place] 5/325] 1 - 2 tab PO Q6H PRN #15 tablet 07/28/22 - Allergies Allergies/Adverse Reactions: Allergies Allergy/AdvReac Type Severity Reaction Status Date / Time ciprofloxacin [From Cipro] Allergy Rash Verified 07/28/22 15:56 duloxetine [From Cymbalta] Allergy Unknown Verified 07/28/22 15:56 Iodinated Contrast Media Allergy Respiratory Verified 07/28/22 15:56 Penicillins Allergy Anaphylaxis Verified 07/28/22 15:56 - Social History Does the pt smoke?: Yes Smoking Status: Current every day smoker Does the pt drink ETOH?: Yes Does the pt have substance abuse?: No - Immunizations Immunizations are current?: Yes - POLST Patient has POLST: No PD ED PE NORMAL - Vitals Vital signs reviewed: Yes - General General: Alert and oriented X 3, Other (Panicky) - Extremities Extremities: Other (There is a lateral deformity of the left toe with severe tenderness at the base.) - Neuro Neuro: Alert and oriented X 3, Normal speech Results - Vitals Vitals: Vital Signs - 24 hr 07/28/22 15:56 Temperature 36.5 C Heart Rate 96 Respiratory 18 Rate Blood Pressure 119/71 O2 Saturation 99 Oxygen O2 Source Room air - Rads (name of study) X-ray of the left foot demonstrates a fracture of the proximal phalanx of the fifth toe with displacement Radiology: Final report received, EMP read indepedently Procedures - Reduction Body part reduced: Left, Toe Fracture or dislocation: Fracture dislocation Anesthesia: Digital block (buffered lido) Reduction aftercare: Splint applied, Crutches PD Medical Decision Making - ED course ED course: 26-year-old woman presents with a displaced toe fracture. Digital block was done with buffered lidocaine and the toe was reduced and judith taped and she was placed in a fracture shoe. Departure - Departure Disposition: Home, Self Care Clinical Impression: Fracture of proximal phalanx of toe of left foot Condition: Good Record reviewed to determine appropriate education?: Yes Instructions: ED Fx Toe Closed Follow-Up: Orthopedic Care [Provider Group] - Within 1 week Prescriptions: HYDROcod/ACETAM 5/325 [[place] 5/325] 1 - 2 tab PO Q6H PRN #15 tablet PRN Reason: Pain Comments: I sent your prescriptions electronically to [facility]. Followup with orthopedics, call tomorrow for appt. Keep the toes taped together as shown and wear the shoe when up and around. I am prescribing a short course of narcotic pain medication for you. These are potentially dangerous and addictive medications that should be used carefully. These medications may constipate you. Take an wgnf-rci-nfhlwal stool softener (docusate) twice daily with plenty of water while taking these medications. If you go 24 hours without a bowel movement, take [id number] miralax, per package instructions. Do not drink or drive while taking these medications. If you received narcotic or sedating medications while in the emergency department, do not drive for 24 hours. Store this medication in a safe, secure place and out of reach of children. It is a violation of federal law to give or sell this medication to another person or to use in a manner other than prescribed. The ED will not refill narcotic prescriptions, including prescriptions lost or stolen. To dispose of unwanted medications: 1. [facility] [address] in [place] has a medication drop box. They accept prescription medications (in pill form) Thursday through Thursday 9:00 a.m. to 5:00 p.m. 2. The [facility] accepts prescription medications (in pill form only) for disposal year round. Call for more information. 3. Contact the [facility] for the next [facility] sponsored prescription drug collection event. , [phone], or [phone]; Note that many narcotic pain relievers also contain Tylenol/acetaminophen. Please ensure that your total dose of acetaminophen from all sources does not exceed 3 g (3000 mg) per day. Forms: Activity restrictions
== END 2022-07-28 17:57 | disposition home or self-care (01) ==
LOC: ED 15:49
DX: S92.512A Displaced fracture of proximal phalanx of left lesser toe(s), initial encounter for closed fracture (principal); W22.8XXA Striking against or struck by other objects, initial encounter; E11.9 Type 2 diabetes mellitus without complications; F17.200 Nicotine dependence, unspecified, uncomplicated
CPT/HCPCS: 28515

== ENCOUNTER 2022-12-10 15:35 | Outpatient (CLI) | payer MEDICAID | END 2022-12-10 23:59 | disposition critical access hospital (66) | LOC: EMS 15:35 | DX: R09.89 Other specified symptoms and signs involving the circulatory and respiratory systems (principal); L50.9 Urticaria, unspecified; R06.00 Dyspnea, unspecified | CPT/HCPCS: A0425; A0427; A0999 ==

== ENCOUNTER 2022-12-10 16:03 | Emergency (ER) | payer OTHER, MEDICAID ==
--- NOTE | 2022-12-10 16:16 | ED Physician Documentation ---
History of Present Illness - Stated complaint Stated Complaint: ALLERGIC REACTION - Additonal information Additional information: 27-year-old female presents to the emergency department for evaluation of anaphylaxis to suspected bee envenomation. 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 She found out last summer that she had an allergy to hornet stings. She was on the job but when she felt a sting on her forehead and right shoulder. She began having difficulty breathing. She self-administered epi without improvement in symptoms. She then went to a local walk-in clinic where epinephrine was again administered. They described her as having a swollen posterior oropharynx. She also received 10 mg of Decadron orally and 50 mg of Benadryl IM. Given lack of improvement in symptoms EMS was summoned. EMS delivered a third dose of 0.3 mg epinephrine in route. They also administered an additional 50 mg of Benadryl IV as well as gave 125 mg of Solu-Medrol. On presentation to the emergency department the patient is alert. She is anxious appearing and she is tachypneic but supporting her airway and moving air well in all lung kramer. Room air saturations are 100%. No wheezes noted. 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: Other - Present Medications Home Medications: Ambulatory Orders Medication Instructions Recorded Confirmed Sertraline HCl 200 mg PO DAILY 01/31/22 01/31/22 traZODone [Desyrel] 25 mg PO HS PRN 01/31/22 01/31/22 Cyclobenzaprine [Flexeril] 10 mg PO TID PRN #12 tablet 03/11/22 Ibuprofen [Motrin] 600 mg PO Q6H PRN #30 tab 03/11/22 Lidocaine Patch 5% [Lidoderm Patch] 1 patch TOP DAILY PRN #10 patch 03/11/22 EPINEPHrine [Epinephrine] 0.3 mg IJ ONCE PRN #2 each 05/21/22 Cetirizine [ZyrTEC] 10 mg PO BID #20 tablet 05/23/22 LORazepam [Ativan] 1 mg PO BID PRN #12 tablet 05/23/22 dexAMETHasone [Decadron] 4 mg PO DAILY #5 tablet 05/23/22 oxyCODONE [Roxicodone] 5 mg PO BID PRN #10 tablet 06/05/22 HYDROcod/ACETAM 5/325 [[place] 5/325] 1 - 2 tab PO Q6H PRN #15 tablet 07/28/22 EPINEPHrine [Epinephrine] 0.3 mg IJ ONCE PRN #1 each 12/10/22 - Allergies Allergies/Adverse Reactions: Allergies Allergy/AdvReac Type Severity Reaction Status Date / Time ciprofloxacin [From Cipro] Allergy Rash Verified 07/28/22 15:56 duloxetine [From Cymbalta] Allergy Unknown Verified 07/28/22 15:56 Iodinated Contrast Media Allergy Respiratory Verified 07/28/22 15:56 Penicillins Allergy Anaphylaxis Verified 07/28/22 15:56 - Social History Does the pt smoke?: Yes Smoking Status: Current every day smoker Does the pt drink ETOH?: Yes Does the pt have substance abuse?: No - Immunizations Immunizations are current?: Yes - POLST Patient has POLST: No PD ED PE EXPANDED - General General: Alert, Anxious - HEENT HEENT: Other (Beefy red posterior oropharynx. Tonsils 1+ swelling but no uvula or soft palate asymmetry or swelling. No tongue or lip swelling. Patient is supporting her airway though tachypneic.) - Cardiac Cardiac: Tachy, Radial strong equal, Pedal strong equal, Cap refill < 2 sec - Respiratory Respiratory: Clear to ausultation loan, Other (Tachypneic 30's) - Abdomen Abdomen: Normal Bowel sounds. No: Tender to palpation - Derm Derm: Normal color. No: Rash - Neuro Neuro: Alert and Oriented X 3, CNII-XII intact - GCS Eye Opening: Spontaneous Motor: Obeys Commands Verbal: Oriented Total: 15 Results - Vitals Vitals: Vital Signs - 24 hr 12/10/22 12/10/22 12/10/22 16:11 16:44 17:14 Temperature Heart Rate 110 H 107 H 118 H Respiratory 32 H 16 28 H Rate Blood Pressure 147/86 H 128/75 136/111 H O2 Saturation 100 100 100 12/10/22 12/10/22 12/10/22 17:44 18:53 19:26 Temperature Heart Rate 102 H 89 89 Respiratory 22 18 16 Rate Blood Pressure 101/83 H 126/79 138/89 H O2 Saturation 97 98 90 L 12/10/22 12/10/22 12/10/22 19:53 20:40 20:48 Temperature Heart Rate 83 89 95 Respiratory 17 18 16 Rate Blood Pressure 148/95 H 95/74 114/89 H O2 Saturation 97 99 98 12/10/22 12/10/22 21:20 21:29 Temperature 37.1 C Heart Rate 94 Respiratory 16 Rate Blood Pressure 101/68 O2 Saturation 99 Oxygen O2 Source Room air - EKG (time done) 1611 EKG releavant findings:: EKG personally interpreted by author of this note. Relevant findings are: Rate: Rate (enter#) (105) Rhythm: Sinus tachycardia [place]: Normal Intervals: Normal [place] QRS: Normal Ischemia: Other (rsr prime) Compare to prior EKG: Old EKG unavailable Computer interpretation: Agree with computer - Labs Labs: Laboratory Tests 12/10/22 12/10/22 16:16 16:16 WBC 11.0 H RBC 4.29 Hgb 13.0 Hct 38.1 MCV 88.8 MCH 30.3 MCHC 34.1 RDW 13.2 Plt Count 324 MPV 9.2 Neut # (Auto) 7.3 H Lymph # (Auto) 2.5 Weber # (Auto) 0.9 Eos # (Auto) 0.2 Baso # (Auto) 0.1 Absolute Nucleated RBC 0.00 Nucleated RBC % 0.0 Sodium 138 Potassium 3.4 L Chloride 104 Carbon Dioxide 23 Anion Gap 11.0 BUN 14 Creatinine 1.0 Estimated GFR (MDRD) 66 L Glucose 153 H Calcium 8.7 Total Bilirubin 0.3 AST 18 ALT 13 Alkaline Phosphatase 52 Total Protein 7.5 Albumin 3.6 Globulin 3.9 Albumin/Globulin Ratio 0.9 L Lipase 32 - Rads (name of study) cxr Relevant Findings:: EMP independent interpretation of test (No acute cardiopulmonary process) PD Medical Decision Making - ED course Complexity details: reviewed results, re-evaluated patient, d/w patient ED course: 27-year-old female who has a 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 She had received a total of 0.3 mg of epinephrine IM x3 prior to arrival in the ER. She also received 10 mg of Decadron orally and 125 mg of Solu-Medrol IV. Walk-in clinic provider had injected her with 50 mg of Benadryl and EMS repeated that dose with an additional 50 mg IV. On presentation the patient is alert though anxious appearing. She is supporting her airway. There is no tongue or lip swelling. We do note a beefy red posterior oropharynx with scant tonsillar swelling. There is no uvula edema swelling or soft palate asymmetry. The patient is complaining of pain at the injection site On her left leg where she had received epinephrine. She describes it as a burning searing pain. She is moaning and uncomfortable due to this but is easily able to support her airway. I evaluated this injection site and there is a small amount of bruising around it. 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 Due to the pain at the injection site she is administered 1 mg of Dilaudid IV and will be reassessed. Due to the volume of medications that she received prior to arrival she will need a lengthy observation time here in the emergency department before she is considered safe for discharge likely 6 hours with no further interventions. 2145: I have reevaluated the patient. She is feeling better. During her time here in the emergency department she is required no supplemental oxygen, has had no shortness of air, dysphonia difficulty breathing talking or swallowing. She has no tongue or lip swelling. No swelling in the posterior oropharynx. She has been observed now for approximately 6 hours and is requesting to be discharged home. I have written a refill for epinephrine. 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 [employer] [facility] [employer] [id number] completed at the bedside Departure - Departure Disposition: Home, Self Care Clinical Impression: Anaphylactic reaction to bee sting Qualifiers: Encounter type: initial encounter Injury intent: accidental or unintentional Qualified Code(s): T63.441A - Toxic effect of venom of bees, accidental (unintentional), initial encounter Condition: Stable Record reviewed to determine appropriate education?: Yes Instructions: ED Bite Sting Insect Gen Allergic React Prescriptions: EPINEPHrine [Epinephrine] 0.3 mg IJ ONCE PRN #1 each PRN Reason: Anaphylaxis Comments: Sabrina you are seen today in the emergency department after you were stung 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 You did receive 3 doses of epinephrine with EMS and through the walk-in clinic. However you have not received any now for 6 hours and your airway has remained stable. You did receive some methylprednisolone which is a steroid as well as some Decadron. I have sent a refill for the [facility]piPen to [facility] in [place]. 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
[2022-12-10 16:21] LABS: BASOPHILS # (AUTO) 0.1 10^3/uL (0.0-0.1); BASOPHILS % (AUTO) 0.5 %; EOSINOPHILS # (AUTO) 0.2 10^3/uL (0.0-0.7); EOSINOPHILS % (AUTO) 1.8 %; HCT - HEMATOCRIT 38.1 % (37.0-47.0); LYMPHOCYTES # (AUTO) 2.5 10^3/uL (1.5-3.5); MEAN CORPUSCULAR HEMOGLOBIN 30.3 pg (27.0-31.0); MEAN CORPUSCULAR HGB CONC 34.1 g/dL (32.0-36.0); MEAN CORPUSCULAR VOLUME 88.8 fL (81.0-99.0); MEAN PLATELET VOLUME 9.2 fL (7.9-10.8); MONOCYTES # (AUTO) 0.9 10^3/uL (0.0-1.0); MONOCYTES % (AUTO) 8.4 %; NEUTROPHILS # (AUTO) 7.3 10^3/uL (1.5-6.6); NEUTROPHILS % (AUTO) 66.1 %; PLT - PLATELET COUNT 324 10^3/uL (130-450); RED BLOOD COUNT 4.29 10^6/uL (4.20-5.40); RED CELL DISTRIBUTION WIDTH 13.2 % (12.0-15.0)
[2022-12-10 16:34] LABS: ALBUMIN 3.6 g/dL (3.2-5.5); ALBUMIN/GLOBULIN RATIO 0.9 (1.0-2.2); BILIRUBIN,TOTAL 0.3 mg/dL (0.2-1.0); CALCIUM 8.7 mg/dL (8.5-10.3); POTASSIUM 3.4 mmol/L (3.5-5.0); TOTAL PROTEIN 7.5 g/dL (6.7-8.2)
--- NOTE | 2022-12-10 16:37 | XRAY Report ---
PROCEDURE: Chest 1 View X-Ray INDICATIONS: Chest Pain TECHNIQUE: One view of the chest was acquired. COMPARISON: None. FINDINGS: Surgical changes and devices: None. Lungs and pleura: No pleural effusions or pneumothorax. Mild pulmonary vascular congestion is seen. No definite focal infiltrate.. Mediastinum: Mediastinal contours appear normal. Heart size is normal. Bones and chest wall: No suspicious bony lesions. Overlying soft tissues appear unremarkable. IMPRESSION: Mild pulmonary vascular congestion. No focal infiltrate, pleural effusion or pneumothorax. Reviewed by: Goyo Valentine MD on 12/10/2022 3:36 PM [facility] Approved by: Goyo Valentine MD on 12/10/2022 3:36 PM [facility] Station ID: [id number]
[2022-12-10] MEDS ORDERED: HYDROmorphone 1 MG/ML CARPUJECT IVP STA (17:23)
--- OUTSIDE RECORDS SUMMARY | 2022-12-10 17:42 | EXTERNAL MEDICAL SUMMARY RPT | Continuity of Care Document ---
Author Name Unknown Address [address] [place] [address] Phone Organization [place] Address [address] [place] [address] Phone Care Team Providers Care Back End Architect Name Role Phone Unavailable Unavailable Unavailable Stephen Villar Pa-C Unavailable Unavailable Niko Moreno Unavailable Unavailable Allergies and Intolerances date description facility type (no date) [facility] (unknown) (no date) ciprofloxacin [facility]ations date description facility 2022-12-10 00:00 oseltamivir [facility] [place] 2022-12-10 00:00 venlafaxine [facility] [place] 2022-12-10 00:00 DIPHENHYDRAMINE HCL [facility] [place] 2022-12-10 00:00 oseltamivir [facility] [place] 2022-12-10 00:00 cholecalciferol (vitamin d3) [facility] [place] 2022-12-10 00:00 cholecalciferol (vitamin d3) [facility] [place] 2022-12-10 00:00 omeprazole [facility] [place] 2022-12-10 00:00 trazodone [facility] [place] 2022-12-10 00:00 pantoprazole [facility] [place] 2022-12-10 00:00 oseltamivir [facility] [place] 2022-12-10 00:00 DEXAMETHASONE SODIUM PHOSPHATE [facility] [place] 2022-12-10 00:00 sucralfate [facility] [place] 2022-12-10 00:00 sucralfate [facility] [place] 2022-12-10 00:00 venlafaxine [facility] [place] 2022-12-10 00:00 venlafaxine [facility] [place] 2022-12-10 00:00 venlafaxine [facility] [place] 2022-12-10 00:00 albuterol sulfate [facility] [place] 2022-12-10 00:00 fluticasone propionate [facility] [place] 2022-12-10 00:00 albuterol sulfate [facility] [place] 2022-12-10 00:00 omeprazole [facility] [place] 2022-12-10 00:00 pantoprazole [facility] [place] 2022-12-10 00:00 sucralfate [facility] [place] 2022-12-10 00:00 trazodone [facility] [place] 2022-12-10 00:00 pantoprazole [facility] [place] 2022-12-10 00:00 trazodone [facility] [place] 2022-12-10 00:00 venlafaxine [facility] [place] 2022-12-10 00:00 venlafaxine [facility] [place] 2022-12-10 00:00 omeprazole [facility] [place] 2022-12-10 00:00 pantoprazole [facility] [place] 2022-12-10 00:00 oseltamivir [facility] [place] 2022-12-10 00:00 omeprazole [facility] [place] 2022-12-10 00:00 venlafaxine [facility] [place] 2022-12-10 00:00 sucralfate [facility] [place] 2022-12-10 00:00 albuterol sulfate [facility] [place] 2022-12-10 00:00 fluticasone propionate [facility] [place] 2022-12-10 00:00 cholecalciferol (vitamin d3) [facility] [place] 2022-12-10 00:00 venlafaxine [facility] [place] 2022-12-10 00:00 EPINEPHRINE [facility] [place] 2022-12-10 00:00 cholecalciferol (vitamin d3) [facility] [place] 2022-12-10 00:00 albuterol sulfate [facility] [place] 2022-12-10 00:00 trazodone [facility] [place] 2022-12-10 00:00 fluticasone propionate [facility] [place] 2022-12-10 00:00 fluticasone propionate [facility] [place] Problems date description facility 2022-10-07 00:00 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 Procedures date description facility 2022-12-10 00:00 Visit Code Hold [facility] [place] 2022-10-07 00:00 Computed tomography of head or brain without contrast [facility] Results/Labs test date author facility value unit interpretation Result panel 1 (unknown) (no date) (unknown) [facility] (no value) (units unknown) (unknown) Result panel 2 (unknown) (no date) (unknown) [facility] (no value) (units unknown) (unknown) Result panel 3 (unknown) (no date) (unknown) [facility] (no value) (units unknown) (unknown) Result panel 4 (unknown) (no date) (unknown) [facility] (no value) (units unknown) (unknown) Result panel 5 (unknown) (no date) (unknown) [facility] (no value) (units unknown) (unknown) Result panel 6 (unknown) (no date) (unknown) [facility] (no value) (units unknown) (unknown) Result panel 7 (unknown) (no date) (unknown) [facility] (no value) (units unknown) (unknown) Result panel 8 (unknown) (no date) (unknown) [facility] (no value) (units unknown) (unknown) Result panel 9 (unknown) (no date) (unknown) [facility] (no value) (units unknown) (unknown) Result panel 10 (unknown) (no date) (unknown) [facility] (no value) (units unknown) (unknown) Result panel 11 (unknown) (no date) (unknown) [facility] (no value) (units unknown) (unknown) Result panel 12 (unknown) (no date) (unknown) [facility] (no value) (units unknown) (unknown) Result panel 13 (unknown) (no date) (unknown) [facility] (no value) (units unknown) (unknown) Result panel 14 (unknown) (no date) (unknown) [facility] (no value) (units unknown) (unknown) Result panel 15 (unknown) (no date) (unknown) [facility] (no value) (units unknown) (unknown) Result panel 16 (unknown) (no date) (unknown) [facility] (no value) (units unknown) (unknown) Result panel 17 (unknown) (no date) (unknown) [facility] (no value) (units unknown) (unknown) Result panel 18 (unknown) (no date) (unknown) [facility] (no value) (units unknown) (unknown) Result panel 19 (unknown) (no date) (unknown) [facility] (no value) (units unknown) (unknown) Result panel 20 (unknown) (no date) (unknown) [facility] (no value) (units unknown) (unknown) Result panel 21 (unknown) (no date) (unknown) [facility] (no value) (units unknown) (unknown) Result panel 22 (unknown) (no date) (unknown) [facility] (no value) (units unknown) (unknown) Result panel 23 (unknown) (no date) (unknown) [facility] (no value) (units unknown) (unknown) Result panel 24 (unknown) (no date) (unknown) [facility] (no value) (units unknown) (unknown) Result panel 25 (unknown) (no date) (unknown) [facility] (no value) (units unknown) (unknown) Result panel 26 (unknown) (no date) (unknown) [facility] (no value) (units unknown) (unknown) Result panel 27 (unknown) (no date) (unknown) [facility] (no value) (units unknown) (unknown) Result panel 28 (unknown) (no date) (unknown) [facility] (no value) (units unknown) (unknown) Result panel 29 (unknown) (no date) (unknown) [facility] (no value) (units unknown) (unknown) Result panel 30 (unknown) (no date) (unknown) [facility] (no value) (units unknown) (unknown) Result panel 31 (unknown) (no date) (unknown) [facility] (no value) (units unknown) (unknown) Result panel 32 (unknown) (no date) (unknown) [facility] (no value) (units unknown) (unknown) Result panel 33 (unknown) (no date) (unknown) [facility] (no value) (units unknown) (unknown) Result panel 34 (unknown) (no date) (unknown) [facility] (no value) (units unknown) (unknown) Result panel 35 (unknown) (no date) (unknown) [facility] (no value) (units unknown) (unknown) Result panel 36 (unknown) (no date) (unknown) [facility] (no value) (units unknown) (unknown) Result panel 37 (unknown) (no date) (unknown) [facility] (no value) (units unknown) (unknown) Result panel 38 (unknown) (no date) (unknown) [facility] (no value) (units unknown) (unknown) Result panel 39 (unknown) (no date) (unknown) [facility] (no value) (units unknown) (unknown) Result panel 40 (unknown) (no date) (unknown) [facility] (no value) (units unknown) (unknown) Result panel 41 (unknown) (no date) (unknown) [facility] (no value) (units unknown) (unknown) Result panel 42 (unknown) (no date) (unknown) [facility] (no value) (units unknown) (unknown) Result panel 43 (unknown) (no date) (unknown) [facility] (no value) (units unknown) (unknown) Result panel 44 (unknown) (no date) (unknown) [facility] (no value) (units unknown) (unknown) Result panel 45 (unknown) (no date) (unknown) [facility] (no value) (units unknown) (unknown) Result panel 46 (unknown) (no date) (unknown) [facility] (no value) (units unknown) (unknown) Result panel 47 (unknown) (no date) (unknown) [facility] (no value) (units unknown) (unknown) Result panel 48 (unknown) (no date) (unknown) [facility] (no value) (units unknown) (unknown) Result panel 49 (unknown) (no date) (unknown) [facility] (no value) (units unknown) (unknown) Result panel 50 (unknown) (no date) (unknown) [facility] (no value) (units unknown) (unknown) Result panel 51 (unknown) (no date) (unknown) [facility] (no value) (units unknown) (unknown) Result panel 52 (unknown) (no date) (unknown) [facility] (no value) (units unknown) (unknown) Result panel 53 (unknown) (no date) (unknown) [facility] (no value) (units unknown) (unknown) Result panel 54 (unknown) (no date) (unknown) [facility] (no value) (units unknown) (unknown) Result panel 55 (unknown) (no date) (unknown) [facility] (no value) (units unknown) (unknown) Result panel 56 (unknown) (no date) (unknown) [facility] (no value) (units unknown) (unknown) Result panel 57 (unknown) (no date) (unknown) [facility] (no value) (units unknown) (unknown) Result panel 58 (unknown) (no date) (unknown) [facility] (no value) (units unknown) (unknown) Result panel 59 (unknown) (no date) (unknown) [facility] (no value) (units unknown) (unknown) Result panel 60 (unknown) (no date) (unknown) [facility] (no value) (units unknown) (unknown) Result panel 61 (unknown) (no date) (unknown) [facility] (no value) (units unknown) (unknown) Result panel 62 (unknown) (no date) (unknown) [facility] (no value) (units unknown) (unknown) Result panel 63 (unknown) (no date) (unknown) [facility] (no value) (units unknown) (unknown) Result panel 64 (unknown) (no date) (unknown) [facility] (no value) (units unknown) (unknown) Result panel 65 (unknown) (no date) (unknown) [facility] (no value) (units unknown) (unknown) Result panel 66 (unknown) (no date) (unknown) [facility] (no value) (units unknown) (unknown) Result panel 67 (unknown) (no date) (unknown) [facility] (no value) (units unknown) (unknown) Result panel 68 (unknown) (no date) (unknown) [facility] (no value) (units unknown) (unknown) Result panel 69 (unknown) (no date) (unknown) [facility] (no value) (units unknown) (unknown) Result panel 70 (unknown) (no date) (unknown) [facility] (no value) (units unknown) (unknown) Result panel 71 (unknown) (no date) (unknown) [facility] (no value) (units unknown) (unknown) Result panel 72 (unknown) (no date) (unknown) [facility] (no value) (units unknown) (unknown) Result panel 73 (unknown) (no date) (unknown) [facility] (no value) (units unknown) (unknown) Result panel 74 (unknown) (no date) (unknown) [facility] (no value) (units unknown) (unknown) Result panel 75 (unknown) (no date) (unknown) [facility] (no value) (units unknown) (unknown) Result panel 76 (unknown) (no date) (unknown) [facility] (no value) (units unknown) (unknown) Result panel 77 (unknown) (no date) (unknown) [facility] (no value) (units unknown) (unknown) Result panel 78 (unknown) (no date) (unknown) [facility] (no value) (units unknown) (unknown) Result panel 79 (unknown) (no date) (unknown) [facility] (no value) (units unknown) (unknown) Result panel 80 (unknown) (no date) (unknown) [facility] (no value) (units unknown) (unknown) Result panel 81 (unknown) (no date) (unknown) [facility] (no value) (units unknown) (unknown) Result panel 82 (unknown) (no date) (unknown) [facility] (no value) (units unknown) (unknown) Result panel 83 (unknown) (no date) (unknown) [facility] (no value) (units unknown) (unknown) Result panel 84 (unknown) (no date) (unknown) [facility] (no value) (units unknown) (unknown) Result panel 85 (unknown) (no date) (unknown) [facility] (no value) (units unknown) (unknown) Result panel 86 (unknown) (no date) (unknown) [facility] (no value) (units unknown) (unknown) Result panel 87 (unknown) (no date) (unknown) [facility] (no value) (units unknown) (unknown) Result panel 88 (unknown) (no date) (unknown) [facility] (no value) (units unknown) (unknown) Result panel 89 (unknown) (no date) (unknown) [facility] (no value) (units unknown) (unknown) Result panel 90 (unknown) (no date) (unknown) [facility] (no value) (units unknown) (unknown) Result panel 91 (unknown) (no date) (unknown) [facility] (no value) (units unknown) (unknown) Result panel 92 (unknown) (no date) (unknown) [facility] (no value) (units unknown) (unknown) Result panel 93 (unknown) (no date) (unknown) [facility] (no value) (units unknown) (unknown) Result panel 94 (unknown) (no date) (unknown) [facility] (no value) (units unknown) (unknown) Result panel 95 (unknown) (no date) (unknown) [facility] (no value) (units unknown) (unknown) Result panel 96 (unknown) (no date) (unknown) [facility] (no value) (units unknown) (unknown) Result panel 97 (unknown) (no date) (unknown) [facility] (no value) (units unknown) (unknown) Result panel 98 (unknown) (no date) (unknown) [facility] (no value) (units unknown) (unknown) Result panel 99 (unknown) (no date) (unknown) [facility] (no value) (units unknown) (unknown) Result panel 100 (unknown) (no date) (unknown) [facility] (no value) (units unknown) (unknown) Result panel 101 (unknown) (no date) (unknown) [facility] (no value) (units unknown) (unknown) Result panel 102 (unknown) (no date) (unknown) [facility] (no value) (units unknown) (unknown) Result panel 103 (unknown) (no date) (unknown) [facility] (no value) (units unknown) (unknown) Result panel 104 (unknown) (no date) (unknown) [facility] (no value) (units unknown) (unknown) Result panel 105 (unknown) (no date) (unknown) [facility] (no value) (units unknown) (unknown) Result panel 106 (unknown) (no date) (unknown) [facility] (no value) (units unknown) (unknown) Result panel 107 (unknown) (no date) (unknown) [facility] (no value) (units unknown) (unknown) Result panel 108 (unknown) (no date) (unknown) [facility] (no value) (units unknown) (unknown) Result panel 109 (unknown) (no date) (unknown) [facility] (no value) (units unknown) (unknown) Result panel 110 (unknown) (no date) (unknown) [facility] (no value) (units unknown) (unknown) Result panel 111 (unknown) (no date) (unknown) [facility] (no value) (units unknown) (unknown) Result panel 112 (unknown) (no date) (unknown) [facility] (no value) (units unknown) (unknown) Result panel 113 (unknown) (no date) (unknown) [facility] (no value) (units unknown) (unknown) Result panel 114 (unknown) (no date) (unknown) [facility] (no value) (units unknown) (unknown) Result panel 115 (unknown) (no date) (unknown) [facility] (no value) (units unknown) (unknown) Result panel 116 (unknown) (no date) (unknown) [facility] (no value) (units unknown) (unknown) Result panel 117 (unknown) (no date) (unknown) [facility] (no value) (units unknown) (unknown) Result panel 118 (unknown) (no date) (unknown) [facility] (no value) (units unknown) (unknown) Result panel 119 (unknown) (no date) (unknown) [facility] (no value) (units unknown) (unknown) Result panel 120 (unknown) (no date) (unknown) [facility] (no value) (units unknown) (unknown) Result panel 121 (unknown) (no date) (unknown) (unknown) (no value) (units unknown) (unknown) (unknown) (no date) (unknown) (unknown) (Flovent HFA) (units unknown) (unknown) (unknown) (no date) (unknown) (unknown) 1 applic topic al BID Qty: 22 0RF (units unknown) (unknown) (unknown) (no date) (unknown) (unknown) 1 puff inhalat ion BID (units unknown) (unknown) (unknown) (no date) (unknown) (unknown) 10 meq PO DAILY (uni ts unknown) (unknown) (unknown) (no date) (unknown) (unknown) 100 mg PO BID PRN (Reason: cough) Qty: 20 0RF (units unknown) (unknown) (unknown) (no date) (unknown) (unknown) 100 mg PO DAILY (uni ts unknown) (unknown) (unknown) (no date) (unknown) (unknown) 15 mg PO DAILY (unit s unknown) (unknown) (unknown) (no date) (unknown) (unknown) 2 puff inhalat ion Q4-6H PRN (units unknown) (unknown) (unknown) (no date) (unknown) (unknown) 20 mg PO DAILY (unit s unknown) (unknown) (unknown) (no date) (unknown) (unknown) Age/Sex: 27 / F (uni ts unknown) (unknown) (unknown) (no date) (unknown) (unknown) Allergies (units unknown) (unknown) (unknown) (no date) (unknown) (unknown) Allergy/AdvRea c Type Severity Reaction Status Date / Time (units unknown) (unknown) (unknown) (no date) (unknown) (unknown) : 4 Acct:[id number] (units unknown) (unknown) (unknown) (no date) (unknown) (unknown) Date of Servic e: 10/07/22 (units unknown) (unknown) (unknown) (no date) (unknown) (unknown) Departure (units unknown) (unknown) (unknown) (no date) (unknown) (unknown) Discharge Plan (unit s unknown) (unknown) (unknown) (no date) (unknown) (unknown) ER Physician: Regina Murguia D.O. (units unknown) (unknown) (unknown) (no date) (unknown) (unknown) Emergency Report (un its unknown) (unknown) (unknown) (no date) (unknown) (unknown) Eustachian tub e dysfunction (units unknown) (unknown) (unknown) (no date) (unknown) (unknown) Flovent HFA 22 0 mcg/actuation HFA aerosol inhaler (units unknown) (unknown) (unknown) (no date) (unknown) (unknown) General (units unknown) (unknown) (unknown) (no date) (unknown) (unknown) HPI - Seizure (units unknown) (unknown) (unknown) (no date) (unknown) (unknown) Home Medications (un its unknown) (unknown) (unknown) (no date) (unknown) (unknown) [address] [address] (units unknown) (unknown) (unknown) (no date) (unknown) (unknown) [id number] (units unknown) (unknown) (unknown) (no date) (unknown) (unknown) Medical Histor y (units unknown) (unknown) (unknown) (no date) (unknown) (unknown) Medication Instructions Recorded Confirmed (units unknown) (unknown) (unknown) (no date) (unknown) (unknown) Medication Instructions Recorded (units unknown) (unknown) (unknown) (no date) (unknown) (unknown) Miscellaneous, Manjit shepherd MD [Primary Care Provider] (units unknown) (unknown) (unknown) (no date) (unknown) (unknown) No Action (units unknown) (unknown) (unknown) (no date) (unknown) (unknown) Patient History (uni ts unknown) (unknown) (unknown) (no date) (unknown) (unknown) Patient: Sabrina Hawkins MR#: (units unknown) (unknown) (unknown) (no date) (unknown) (unknown) Penicillins Al rosamariagy Severe anaphylaxis Verified 02/06/22 16:40 (units unknown) (unknown) (unknown) (no date) (unknown) (unknown) Prescriptions: (unit s unknown) (unknown) (unknown) (no date) (unknown) (unknown) Previous Rx's (units unknown) (unknown) (unknown) (no date) (unknown) (unknown) Referrals: (units unknown) (unknown) (unknown) (no date) (unknown) (unknown) Related Data (units unknown) (unknown) (unknown) (no date) (unknown) (unknown) Signed By: (units unknown) (unknown) (unknown) (no date) (unknown) (unknown) Smoking Status : Current every day smoker (units unknown) (unknown) (unknown) (no date) (unknown) (unknown) Social History (units unknown) (unknown) (unknown) (no date) (unknown) (unknown) Stated Complai nt: Seizure (units unknown) (unknown) (unknown) (no date) (unknown) (unknown) Substance Use Type: does not use (units unknown) (unknown) (unknown) (no date) (unknown) (unknown) Time Seen by Provider: 10/07/22 01:21 (units unknown) (unknown) (unknown) (no date) (unknown) (unknown) aerosol inhaler (uni ts unknown) (unknown) (unknown) (no date) (unknown) (unknown) albuterol sulf ate 90 mcg/actuation 2 puff inhalation Q4-6H PRN 04/27/21 02/06/22 (units unknown) (unknown) (unknown) (no date) (unknown) (unknown) albuterol sulf ate 90 mcg/actuation HFA aerosol inhaler (units unknown) (unknown) (unknown) (no date) (unknown) (unknown) alcohol intake frequency: a few times a week (units unknown) (unknown) (unknown) (no date) (unknown) (unknown) benzonatate 10 0 mg capsule 100 mg PO BID PRN cough #20 caps 08/31/22 (units unknown) (unknown) (unknown) (no date) (unknown) (unknown) benzonatate 10 0 mg capsule (units unknown) (unknown) (unknown) (no date) (unknown) (unknown) capsule,extend ed release (units unknown) (unknown) (unknown) (no date) (unknown) (unknown) ciprofloxacin Allergy Severe Anaphylaxis Verified 02/06/22 16:40 (units unknown) (unknown) (unknown) (no date) (unknown) (unknown) duloxetine Adv Reac Severe neurologica Verified 02/06/22 16:40 (units unknown) (unknown) (unknown) (no date) (unknown) (unknown) fluticasone propionate 220 1 puff inhalation BID 04/27/21 02/06/22 (units unknown) (unknown) (unknown) (no date) (unknown) (unknown) furosemide 20 mg tablet 20 mg PO DAILY 04/27/21 02/06/22 (units unknown) (unknown) (unknown) (no date) (unknown) (unknown) furosemide 20 mg tablet (units unknown) (unknown) (unknown) (no date) (unknown) (unknown) infection #22 grams (units unknown) (unknown) (unknown) (no date) (unknown) (unknown) l (units unknown) (unknown) (unknown) (no date) (unknown) (unknown) mcg/actuation HFA aerosol inhaler (units unknown) (unknown) (unknown) (no date) (unknown) (unknown) meloxicam 15 m g tablet 15 mg PO DAILY 04/27/21 02/06/22 (units unknown) (unknown) (unknown) (no date) (unknown) (unknown) meloxicam 15 m g tablet (units unknown) (unknown) (unknown) (no date) (unknown) (unknown) mupirocin 2 % ointment (units unknown) (unknown) (unknown) (no date) (unknown) (unknown) mupirocin 2 % topical ointment 1 applic topical BID nasal 02/06/22 (units unknown) (unknown) (unknown) (no date) (unknown) (unknown) potassium chlo ride 10 mEq 10 meq PO DAILY 04/27/21 02/06/22 (units unknown) (unknown) (unknown) (no date) (unknown) (unknown) potassium chlo ride 10 mEq capsule, extended release (units unknown) (unknown) (unknown) (no date) (unknown) (unknown) sertraline 100 mg tablet 100 mg PO DAILY 04/27/21 02/06/22 (units unknown) (unknown) (unknown) (no date) (unknown) (unknown) sertraline 100 mg tablet (units unknown) (unknown) (unknown) (no date) (unknown) (unknown) tobacco type: cigarettes (units unknown) (unknown) Result panel 122 (unknown) (no date) (unknown) (unknown) (no value) (units unknown) (unknown) (unknown) (no date) (unknown) (unknown) 10/07/22 (units unknown) (unknown) (unknown) (no date) (unknown) (unknown) 1. No acute intracranial abnormality. (units unknown) (unknown) (unknown) (no date) (unknown) (unknown) [facility] [address] [place] [address] (un its unknown) (unknown) (unknown) (no date) (unknown) (unknown) : [id number] (units unknown) (unknown) (unknown) (no date) (unknown) (unknown) Accession Numb er: [id number] (units unknown) (unknown) (unknown) (no date) (unknown) (unknown) Age/Sex: 27 / F Date of Service: (units unknown) (unknown) (unknown) (no date) (unknown) (unknown) [place] [address] (units unknown) (unknown) (unknown) (no date) (unknown) (unknown) Approved by: Brandyn Quiñonez M.D. on 10/07/2022 at 2:16 (units unknown) (unknown) (unknown) (no date) (unknown) (unknown) Brain: No intracranial hemorrhage, mass, or mass effect. Dior-white matter (units unknown) (unknown) (unknown) (no date) (unknown) (unknown) COMPARISON: None. (u nits unknown) (unknown) (unknown) (no date) (unknown) (unknown) CSF spaces: Ba layne cisterns are patent. No extra-axial fluid collections. (units unknown) (unknown) (unknown) (no date) (unknown) (unknown) CT Scan Report (unit s unknown) (unknown) (unknown) (no date) (unknown) (unknown) : 4 Acct:[id number] (units unknown) (unknown) (unknown) (no date) (unknown) (unknown) Dictated by: Brandyn Quiñonez M.D. on 10/07/2022 at 2:15 (units unknown) (unknown) (unknown) (no date) (unknown) (unknown) FINDINGS: (units unknown) (unknown) (unknown) (no date) (unknown) (unknown) IMPRESSION: (units unknown) (unknown) (unknown) (no date) (unknown) (unknown) INDICATIONS: seizure (units unknown) (unknown) (unknown) (no date) (unknown) (unknown) Image quality: Excellent. (units unknown) (unknown) (unknown) (no date) (unknown) (unknown) [facility] (uni ts unknown) (unknown) (unknown) (no date) (unknown) (unknown) Loc: ED (units unknown) (unknown) (unknown) (no date) (unknown) (unknown) Noncontrast 4. 5 mm thick angled axial sections acquired from the foramen magnum (units unknown) (unknown) (unknown) (no date) (unknown) (unknown) Ordering Provi gris: Regina Murguia D.O. (units unknown) (unknown) (unknown) (no date) (unknown) (unknown) PROCEDURE: CT HEAD/BRAIN WO CON (units unknown) (unknown) (unknown) (no date) (unknown) (unknown) Patient: Sabrina Hawkins MR# (units unknown) (unknown) (unknown) (no date) (unknown) (unknown) Procedure: CT head/brain wo con (units unknown) (unknown) (unknown) (no date) (unknown) (unknown) Signed (units unknown) (unknown) (unknown) (no date) (unknown) (unknown) Sinuses: Visua lized sinuses and mastoids are clear. (units unknown) (unknown) (unknown) (no date) (unknown) (unknown) Skull and face : Calvarium and visualized facial bones are intact, without (units unknown) (unknown) (unknown) (no date) (unknown) (unknown) TECHNIQUE: (units unknown) (unknown) (unknown) (no date) (unknown) (unknown) Ventricles (units unknown) (unknown) (unknown) (no date) (unknown) (unknown) appears preserved. ( units unknown) (unknown) (unknown) (no date) (unknown) (unknown) are normal in size and shape. (units unknown) (unknown) (unknown) (no date) (unknown) (unknown) following (units unknown) (unknown) (unknown) (no date) (unknown) (unknown) interface (units unknown) (unknown) (unknown) (no date) (unknown) (unknown) lesions. (units unknown) (unknown) (unknown) (no date) (unknown) (unknown) patient (units unknown) (unknown) (unknown) (no date) (unknown) (unknown) size. (units unknown) (unknown) (unknown) (no date) (unknown) (unknown) suspicious (units unknown) (unknown) (unknown) (no date) (unknown) (unknown) to the (units unknown) (unknown) (unknown) (no date) (unknown) (unknown) vertex, with coronal and sagittal reformats. For radiation dose reduction, the (units unknown) (unknown) (unknown) (no date) (unknown) (unknown) was used: auto mated exposure control, adjustment of mA and/or kV according to (units unknown) (unknown) Result panel 123 (unknown) (no date) (unknown) (unknown) 0 /ul (unknown ) (unknown) (no date) (unknown) (unknown) 0.5 % (unknown ) (unknown) (no date) (unknown) (unknown) 1.1 % (unknown ) (unknown) (no date) (unknown) (unknown) 100 /ul (unknown ) (unknown) (no date) (unknown) (unknown) 12.7 % (unknown ) (unknown) (no date) (unknown) (unknown) 13.0 g/dl (unknown ) (unknown) (no date) (unknown) (unknown) 1300 /ul (unknown ) (unknown) (no date) (unknown) (unknown) 14.4 % (unknown ) (unknown) (no date) (unknown) (unknown) 30.1 pg (unknown ) (unknown) (no date) (unknown) (unknown) 308 x10 3/ul (unknow n) (unknown) (no date) (unknown) (unknown) 34.2 % (unknown ) (unknown) (no date) (unknown) (unknown) 38.1 % (unknown ) (unknown) (no date) (unknown) (unknown) 4.32 x10 6/ul (unknow n) (unknown) (no date) (unknown) (unknown) 400 /ul (unknown ) (unknown) (no date) (unknown) (unknown) 5.0 % (unknown ) (unknown) (no date) (unknown) (unknown) 7000 /ul (unknown ) (unknown) (no date) (unknown) (unknown) 79.0 % (unknown ) (unknown) (no date) (unknown) (unknown) 8.8 x10 3/ul (unknow n) (unknown) (no date) (unknown) (unknown) 88.1 fl (unknown ) Result panel 124 (unknown) (no date) (unknown) (unknown) > 60 ml/min (unknown ) (unknown) (no date) (unknown) (unknown) > 60 ml/min (unknown ) (unknown) (no date) (unknown) (unknown) 0.3 mg/dl (unknown ) (unknown) (no date) (unknown) (unknown) 0.60 mg/dl (unknown ) (unknown) (no date) (unknown) (unknown) 1.2 (units unknown) (unknown) (unknown) (no date) (unknown) (unknown) 100 mmol/l (unknown ) (unknown) (no date) (unknown) (unknown) 13.3 (units unknown) (unknown) (unknown) (no date) (unknown) (unknown) 133 mmol/l (unknown ) (unknown) (no date) (unknown) (unknown) 16 mmol/l (unknown ) (unknown) (no date) (unknown) (unknown) 163 mg/dl (unknown ) (unknown) (no date) (unknown) (unknown) 163 mg/dl (unknown ) (unknown) (no date) (unknown) (unknown) 23 iu/l (unknown ) (unknown) (no date) (unknown) (unknown) 26 iu/l (unknown ) (unknown) (no date) (unknown) (unknown) 3.4 mmol/l (unknown ) (unknown) (no date) (unknown) (unknown) 3.5 g/dl (unknown ) (unknown) (no date) (unknown) (unknown) 4.2 g/dl (unknown ) (unknown) (no date) (unknown) (unknown) 66 u/l (unknown ) (unknown) (no date) (unknown) (unknown) 7.7 g/dl (unknown ) (unknown) (no date) (unknown) (unknown) 8 mg/dl (unknown ) (unknown) (no date) (unknown) (unknown) 8.3 mg/dl (unknown ) (unknown) (no date) (unknown) (unknown) 95 mg/dl (unknown ) (unknown) (no date) (unknown) (unknown) 95 mg/dl (unknown ) Result panel 125 (unknown) (no date) (unknown) (unknown) (no value) (units unknown) (unknown) (unknown) (no date) (unknown) (unknown) (Flovent HFA) (units unknown) (unknown) (unknown) (no date) (unknown) (unknown) 01:22 (units unknown) (unknown) (unknown) (no date) (unknown) (unknown) 10/07/22 01:23 (unit s unknown) (unknown) (unknown) (no date) (unknown) (unknown) 10/07/22 02:08 (unit s unknown) (unknown) (unknown) (no date) (unknown) (unknown) 10/07/22 (units unknown) (unknown) (unknown) (no date) (unknown) (unknown) 1 applic topic al BID Qty: 22 0RF (units unknown) (unknown) (unknown) (no date) (unknown) (unknown) 1 puff inhalat ion BID (units unknown) (unknown) (unknown) (no date) (unknown) (unknown) 10 meq PO DAILY (uni ts unknown) (unknown) (unknown) (no date) (unknown) (unknown) 100 mg PO BID PRN (Reason: cough) Qty: 20 0RF (units unknown) (unknown) (unknown) (no date) (unknown) (unknown) 100 mg PO DAILY (uni ts unknown) (unknown) (unknown) (no date) (unknown) (unknown) 15 mg PO DAILY (unit s unknown) (unknown) (unknown) (no date) (unknown) (unknown) 2 puff inhalat ion Q4-6H PRN (units unknown) (unknown) (unknown) (no date) (unknown) (unknown) 20 mg PO DAILY (unit s unknown) (unknown) (unknown) (no date) (unknown) (unknown) ABDOMEN: Soft, nontender. Normoactive bowel sounds all 4 quadrants. No (units unknown) (unknown) (unknown) (no date) (unknown) (unknown) Age/Sex: 27 / F (uni ts unknown) (unknown) (unknown) (no date) (unknown) (unknown) Allergies (units unknown) (unknown) (unknown) (no date) (unknown) (unknown) Allergy/AdvRea c Type Severity Reaction Status Date / Time (units unknown) (unknown) (unknown) (no date) (unknown) (unknown) Blood Pressure 135/65 10/07/22 01:22 (units unknown) (unknown) (unknown) (no date) (unknown) (unknown) Blood Pressure 135/65 (units unknown) (unknown) (unknown) (no date) (unknown) (unknown) CARDIOVASCULAR : Regular rate and rhythm without murmurs, rubs or gallops. (units unknown) (unknown) (unknown) (no date) (unknown) (unknown) CBC Auto Diff [Complete Blood Count AUTO DIFF] Stat (units unknown) (unknown) (unknown) (no date) (unknown) (unknown) CMP [Comprehen sive Metabolic Panel] Stat (units unknown) (unknown) (unknown) (no date) (unknown) (unknown) CT head/brain wo con Stat (units unknown) (unknown) (unknown) (no date) (unknown) (unknown) Chief Complain t: Seizure (units unknown) (unknown) (unknown) (no date) (unknown) (unknown) Course (units unknown) (unknown) (unknown) (no date) (unknown) (unknown) : 4 Acct:[id number] (units unknown) (unknown) (unknown) (no date) (unknown) (unknown) Date of Servic e: 10/07/22 (units unknown) (unknown) (unknown) (no date) (unknown) (unknown) Departure (units unknown) (unknown) (unknown) (no date) (unknown) (unknown) Discharge Plan (unit s unknown) (unknown) (unknown) (no date) (unknown) (unknown) ED Orders (units unknown) (unknown) (unknown) (no date) (unknown) (unknown) ER Physician: Regina Murguia D.O. (units unknown) (unknown) (unknown) (no date) (unknown) (unknown) ETOH [Ethanol (ETOH)] Stat (units unknown) (unknown) (unknown) (no date) (unknown) (unknown) EXTREMITIES: N ormal range of motion, no clubbing or edema. Neurovascularly (units unknown) (unknown) (unknown) (no date) (unknown) (unknown) Emergency Report (un its unknown) (unknown) (unknown) (no date) (unknown) (unknown) Eustachian tub e dysfunction (units unknown) (unknown) (unknown) (no date) (unknown) (unknown) Exam (units unknown) (unknown) (unknown) (no date) (unknown) (unknown) Flovent HFA 22 0 mcg/actuation HFA aerosol inhaler (units unknown) (unknown) (unknown) (no date) (unknown) (unknown) GENERAL: Intoxicated 27-year-old female (units unknown) (unknown) (unknown) (no date) (unknown) (unknown) General (units unknown) (unknown) (unknown) (no date) (unknown) (unknown) HEENT: Head atraumatic,EOMI, pupils reactive, face symmetric, [moist] mucous (units unknown) (unknown) (unknown) (no date) (unknown) (unknown) HPI - Seizure (units unknown) (unknown) (unknown) (no date) (unknown) (unknown) HPI Narrative: (unit s unknown) (unknown) (unknown) (no date) (unknown) (unknown) History of Pre sent Illness (units unknown) (unknown) (unknown) (no date) (unknown) (unknown) Home Medications (un its unknown) (unknown) (unknown) (no date) (unknown) (unknown) Initial Vital Signs (units unknown) (unknown) (unknown) (no date) (unknown) (unknown) Initial Vital Signs: (units unknown) (unknown) (unknown) (no date) (unknown) (unknown) [address] [address] (units unknown) (unknown) (unknown) (no date) (unknown) (unknown) Lab Data (units unknown) (unknown) (unknown) (no date) (unknown) (unknown) [id number] (units unknown) (unknown) (unknown) (no date) (unknown) (unknown) MDM - Seizure (units unknown) (unknown) (unknown) (no date) (unknown) (unknown) MDM Narrative (units unknown) (unknown) (unknown) (no date) (unknown) (unknown) Medical Histor y (units unknown) (unknown) (unknown) (no date) (unknown) (unknown) Medical decisi on making narrative: (units unknown) (unknown) (unknown) (no date) (unknown) (unknown) Medication Instructions Recorded Confirmed (units unknown) (unknown) (unknown) (no date) (unknown) (unknown) Medication Instructions Recorded (units unknown) (unknown) (unknown) (no date) (unknown) (unknown) Manjit Gage MD [Primary Care Provider] (units unknown) (unknown) (unknown) (no date) (unknown) (unknown) NEUROLOGICAL: Alert oriented to person slurred speech moving all extremities (units unknown) (unknown) (unknown) (no date) (unknown) (unknown) No Action (units unknown) (unknown) (unknown) (no date) (unknown) (unknown) Ordered: (units unknown) (unknown) (unknown) (no date) (unknown) (unknown) Orders (units unknown) (unknown) (unknown) (no date) (unknown) (unknown) Oxygen Deliver y Method Room Air 10/07/22 01:22 (units unknown) (unknown) (unknown) (no date) (unknown) (unknown) Oxygen Deliver y Method Room Air (units unknown) (unknown) (unknown) (no date) (unknown) (unknown) Patient 27-yea r-old female history of stress-induced seizures called to bedside (units unknown) (unknown) (unknown) (no date) (unknown) (unknown) Patient History (uni ts unknown) (unknown) (unknown) (no date) (unknown) (unknown) Patient is a 27-year-old female with history of stress-induced seizures (units unknown) (unknown) (unknown) (no date) (unknown) (unknown) Patient: Sabrina Hawkins MR#: (units unknown) (unknown) (unknown) (no date) (unknown) (unknown) Penicillins Al lergy Severe anaphylaxis Verified 02/06/22 16:40 (units unknown) (unknown) (unknown) (no date) (unknown) (unknown) Prescriptions: (unit s unknown) (unknown) (unknown) (no date) (unknown) (unknown) Previous Rx's (units unknown) (unknown) (unknown) (no date) (unknown) (unknown) Prolactin Stat (unit s unknown) (unknown) (unknown) (no date) (unknown) (unknown) Pulse Oximetry 98 10/07/22 01:22 (units unknown) (unknown) (unknown) (no date) (unknown) (unknown) Pulse Oximetry 98 (u nits unknown) (unknown) (unknown) (no date) (unknown) (unknown) Pulse Rate 105 H 10/07/22 01:22 (units unknown) (unknown) (unknown) (no date) (unknown) (unknown) Pulse Rate 105 H (un its unknown) (unknown) (unknown) (no date) (unknown) (unknown) RESPIRATORY: B reath sounds equal bilaterally, no wheezes rales or rhonchi. (units unknown) (unknown) (unknown) (no date) (unknown) (unknown) ROS Unobtainab le: All systems reviewed + are unremarkable except as noted in HPI (units unknown) (unknown) (unknown) (no date) (unknown) (unknown) Referrals: (units unknown) (unknown) (unknown) (no date) (unknown) (unknown) Related Data (units unknown) (unknown) (unknown) (no date) (unknown) (unknown) Respiratory Ra te 16 10/07/22 01:22 (units unknown) (unknown) (unknown) (no date) (unknown) (unknown) Respiratory Rate 16 (units unknown) (unknown) (unknown) (no date) (unknown) (unknown) Review of Systems (u nits unknown) (unknown) (unknown) (no date) (unknown) (unknown) SKIN: Warm, dr y, no laceration, no petechiae, no rashes or lesions. (units unknown) (unknown) (unknown) (no date) (unknown) (unknown) Signed By: (units unknown) (unknown) (unknown) (no date) (unknown) (unknown) Smoking Status : Current every day smoker (units unknown) (unknown) (unknown) (no date) (unknown) (unknown) Social History (units unknown) (unknown) (unknown) (no date) (unknown) (unknown) Stated Complai nt: Seizure (units unknown) (unknown) (unknown) (no date) (unknown) (unknown) Substance Use Type: does not use (units unknown) (unknown) (unknown) (no date) (unknown) (unknown) Time Seen by Provider: 10/07/22 01:21 (units unknown) (unknown) (unknown) (no date) (unknown) (unknown) Urine Drug Scr een, Rapid Stat (units unknown) (unknown) (unknown) (no date) (unknown) (unknown) Vital Signs - 8 hr ( units unknown) (unknown) (unknown) (no date) (unknown) (unknown) Vital Signs (units unknown) (unknown) (unknown) (no date) (unknown) (unknown) Vital signs: (units unknown) (unknown) (unknown) (no date) (unknown) (unknown) [Embedded Imag e Not Available] (units unknown) (unknown) (unknown) (no date) (unknown) (unknown) aerosol inhaler (uni ts unknown) (unknown) (unknown) (no date) (unknown) (unknown) albuterol sulf ate 90 mcg/actuation 2 puff inhalation Q4-6H PRN 04/27/21 02/06/22 (units unknown) (unknown) (unknown) (no date) (unknown) (unknown) albuterol sulf ate 90 mcg/actuation HFA aerosol inhaler (units unknown) (unknown) (unknown) (no date) (unknown) (unknown) alcohol intake frequency: a few times a week (units unknown) (unknown) (unknown) (no date) (unknown) (unknown) and below (units unknown) (unknown) (unknown) (no date) (unknown) (unknown) and was incidentally talking. Suspect pseudoseizures (units unknown) (unknown) (unknown) (no date) (unknown) (unknown) behavior and s he was given 5 mg of Versed. She was at the [facility] (units unknown) (unknown) (unknown) (no date) (unknown) (unknown) benzonatate 10 0 mg capsule 100 mg PO BID PRN cough #20 caps 08/31/22 (units unknown) (unknown) (unknown) (no date) (unknown) (unknown) benzonatate 10 0 mg capsule (units unknown) (unknown) (unknown) (no date) (unknown) (unknown) capsule,extend ed release (units unknown) (unknown) (unknown) (no date) (unknown) (unknown) ciprofloxacin Allergy Severe Anaphylaxis Verified 02/06/22 16:40 (units unknown) (unknown) (unknown) (no date) (unknown) (unknown) drinking alcoh ol she reports she had drinks. Shaina reports multiple seizures. (units unknown) (unknown) (unknown) (no date) (unknown) (unknown) duloxetine Adv Reac Severe neurologica Verified 02/06/22 16:40 (units unknown) (unknown) (unknown) (no date) (unknown) (unknown) fluticasone propionate 220 1 puff inhalation BID 04/27/21 02/06/22 (units unknown) (unknown) (unknown) (no date) (unknown) (unknown) for seizure. Abnormal seizure shaking quickly stops push herself up on the bed (units unknown) (unknown) (unknown) (no date) (unknown) (unknown) furosemide 20 mg tablet 20 mg PO DAILY 04/27/21 02/06/22 (units unknown) (unknown) (unknown) (no date) (unknown) (unknown) furosemide 20 mg tablet (units unknown) (unknown) (unknown) (no date) (unknown) (unknown) guarding or rebound. (units unknown) (unknown) (unknown) (no date) (unknown) (unknown) infection #22 grams (units unknown) (unknown) (unknown) (no date) (unknown) (unknown) intact (units unknown) (unknown) (unknown) (no date) (unknown) (unknown) l (units unknown) (unknown) (unknown) (no date) (unknown) (unknown) mcg/actuation HFA aerosol inhaler (units unknown) (unknown) (unknown) (no date) (unknown) (unknown) meloxicam 15 m g tablet 15 mg PO DAILY 04/27/21 02/06/22 (units unknown) (unknown) (unknown) (no date) (unknown) (unknown) meloxicam 15 m g tablet (units unknown) (unknown) (unknown) (no date) (unknown) (unknown) membranes (units unknown) (unknown) (unknown) (no date) (unknown) (unknown) mupirocin 2 % ointment (units unknown) (unknown) (unknown) (no date) (unknown) (unknown) mupirocin 2 % topical ointment 1 applic topical BID nasal 02/06/22 (units unknown) (unknown) (unknown) (no date) (unknown) (unknown) potassium chlo ride 10 mEq 10 meq PO DAILY 04/27/21 02/06/22 (units unknown) (unknown) (unknown) (no date) (unknown) (unknown) potassium chlo ride 10 mEq capsule, extended release (units unknown) (unknown) (unknown) (no date) (unknown) (unknown) presenting tod ay with multiple seizures. EMS witnessed full body on shaking (units unknown) (unknown) (unknown) (no date) (unknown) (unknown) sertraline 100 mg tablet 100 mg PO DAILY 04/27/21 02/06/22 (units unknown) (unknown) (unknown) (no date) (unknown) (unknown) sertraline 100 mg tablet (units unknown) (unknown) (unknown) (no date) (unknown) (unknown) tobacco type: cigarettes (units unknown) (unknown) Result panel 126 (unknown) (no date) (unknown) (unknown) > 60 ml/min (unknown ) (unknown) (no date) (unknown) (unknown) > 60 ml/min (unknown ) (unknown) (no date) (unknown) (unknown) 0.3 mg/dl (unknown ) (unknown) (no date) (unknown) (unknown) 0.60 mg/dl (unknown ) (unknown) (no date) (unknown) (unknown) 1.2 (units unknown) (unknown) (unknown) (no date) (unknown) (unknown) 100 mmol/l (unknown ) (unknown) (no date) (unknown) (unknown) 13.3 (units unknown) (unknown) (unknown) (no date) (unknown) (unknown) 133 mmol/l (unknown ) (unknown) (no date) (unknown) (unknown) 16 mmol/l (unknown ) (unknown) (no date) (unknown) (unknown) 163 mg/dl (unknown ) (unknown) (no date) (unknown) (unknown) 163 mg/dl (unknown ) (unknown) (no date) (unknown) (unknown) 23 iu/l (unknown ) (unknown) (no date) (unknown) (unknown) 26 iu/l (unknown ) (unknown) (no date) (unknown) (unknown) 3.4 mmol/l (unknown ) (unknown) (no date) (unknown) (unknown) 3.5 g/dl (unknown ) (unknown) (no date) (unknown) (unknown) 4.2 g/dl (unknown ) (unknown) (no date) (unknown) (unknown) 65.7 ng/ml (unknown ) (unknown) (no date) (unknown) (unknown) 66 u/l (unknown ) (unknown) (no date) (unknown) (unknown) 7.7 g/dl (unknown ) (unknown) (no date) (unknown) (unknown) 8 mg/dl (unknown ) (unknown) (no date) (unknown) (unknown) 8.3 mg/dl (unknown ) (unknown) (no date) (unknown) (unknown) 95 mg/dl (unknown ) (unknown) (no date) (unknown) (unknown) 95 mg/dl (unknown ) Result panel 127 (unknown) (no date) (unknown) (unknown) (no value) (units unknown) (unknown) (unknown) (no date) (unknown) (unknown) (Flovent HFA) (units unknown) (unknown) (unknown) (no date) (unknown) (unknown) *Continue to t rodney medications as directed (units unknown) (unknown) (unknown) (no date) (unknown) (unknown) *Follow up wit h your primary care provider in 2-3 days or call [phone] (units unknown) (unknown) (unknown) (no date) (unknown) (unknown) *Return to ER if you should have recurrent seizure increased confusion or any (units unknown) (unknown) (unknown) (no date) (unknown) (unknown) *What to do: A t this time you can not drive until seen by neurology or for 6 (units unknown) (unknown) (unknown) (no date) (unknown) (unknown) *You have been diagnosed with nonepileptic seizures (units unknown) (unknown) (unknown) (no date) (unknown) (unknown) 01:22 10/07/22 (unit s unknown) (unknown) (unknown) (no date) (unknown) (unknown) 01:31 10/07/22 (unit s unknown) (unknown) (unknown) (no date) (unknown) (unknown) 01:31 (units unknown) (unknown) (unknown) (no date) (unknown) (unknown) 02:00 10/07/22 (unit s unknown) (unknown) (unknown) (no date) (unknown) (unknown) 02:08 02:08 (units unknown) (unknown) (unknown) (no date) (unknown) (unknown) 02:09 10/07/22 (unit s unknown) (unknown) (unknown) (no date) (unknown) (unknown) 02:09 (units unknown) (unknown) (unknown) (no date) (unknown) (unknown) 02:30 10/07/22 (unit s unknown) (unknown) (unknown) (no date) (unknown) (unknown) 10/07/22 01:23 (unit s unknown) (unknown) (unknown) (no date) (unknown) (unknown) 10/07/22 02:08 (unit s unknown) (unknown) (unknown) (no date) (unknown) (unknown) 10/07/2210/07 Range/Units (units unknown) (unknown) (unknown) (no date) (unknown) (unknown) 10/07/22 (units unknown) (unknown) (unknown) (no date) (unknown) (unknown) 03:00 10/07/22 (unit s unknown) (unknown) (unknown) (no date) (unknown) (unknown) 03:30 (units unknown) (unknown) (unknown) (no date) (unknown) (unknown) 04:00 10/07/22 (unit s unknown) (unknown) (unknown) (no date) (unknown) (unknown) 04:30 10/07/22 (unit s unknown) (unknown) (unknown) (no date) (unknown) (unknown) 05:00 (units unknown) (unknown) (unknown) (no date) (unknown) (unknown) 05:30 10/07/22 (unit s unknown) (unknown) (unknown) (no date) (unknown) (unknown) 05:55 10/07/22 (unit s unknown) (unknown) (unknown) (no date) (unknown) (unknown) 05:56 (units unknown) (unknown) (unknown) (no date) (unknown) (unknown) 1 applic topic al BID Qty: 22 0RF (units unknown) (unknown) (unknown) (no date) (unknown) (unknown) 1 puff inhalat ion BID (units unknown) (unknown) (unknown) (no date) (unknown) (unknown) 1. No acute intracranial abnormality. (units unknown) (unknown) (unknown) (no date) (unknown) (unknown) 10 meq PO DAILY (uni ts unknown) (unknown) (unknown) (no date) (unknown) (unknown) 100 mg PO BID PRN (Reason: cough) Qty: 20 0RF (units unknown) (unknown) (unknown) (no date) (unknown) (unknown) 100 mg PO DAILY (uni ts unknown) (unknown) (unknown) (no date) (unknown) (unknown) 15 mg PO DAILY (unit s unknown) (unknown) (unknown) (no date) (unknown) (unknown) 2 puff inhalat ion Q4-6H PRN (units unknown) (unknown) (unknown) (no date) (unknown) (unknown) 20 mg PO DAILY (unit s unknown) (unknown) (unknown) (no date) (unknown) (unknown) 6:00 a.m.. Pat ient awake alert much better. She reports that she is been under (units unknown) (unknown) (unknown) (no date) (unknown) (unknown) ? (units unknown) (unknown) (unknown) (no date) (unknown) (unknown) ABDOMEN: Soft, nontender. Normoactive bowel sounds all 4 quadrants. No (units unknown) (unknown) (unknown) (no date) (unknown) (unknown) ALT 23 (<35) IU/L (u nits unknown) (unknown) (unknown) (no date) (unknown) (unknown) AST 26 (14-36) IU/L (units unknown) (unknown) (unknown) (no date) (unknown) (unknown) Activity Restrictions/Additi onal Instructions: (units unknown) (unknown) (unknown) (no date) (unknown) (unknown) Age/Sex: 27 / F (uni ts unknown) (unknown) (unknown) (no date) (unknown) (unknown) Albumin 4.2 (3.5-5.0) g/dL (units unknown) (unknown) (unknown) (no date) (unknown) (unknown) Albumin/Globul in Ratio 1.2 (1.0-2.8) (units unknown) (unknown) (unknown) (no date) (unknown) (unknown) Alkaline Phosphatase 66 (38-126) U/L (units unknown) (unknown) (unknown) (no date) (unknown) (unknown) Allergies (units unknown) (unknown) (unknown) (no date) (unknown) (unknown) Allergy/AdvRea c Type Severity Reaction Status Date / Time (units unknown) (unknown) (unknown) (no date) (unknown) (unknown) At this time n o reason to start antiepileptic medication. (units unknown) (unknown) (unknown) (no date) (unknown) (unknown) BUN 8 (7-17) mg/dL ( units unknown) (unknown) (unknown) (no date) (unknown) (unknown) BUN/Creatinine Ratio 13.3 (6-22) (units unknown) (unknown) (unknown) (no date) (unknown) (unknown) Baso # (Auto) 0 (0-100) /uL (units unknown) (unknown) (unknown) (no date) (unknown) (unknown) Baso % (Auto) 0.5 (0-2) % (units unknown) (unknown) (unknown) (no date) (unknown) (unknown) Blood Pressure 111/60 (units unknown) (unknown) (unknown) (no date) (unknown) (unknown) Blood Pressure 115/61 (units unknown) (unknown) (unknown) (no date) (unknown) (unknown) Blood Pressure 115/62 (units unknown) (unknown) (unknown) (no date) (unknown) (unknown) Blood Pressure 116/60 (units unknown) (unknown) (unknown) (no date) (unknown) (unknown) Blood Pressure 135/65 10/07/23 01:22 (units unknown) (unknown) (unknown) (no date) (unknown) (unknown) Blood Pressure 135/65 115/60 (units unknown) (unknown) (unknown) (no date) (unknown) (unknown) Blood work is reviewed she is found to be intoxicated 163. Bicarb is 16 and (units unknown) (unknown) (unknown) (no date) (unknown) (unknown) Brain:? No intracranial hemorrhage, mass, or mass effect.? Dior-white matter (units unknown) (unknown) (unknown) (no date) (unknown) (unknown) CARDIOVASCULAR : Regular rate and rhythm without murmurs, rubs or gallops. (units unknown) (unknown) (unknown) (no date) (unknown) (unknown) CBC Auto Diff [Complete Blood Count AUTO DIFF] Stat (units unknown) (unknown) (unknown) (no date) (unknown) (unknown) CMP [Comprehen sive Metabolic Panel] Stat (units unknown) (unknown) (unknown) (no date) (unknown) (unknown) COMPARISON:? None. ( units unknown) (unknown) (unknown) (no date) (unknown) (unknown) CSF spaces:? B malini cisterns are patent.? No extra-axial fluid collections.? (units unknown) (unknown) (unknown) (no date) (unknown) (unknown) CT head/brain wo con Stat (units unknown) (unknown) (unknown) (no date) (unknown) (unknown) CT scan - head: (uni ts unknown) (unknown) (unknown) (no date) (unknown) (unknown) Calcium 8.3 L (8.4-10.2) mg/dL (units unknown) (unknown) (unknown) (no date) (unknown) (unknown) Carbon Dioxide 16 L (22-32) mmol/L (units unknown) (unknown) (unknown) (no date) (unknown) (unknown) Chief Complain t: Seizure (units unknown) (unknown) (unknown) (no date) (unknown) (unknown) Chloride 100 (98-107) mmol/L (units unknown) (unknown) (unknown) (no date) (unknown) (unknown) Clinical Impression: (units unknown) (unknown) (unknown) (no date) (unknown) (unknown) Course (units unknown) (unknown) (unknown) (no date) (unknown) (unknown) Creatinine 0.6 0 (0.52-1.04) mg/dL (units unknown) (unknown) (unknown) (no date) (unknown) (unknown) : 4 Acct:[id number] (units unknown) (unknown) (unknown) (no date) (unknown) (unknown) Date of Servic e: 10/07/22 (units unknown) (unknown) (unknown) (no date) (unknown) (unknown) Departure (units unknown) (unknown) (unknown) (no date) (unknown) (unknown) Dictated by: Brandyn Quiñonez M.D. on 10/07/2022 at 2:15 ? ? (units unknown) (unknown) (unknown) (no date) (unknown) (unknown) Discharge Plan (unit s unknown) (unknown) (unknown) (no date) (unknown) (unknown) ED Orders (units unknown) (unknown) (unknown) (no date) (unknown) (unknown) ER Physician: Regina Murguia D.O. (units unknown) (unknown) (unknown) (no date) (unknown) (unknown) ETOH [Ethanol (ETOH)] Stat (units unknown) (unknown) (unknown) (no date) (unknown) (unknown) EXTREMITIES: N ormal range of motion, no clubbing or edema. Neurovascularly (units unknown) (unknown) (unknown) (no date) (unknown) (unknown) Emergency Report (un its unknown) (unknown) (unknown) (no date) (unknown) (unknown) Eos # (Auto) 1 00 (0-450) /uL (units unknown) (unknown) (unknown) (no date) (unknown) (unknown) Eos % (Auto) 1 .1 L (2-4) % (units unknown) (unknown) (unknown) (no date) (unknown) (unknown) Estimated GFR > 60 (>60) mL/min (units unknown) (unknown) (unknown) (no date) (unknown) (unknown) Ethyl Alcohol 163 H ( - 10) mg/dL (units unknown) (unknown) (unknown) (no date) (unknown) (unknown) Eustachian tub e dysfunction (units unknown) (unknown) (unknown) (no date) (unknown) (unknown) Exam (units unknown) (unknown) (unknown) (no date) (unknown) (unknown) FINDINGS:? (units unknown) (unknown) (unknown) (no date) (unknown) (unknown) Flovent HFA 22 0 mcg/actuation HFA aerosol inhaler (units unknown) (unknown) (unknown) (no date) (unknown) (unknown) GENERAL: Intoxicated 27-year-old female (units unknown) (unknown) (unknown) (no date) (unknown) (unknown) General (units unknown) (unknown) (unknown) (no date) (unknown) (unknown) Globulin 3.5 (1.7-4.1) g/dL (units unknown) (unknown) (unknown) (no date) (unknown) (unknown) Glucose 95 (70 -100) mg/dL (units unknown) (unknown) (unknown) (no date) (unknown) (unknown) HEENT: Head atraumatic,EOMI, pupils reactive, face symmetric, [moist] mucous (units unknown) (unknown) (unknown) (no date) (unknown) (unknown) HPI - Seizure (units unknown) (unknown) (unknown) (no date) (unknown) (unknown) HPI Narrative: (unit s unknown) (unknown) (unknown) (no date) (unknown) (unknown) Hct 38.1 (36-46) % ( units unknown) (unknown) (unknown) (no date) (unknown) (unknown) Hgb 13.0 (12.0-16.0) g/dL (units unknown) (unknown) (unknown) (no date) (unknown) (unknown) History of Pre sent Illness (units unknown) (unknown) (unknown) (no date) (unknown) (unknown) Home Medications (un its unknown) (unknown) (unknown) (no date) (unknown) (unknown) IMPRESSION:? (units unknown) (unknown) (unknown) (no date) (unknown) (unknown) INDICATIONS:? seizure (units unknown) (unknown) (unknown) (no date) (unknown) (unknown) Image quality: ? Excellent.? (units unknown) (unknown) (unknown) (no date) (unknown) (unknown) Imaging Data (units unknown) (unknown) (unknown) (no date) (unknown) (unknown) Initial Vital Signs (units unknown) (unknown) (unknown) (no date) (unknown) (unknown) Initial Vital Signs: (units unknown) (unknown) (unknown) (no date) (unknown) (unknown) Instructions: DI for Seizure (Not Epilepsy/Seizure Disorder) (units unknown) (unknown) (unknown) (no date) (unknown) (unknown) [address] [address] (units unknown) (unknown) (unknown) (no date) (unknown) (unknown) Lab Data (units unknown) (unknown) (unknown) (no date) (unknown) (unknown) Lab Results (units unknown) (unknown) (unknown) (no date) (unknown) (unknown) Labs: (units unknown) (unknown) (unknown) (no date) (unknown) (unknown) Lymph # (Auto) 1300 (1741-5225) /uL (units unknown) (unknown) (unknown) (no date) (unknown) (unknown) Lymph % (Auto) 14.4 L (25-40) % (units unknown) (unknown) (unknown) (no date) (unknown) (unknown) [id number] (units unknown) (unknown) (unknown) (no date) (unknown) (unknown) MCH 30.1 (26-34) PG (units unknown) (unknown) (unknown) (no date) (unknown) (unknown) MCHC 34.2 (30-36) % (units unknown) (unknown) (unknown) (no date) (unknown) (unknown) MCV 88.1 (80-1 00) fL (units unknown) (unknown) (unknown) (no date) (unknown) (unknown) MDM - Seizure (units unknown) (unknown) (unknown) (no date) (unknown) (unknown) MDM Narrative (units unknown) (unknown) (unknown) (no date) (unknown) (unknown) Medical Histor y (units unknown) (unknown) (unknown) (no date) (unknown) (unknown) Medical decisi on making narrative: (units unknown) (unknown) (unknown) (no date) (unknown) (unknown) Medication Instructions Recorded Confirmed (units unknown) (unknown) (unknown) (no date) (unknown) (unknown) Medication Instructions Recorded (units unknown) (unknown) (unknown) (no date) (unknown) (unknown) Miscellaneous, Manjit shepherd MD [Primary Care Provider] (units unknown) (unknown) (unknown) (no date) (unknown) (unknown) Yates # (Auto) 400 (0-900) /uL (units unknown) (unknown) (unknown) (no date) (unknown) (unknown) Yates % (Auto) 5.0 (3-14) % (units unknown) (unknown) (unknown) (no date) (unknown) (unknown) NEUROLOGICAL: Alert oriented to person slurred speech moving all extremities (units unknown) (unknown) (unknown) (no date) (unknown) (unknown) Neut # (Auto) 7000 (3595-3066) /uL (units unknown) (unknown) (unknown) (no date) (unknown) (unknown) Neut % (Auto) 79.0 H (50-75) % (units unknown) (unknown) (unknown) (no date) (unknown) (unknown) No Action (units unknown) (unknown) (unknown) (no date) (unknown) (unknown) Noncontrast 4. 5 mm thick angled axial sections acquired from the foramen magnum (units unknown) (unknown) (unknown) (no date) (unknown) (unknown) Ordered: (units unknown) (unknown) (unknown) (no date) (unknown) (unknown) Orders (units unknown) (unknown) (unknown) (no date) (unknown) (unknown) Oxygen Deliver y Method Room Air 10/07/22 01:22 (units unknown) (unknown) (unknown) (no date) (unknown) (unknown) Oxygen Deliver y Method Room Air (units unknown) (unknown) (unknown) (no date) (unknown) (unknown) Oxygen Deliver y Method (units unknown) (unknown) (unknown) (no date) (unknown) (unknown) PROCEDURE:? CT HEAD/BRAIN WO CON (units unknown) (unknown) (unknown) (no date) (unknown) (unknown) Patient 27-yea r-old female history of stress-induced seizures called to bedside (units unknown) (unknown) (unknown) (no date) (unknown) (unknown) Patient Disposition: Home (units unknown) (unknown) (unknown) (no date) (unknown) (unknown) Patient History (uni ts unknown) (unknown) (unknown) (no date) (unknown) (unknown) Patient is a 27-year-old female with history of stress-induced seizures (units unknown) (unknown) (unknown) (no date) (unknown) (unknown) Patient: Sabrina Hawkins MR#: (units unknown) (unknown) (unknown) (no date) (unknown) (unknown) Penicillins Al beata Severe anaphylaxis Verified 02/06/22 16:40 (units unknown) (unknown) (unknown) (no date) (unknown) (unknown) Plt Count 308 (150-400) X103/uL (units unknown) (unknown) (unknown) (no date) (unknown) (unknown) Potassium 3.4 (3.4-5.1) mmol/L (units unknown) (unknown) (unknown) (no date) (unknown) (unknown) Prescriptions: (unit s unknown) (unknown) (unknown) (no date) (unknown) (unknown) Previous Rx's (units unknown) (unknown) (unknown) (no date) (unknown) (unknown) Prolactin 65.7 H (3.0-18.6) ng/mL (units unknown) (unknown) (unknown) (no date) (unknown) (unknown) Prolactin Stat (unit s unknown) (unknown) (unknown) (no date) (unknown) (unknown) Psychogenic nonepileptic seizure (units unknown) (unknown) (unknown) (no date) (unknown) (unknown) Pulse Oximetry 100 98 97 (units unknown) (unknown) (unknown) (no date) (unknown) (unknown) Pulse Oximetry 97 98 99 (units unknown) (unknown) (unknown) (no date) (unknown) (unknown) Pulse Oximetry 98 10/07/22 01:22 (units unknown) (unknown) (unknown) (no date) (unknown) (unknown) Pulse Oximetry 98 100 (units unknown) (unknown) (unknown) (no date) (unknown) (unknown) Pulse Oximetry 99 100 (units unknown) (unknown) (unknown) (no date) (unknown) (unknown) Pulse Oximetry 99 98 (units unknown) (unknown) (unknown) (no date) (unknown) (unknown) Pulse Rate 105 H 10/07/22 01:22 (units unknown) (unknown) (unknown) (no date) (unknown) (unknown) Pulse Rate 105 H 97 H (units unknown) (unknown) (unknown) (no date) (unknown) (unknown) Pulse Rate 116 H 98 H (units unknown) (unknown) (unknown) (no date) (unknown) (unknown) Pulse Rate 72 78 (un its unknown) (unknown) (unknown) (no date) (unknown) (unknown) Pulse Rate 80 78 73 (units unknown) (unknown) (unknown) (no date) (unknown) (unknown) Pulse Rate 90 81 82 (units unknown) (unknown) (unknown) (no date) (unknown) (unknown) RBC 4.32 (4.0- 5.2) X106/uL (units unknown) (unknown) (unknown) (no date) (unknown) (unknown) RDW 12.7 (11.6-14.8) % (units unknown) (unknown) (unknown) (no date) (unknown) (unknown) RESPIRATORY: B reath sounds equal bilaterally, no wheezes rales or rhonchi. (units unknown) (unknown) (unknown) (no date) (unknown) (unknown) ROS Unobtainab le: All systems reviewed + are unremarkable except as noted in HPI (units unknown) (unknown) (unknown) (no date) (unknown) (unknown) Radiologist's Impression: (units unknown) (unknown) (unknown) (no date) (unknown) (unknown) Referrals: (units unknown) (unknown) (unknown) (no date) (unknown) (unknown) Related Data (units unknown) (unknown) (unknown) (no date) (unknown) (unknown) Respiratory Ra te 16 10/07/22 01:22 (units unknown) (unknown) (unknown) (no date) (unknown) (unknown) Respiratory Rate 16 (units unknown) (unknown) (unknown) (no date) (unknown) (unknown) Respiratory Rate (un its unknown) (unknown) (unknown) (no date) (unknown) (unknown) Review of Systems (u nits unknown) (unknown) (unknown) (no date) (unknown) (unknown) SKIN: Warm, dr y, no laceration, no petechiae, no rashes or lesions. (units unknown) (unknown) (unknown) (no date) (unknown) (unknown) Signed By: (units unknown) (unknown) (unknown) (no date) (unknown) (unknown) Sinuses:? Visualized sinuses and mastoids are clear.? (units unknown) (unknown) (unknown) (no date) (unknown) (unknown) Skull and face :? Calvarium and visualized facial bones are intact, without (units unknown) (unknown) (unknown) (no date) (unknown) (unknown) Smoking Status : Current every day smoker (units unknown) (unknown) (unknown) (no date) (unknown) (unknown) Social History (units unknown) (unknown) (unknown) (no date) (unknown) (unknown) Sodium 133 L (137-145) mmol/L (units unknown) (unknown) (unknown) (no date) (unknown) (unknown) Stand Alone Fo betina: Patient Portal/API (units unknown) (unknown) (unknown) (no date) (unknown) (unknown) Stated Complai nt: Seizure (units unknown) (unknown) (unknown) (no date) (unknown) (unknown) Substance Use Type: does not use (units unknown) (unknown) (unknown) (no date) (unknown) (unknown) TECHNIQUE:? (units unknown) (unknown) (unknown) (no date) (unknown) (unknown) Time Seen by Provider: 10/07/22 01:21 (units unknown) (unknown) (unknown) (no date) (unknown) (unknown) Total Bilirubi n 0.3 (0.2-1.3) mg/dL (units unknown) (unknown) (unknown) (no date) (unknown) (unknown) Total Protein 7.7 (6.3-8.2) g/dL (units unknown) (unknown) (unknown) (no date) (unknown) (unknown) Urine Drug Scr een, Rapid Stat (units unknown) (unknown) (unknown) (no date) (unknown) (unknown) Ventricles (units unknown) (unknown) (unknown) (no date) (unknown) (unknown) Vital Signs - 8 hr ( units unknown) (unknown) (unknown) (no date) (unknown) (unknown) Vital Signs (units unknown) (unknown) (unknown) (no date) (unknown) (unknown) Vital signs: (units unknown) (unknown) (unknown) (no date) (unknown) (unknown) WBC 8.8 (4.5-1 1.0) X103/uL (units unknown) (unknown) (unknown) (no date) (unknown) (unknown) [Embedded Imag e Not Available] (units unknown) (unknown) (unknown) (no date) (unknown) (unknown) a lot of stres s she went drinking which she normally does not. He says that (units unknown) (unknown) (unknown) (no date) (unknown) (unknown) activity that I witnessed and what EMS reports my suspicion is low. Other (units unknown) (unknown) (unknown) (no date) (unknown) (unknown) aerosol inhaler (uni ts unknown) (unknown) (unknown) (no date) (unknown) (unknown) albuterol sulf ate 90 mcg/actuation 2 puff inhalation Q4-6H PRN 04/27/21 02/06/22 (units unknown) (unknown) (unknown) (no date) (unknown) (unknown) albuterol sulf ate 90 mcg/actuation HFA aerosol inhaler (units unknown) (unknown) (unknown) (no date) (unknown) (unknown) alcohol intake frequency: a few times a week (units unknown) (unknown) (unknown) (no date) (unknown) (unknown) and below (units unknown) (unknown) (unknown) (no date) (unknown) (unknown) and was incidentally talking. Suspect pseudoseizures. (units unknown) (unknown) (unknown) (no date) (unknown) (unknown) appears preserved.? (units unknown) (unknown) (unknown) (no date) (unknown) (unknown) are normal in size and shape.? (units unknown) (unknown) (unknown) (no date) (unknown) (unknown) behavior and s he was given 5 mg of Versed. She was at the [facility] (units unknown) (unknown) (unknown) (no date) (unknown) (unknown) benzonatate 10 0 mg capsule 100 mg PO BID PRN cough #20 caps 08/31/22 (units unknown) (unknown) (unknown) (no date) (unknown) (unknown) benzonatate 10 0 mg capsule (units unknown) (unknown) (unknown) (no date) (unknown) (unknown) capsule,extend ed release (units unknown) (unknown) (unknown) (no date) (unknown) (unknown) ciprofloxacin Allergy Severe Anaphylaxis Verified 02/06/22 16:40 (units unknown) (unknown) (unknown) (no date) (unknown) (unknown) drinking alcoh ol she reports she had drinks. Shaina reports multiple seizures. (units unknown) (unknown) (unknown) (no date) (unknown) (unknown) duloxetine Adv Reac Severe neurologica Verified 02/06/22 16:40 (units unknown) (unknown) (unknown) (no date) (unknown) (unknown) electrolytes a nd WBC within normal limits. Head CT did not show any abnormality (units unknown) (unknown) (unknown) (no date) (unknown) (unknown) fluticasone propionate 220 1 puff inhalation BID 04/27/21 02/06/22 (units unknown) (unknown) (unknown) (no date) (unknown) (unknown) following (units unknown) (unknown) (unknown) (no date) (unknown) (unknown) for seizure. Abnormal seizure shaking quickly stops push herself up on the bed (units unknown) (unknown) (unknown) (no date) (unknown) (unknown) furosemide 20 mg tablet 20 mg PO DAILY 04/27/21 02/06/22 (units unknown) (unknown) (unknown) (no date) (unknown) (unknown) furosemide 20 mg tablet (units unknown) (unknown) (unknown) (no date) (unknown) (unknown) guarding or rebound. (units unknown) (unknown) (unknown) (no date) (unknown) (unknown) infection #22 grams (units unknown) (unknown) (unknown) (no date) (unknown) (unknown) intact (units unknown) (unknown) (unknown) (no date) (unknown) (unknown) interface (units unknown) (unknown) (unknown) (no date) (unknown) (unknown) l (units unknown) (unknown) (unknown) (no date) (unknown) (unknown) lesions.? (units unknown) (unknown) (unknown) (no date) (unknown) (unknown) mcg/actuation HFA aerosol inhaler (units unknown) (unknown) (unknown) (no date) (unknown) (unknown) meloxicam 15 m g tablet 15 mg PO DAILY 04/27/21 02/06/22 (units unknown) (unknown) (unknown) (no date) (unknown) (unknown) meloxicam 15 m g tablet (units unknown) (unknown) (unknown) (no date) (unknown) (unknown) membranes (units unknown) (unknown) (unknown) (no date) (unknown) (unknown) months. I karuna mmend no drinking alcohol. Please be sure to drink fluids today. (units unknown) (unknown) (unknown) (no date) (unknown) (unknown) mupirocin 2 % ointment (units unknown) (unknown) (unknown) (no date) (unknown) (unknown) mupirocin 2 % topical ointment 1 applic topical BID nasal 02/06/22 (units unknown) (unknown) (unknown) (no date) (unknown) (unknown) new, worsening or concerning symptoms (units unknown) (unknown) (unknown) (no date) (unknown) (unknown) patient (units unknown) (unknown) (unknown) (no date) (unknown) (unknown) potassium chlo ride 10 mEq 10 meq PO DAILY 04/27/21 02/06/22 (units unknown) (unknown) (unknown) (no date) (unknown) (unknown) potassium chlo ride 10 mEq capsule, extended release (units unknown) (unknown) (unknown) (no date) (unknown) (unknown) presenting tod ay with multiple seizures. EMS witnessed full body on shaking (units unknown) (unknown) (unknown) (no date) (unknown) (unknown) prolactin is 6 5. Possibly she did have a seizure. However based on the (units unknown) (unknown) (unknown) (no date) (unknown) (unknown) sertraline 100 mg tablet 100 mg PO DAILY 04/27/21 02/06/22 (units unknown) (unknown) (unknown) (no date) (unknown) (unknown) sertraline 100 mg tablet (units unknown) (unknown) (unknown) (no date) (unknown) (unknown) size.? (units unknown) (unknown) (unknown) (no date) (unknown) (unknown) suspicious (units unknown) (unknown) (unknown) (no date) (unknown) (unknown) things have re ally been under control for a long time until tonight. (units unknown) (unknown) (unknown) (no date) (unknown) (unknown) to the (units unknown) (unknown) (unknown) (no date) (unknown) (unknown) tobacco type: cigarettes (units unknown) (unknown) (unknown) (no date) (unknown) (unknown) vertex, with coronal and sagittal reformats.? For radiation dose reduction, the (units unknown) (unknown) (unknown) (no date) (unknown) (unknown) was used:? automated exposure control, adjustment of mA and/or kV according to (units unknown) (unknown) Result panel 128 (unknown) (no date) (unknown) (unknown) (no value) (units unknown) (unknown) (unknown) (no date) (unknown) (unknown) <Electronicall y signed by Regina Murguia D.O.> (units unknown) (unknown) (unknown) (no date) (unknown) (unknown) (Flovent HFA) (units unknown) (unknown) (unknown) (no date) (unknown) (unknown) *Continue to t rodney medications as directed (units unknown) (unknown) (unknown) (no date) (unknown) (unknown) *Follow up wit h your primary care provider in 2-3 days or call [phone] (units unknown) (unknown) (unknown) (no date) (unknown) (unknown) *Return to ER if you should have recurrent seizure increased confusion or any (units unknown) (unknown) (unknown) (no date) (unknown) (unknown) *What to do: A t this time you can not drive until seen by neurology or for 6 (units unknown) (unknown) (unknown) (no date) (unknown) (unknown) *You have been diagnosed with nonepileptic seizures (units unknown) (unknown) (unknown) (no date) (unknown) (unknown) 01:22 10/07/22 (unit s unknown) (unknown) (unknown) (no date) (unknown) (unknown) 01:31 10/07/22 (unit s unknown) (unknown) (unknown) (no date) (unknown) (unknown) 01:31 (units unknown) (unknown) (unknown) (no date) (unknown) (unknown) 02:00 10/07/22 (unit s unknown) (unknown) (unknown) (no date) (unknown) (unknown) 02:08 02:08 (units unknown) (unknown) (unknown) (no date) (unknown) (unknown) 02:09 10/07/22 (unit s unknown) (unknown) (unknown) (no date) (unknown) (unknown) 02:09 (units unknown) (unknown) (unknown) (no date) (unknown) (unknown) 02:30 10/07/22 (unit s unknown) (unknown) (unknown) (no date) (unknown) (unknown) 10/07/22 01:23 (unit s unknown) (unknown) (unknown) (no date) (unknown) (unknown) 10/07/22 02:08 (unit s unknown) (unknown) (unknown) (no date) (unknown) (unknown) 10/07/2210/07 Range/Units (units unknown) (unknown) (unknown) (no date) (unknown) (unknown) 10/07/22 0705 (units unknown) (unknown) (unknown) (no date) (unknown) (unknown) 10/07/22 (units unknown) (unknown) (unknown) (no date) (unknown) (unknown) 03:00 10/07/22 (unit s unknown) (unknown) (unknown) (no date) (unknown) (unknown) 03:30 (units unknown) (unknown) (unknown) (no date) (unknown) (unknown) 04:00 10/07/22 (unit s unknown) (unknown) (unknown) (no date) (unknown) (unknown) 04:30 10/07/22 (unit s unknown) (unknown) (unknown) (no date) (unknown) (unknown) 05:00 (units unknown) (unknown) (unknown) (no date) (unknown) (unknown) 05:30 10/07/22 (unit s unknown) (unknown) (unknown) (no date) (unknown) (unknown) 05:55 10/07/22 (unit s unknown) (unknown) (unknown) (no date) (unknown) (unknown) 05:56 (units unknown) (unknown) (unknown) (no date) (unknown) (unknown) 1 applic topic al BID Qty: 22 0RF (units unknown) (unknown) (unknown) (no date) (unknown) (unknown) 1 puff inhalat ion BID (units unknown) (unknown) (unknown) (no date) (unknown) (unknown) 1. No acute intracranial abnormality. (units unknown) (unknown) (unknown) (no date) (unknown) (unknown) 10 meq PO DAILY (uni ts unknown) (unknown) (unknown) (no date) (unknown) (unknown) 100 mg PO BID PRN (Reason: cough) Qty: 20 0RF (units unknown) (unknown) (unknown) (no date) (unknown) (unknown) 100 mg PO DAILY (uni ts unknown) (unknown) (unknown) (no date) (unknown) (unknown) 15 mg PO DAILY (unit s unknown) (unknown) (unknown) (no date) (unknown) (unknown) 2 puff inhalat ion Q4-6H PRN (units unknown) (unknown) (unknown) (no date) (unknown) (unknown) 20 mg PO DAILY (unit s unknown) (unknown) (unknown) (no date) (unknown) (unknown) 6:00 a.m.. Pat ient awake alert much better. She reports that she is been under (units unknown) (unknown) (unknown) (no date) (unknown) (unknown) ? (units unknown) (unknown) (unknown) (no date) (unknown) (unknown) ABDOMEN: Soft, nontender. Normoactive bowel sounds all 4 quadrants. No (units unknown) (unknown) (unknown) (no date) (unknown) (unknown) ALT 23 (<35) IU/L (u nits unknown) (unknown) (unknown) (no date) (unknown) (unknown) AST 26 (14-36) IU/L (units unknown) (unknown) (unknown) (no date) (unknown) (unknown) Activity Restrictions/Additi onal Instructions: (units unknown) (unknown) (unknown) (no date) (unknown) (unknown) Age/Sex: 27 / F (uni ts unknown) (unknown) (unknown) (no date) (unknown) (unknown) Albumin 4.2 (3.5-5.0) g/dL (units unknown) (unknown) (unknown) (no date) (unknown) (unknown) Albumin/Globul in Ratio 1.2 (1.0-2.8) (units unknown) (unknown) (unknown) (no date) (unknown) (unknown) Alkaline Phosphatase 66 (38-126) U/L (units unknown) (unknown) (unknown) (no date) (unknown) (unknown) Allergies (units unknown) (unknown) (unknown) (no date) (unknown) (unknown) Allergy/AdvRea c Type Severity Reaction Status Date / Time (units unknown) (unknown) (unknown) (no date) (unknown) (unknown) At this time n o reason to start antiepileptic medication. (units unknown) (unknown) (unknown) (no date) (unknown) (unknown) BUN 8 (7-17) mg/dL ( units unknown) (unknown) (unknown) (no date) (unknown) (unknown) BUN/Creatinine Ratio 13.3 (6-22) (units unknown) (unknown) (unknown) (no date) (unknown) (unknown) Baso # (Auto) 0 (0-100) /uL (units unknown) (unknown) (unknown) (no date) (unknown) (unknown) Baso % (Auto) 0.5 (0-2) % (units unknown) (unknown) (unknown) (no date) (unknown) (unknown) Blood Pressure 111/60 (units unknown) (unknown) (unknown) (no date) (unknown) (unknown) Blood Pressure 115/61 (units unknown) (unknown) (unknown) (no date) (unknown) (unknown) Blood Pressure 115/62 (units unknown) (unknown) (unknown) (no date) (unknown) (unknown) Blood Pressure 116/60 (units unknown) (unknown) (unknown) (no date) (unknown) (unknown) Blood Pressure 135/65 03/14/23 01:22 (units unknown) (unknown) (unknown) (no date) (unknown) (unknown) Blood Pressure 135/65 115/60 (units unknown) (unknown) (unknown) (no date) (unknown) (unknown) Blood work is reviewed she is found to be intoxicated 163. Bicarb is 16 and (units unknown) (unknown) (unknown) (no date) (unknown) (unknown) Brain:? No intracranial hemorrhage, mass, or mass effect.? Dior-white matter (units unknown) (unknown) (unknown) (no date) (unknown) (unknown) CARDIOVASCULAR : Regular rate and rhythm without murmurs, rubs or gallops. (units unknown) (unknown) (unknown) (no date) (unknown) (unknown) CBC Auto Diff [Complete Blood Count AUTO DIFF] Stat (units unknown) (unknown) (unknown) (no date) (unknown) (unknown) CMP [Comprehen sive Metabolic Panel] Stat (units unknown) (unknown) (unknown) (no date) (unknown) (unknown) COMPARISON:? None. ( units unknown) (unknown) (unknown) (no date) (unknown) (unknown) CSF spaces:? B malini cisterns are patent.? No extra-axial fluid collections.? (units unknown) (unknown) (unknown) (no date) (unknown) (unknown) CT head/brain wo con Stat (units unknown) (unknown) (unknown) (no date) (unknown) (unknown) CT scan - head: (uni ts unknown) (unknown) (unknown) (no date) (unknown) (unknown) Calcium 8.3 L (8.4-10.2) mg/dL (units unknown) (unknown) (unknown) (no date) (unknown) (unknown) Carbon Dioxide 16 L (22-32) mmol/L (units unknown) (unknown) (unknown) (no date) (unknown) (unknown) Chief Complain t: Seizure (units unknown) (unknown) (unknown) (no date) (unknown) (unknown) Chloride 100 (98-107) mmol/L (units unknown) (unknown) (unknown) (no date) (unknown) (unknown) Clinical Impression: (units unknown) (unknown) (unknown) (no date) (unknown) (unknown) Course (units unknown) (unknown) (unknown) (no date) (unknown) (unknown) Creatinine 0.6 0 (0.52-1.04) mg/dL (units unknown) (unknown) (unknown) (no date) (unknown) (unknown) : 4 Acct:[id number] (units unknown) (unknown) (unknown) (no date) (unknown) (unknown) Date of Servic e: 10/07/22 (units unknown) (unknown) (unknown) (no date) (unknown) (unknown) Departure (units unknown) (unknown) (unknown) (no date) (unknown) (unknown) Dictated by: Brandyn Quiñonez M.D. on 10/07/2022 at 2:15 ? ? (units unknown) (unknown) (unknown) (no date) (unknown) (unknown) Discharge Plan (unit s unknown) (unknown) (unknown) (no date) (unknown) (unknown) ED Orders (units unknown) (unknown) (unknown) (no date) (unknown) (unknown) ER Physician: Regina Murguia D.O. (units unknown) (unknown) (unknown) (no date) (unknown) (unknown) ETOH [Ethanol (ETOH)] Stat (units unknown) (unknown) (unknown) (no date) (unknown) (unknown) EXTREMITIES: N ormal range of motion, no clubbing or edema. Neurovascularly (units unknown) (unknown) (unknown) (no date) (unknown) (unknown) Emergency Report (un its unknown) (unknown) (unknown) (no date) (unknown) (unknown) Eos # (Auto) 1 00 (0-450) /uL (units unknown) (unknown) (unknown) (no date) (unknown) (unknown) Eos % (Auto) 1 .1 L (2-4) % (units unknown) (unknown) (unknown) (no date) (unknown) (unknown) Estimated GFR > 60 (>60) mL/min (units unknown) (unknown) (unknown) (no date) (unknown) (unknown) Ethyl Alcohol 163 H ( - 10) mg/dL (units unknown) (unknown) (unknown) (no date) (unknown) (unknown) Eustachian tub e dysfunction (units unknown) (unknown) (unknown) (no date) (unknown) (unknown) Exam (units unknown) (unknown) (unknown) (no date) (unknown) (unknown) FINDINGS:? (units unknown) (unknown) (unknown) (no date) (unknown) (unknown) Flovent HFA 22 0 mcg/actuation HFA aerosol inhaler (units unknown) (unknown) (unknown) (no date) (unknown) (unknown) GENERAL: Intoxicated 27-year-old female (units unknown) (unknown) (unknown) (no date) (unknown) (unknown) General (units unknown) (unknown) (unknown) (no date) (unknown) (unknown) Globulin 3.5 (1.7-4.1) g/dL (units unknown) (unknown) (unknown) (no date) (unknown) (unknown) Glucose 95 (70 -100) mg/dL (units unknown) (unknown) (unknown) (no date) (unknown) (unknown) HEENT: Head atraumatic,EOMI, pupils reactive, face symmetric, [moist] mucous (units unknown) (unknown) (unknown) (no date) (unknown) (unknown) HPI - Seizure (units unknown) (unknown) (unknown) (no date) (unknown) (unknown) HPI Narrative: (unit s unknown) (unknown) (unknown) (no date) (unknown) (unknown) Hct 38.1 (36-46) % ( units unknown) (unknown) (unknown) (no date) (unknown) (unknown) Hgb 13.0 (12.0-16.0) g/dL (units unknown) (unknown) (unknown) (no date) (unknown) (unknown) History of Pre sent Illness (units unknown) (unknown) (unknown) (no date) (unknown) (unknown) Home Medications (un its unknown) (unknown) (unknown) (no date) (unknown) (unknown) IMPRESSION:? (units unknown) (unknown) (unknown) (no date) (unknown) (unknown) INDICATIONS:? seizure (units unknown) (unknown) (unknown) (no date) (unknown) (unknown) Image quality: ? Excellent.? (units unknown) (unknown) (unknown) (no date) (unknown) (unknown) Imaging Data (units unknown) (unknown) (unknown) (no date) (unknown) (unknown) Initial Vital Signs (units unknown) (unknown) (unknown) (no date) (unknown) (unknown) Initial Vital Signs: (units unknown) (unknown) (unknown) (no date) (unknown) (unknown) Instructions: DI for Seizure (Not Epilepsy/Seizure Disorder) (units unknown) (unknown) (unknown) (no date) (unknown) (unknown) [address] [address] (units unknown) (unknown) (unknown) (no date) (unknown) (unknown) Lab Data (units unknown) (unknown) (unknown) (no date) (unknown) (unknown) Lab Results (units unknown) (unknown) (unknown) (no date) (unknown) (unknown) Labs: (units unknown) (unknown) (unknown) (no date) (unknown) (unknown) Lymph # (Auto) 1300 (6946-4973) /uL (units unknown) (unknown) (unknown) (no date) (unknown) (unknown) Lymph % (Auto) 14.4 L (25-40) % (units unknown) (unknown) (unknown) (no date) (unknown) (unknown) [id number] (units unknown) (unknown) (unknown) (no date) (unknown) (unknown) MCH 30.1 (26-34) PG (units unknown) (unknown) (unknown) (no date) (unknown) (unknown) MCHC 34.2 (30-36) % (units unknown) (unknown) (unknown) (no date) (unknown) (unknown) MCV 88.1 (80-1 00) fL (units unknown) (unknown) (unknown) (no date) (unknown) (unknown) MDM - Seizure (units unknown) (unknown) (unknown) (no date) (unknown) (unknown) MDM Narrative (units unknown) (unknown) (unknown) (no date) (unknown) (unknown) Medical Histor y (units unknown) (unknown) (unknown) (no date) (unknown) (unknown) Medical decisi on making narrative: (units unknown) (unknown) (unknown) (no date) (unknown) (unknown) Medication Instructions Recorded Confirmed (units unknown) (unknown) (unknown) (no date) (unknown) (unknown) Medication Instructions Recorded (units unknown) (unknown) (unknown) (no date) (unknown) (unknown) Miscellaneous, Manjit shepherd MD [Primary Care Provider] (units unknown) (unknown) (unknown) (no date) (unknown) (unknown) Yates # (Auto) 400 (0-900) /uL (units unknown) (unknown) (unknown) (no date) (unknown) (unknown) Yates % (Auto) 5.0 (3-14) % (units unknown) (unknown) (unknown) (no date) (unknown) (unknown) NEUROLOGICAL: Alert oriented to person slurred speech moving all extremities (units unknown) (unknown) (unknown) (no date) (unknown) (unknown) Neut # (Auto) 7000 (6245-1980) /uL (units unknown) (unknown) (unknown) (no date) (unknown) (unknown) Neut % (Auto) 79.0 H (50-75) % (units unknown) (unknown) (unknown) (no date) (unknown) (unknown) No Action (units unknown) (unknown) (unknown) (no date) (unknown) (unknown) Noncontrast 4. 5 mm thick angled axial sections acquired from the foramen magnum (units unknown) (unknown) (unknown) (no date) (unknown) (unknown) Ordered: (units unknown) (unknown) (unknown) (no date) (unknown) (unknown) Orders (units unknown) (unknown) (unknown) (no date) (unknown) (unknown) Oxygen Deliver y Method Room Air 10/07/22 01:22 (units unknown) (unknown) (unknown) (no date) (unknown) (unknown) Oxygen Deliver y Method Room Air (units unknown) (unknown) (unknown) (no date) (unknown) (unknown) Oxygen Deliver y Method (units unknown) (unknown) (unknown) (no date) (unknown) (unknown) PROCEDURE:? CT HEAD/BRAIN WO CON (units unknown) (unknown) (unknown) (no date) (unknown) (unknown) Patient 27-yea r-old female history of stress-induced seizures called to bedside (units unknown) (unknown) (unknown) (no date) (unknown) (unknown) Patient Disposition: Home (units unknown) (unknown) (unknown) (no date) (unknown) (unknown) Patient History (uni ts unknown) (unknown) (unknown) (no date) (unknown) (unknown) Patient is a 27-year-old female with history of stress-induced seizures (units unknown) (unknown) (unknown) (no date) (unknown) (unknown) Patient: Sabrina Hawkins MR#: (units unknown) (unknown) (unknown) (no date) (unknown) (unknown) Penicillins Celso cota Severe anaphylaxis Verified 02/06/22 16:40 (units unknown) (unknown) (unknown) (no date) (unknown) (unknown) Plt Count 308 (150-400) X103/uL (units unknown) (unknown) (unknown) (no date) (unknown) (unknown) Potassium 3.4 (3.4-5.1) mmol/L (units unknown) (unknown) (unknown) (no date) (unknown) (unknown) Prescriptions: (unit s unknown) (unknown) (unknown) (no date) (unknown) (unknown) Previous Rx's (units unknown) (unknown) (unknown) (no date) (unknown) (unknown) Prolactin 65.7 H (3.0-18.6) ng/mL (units unknown) (unknown) (unknown) (no date) (unknown) (unknown) Prolactin Stat (unit s unknown) (unknown) (unknown) (no date) (unknown) (unknown) Psychogenic nonepileptic seizure (units unknown) (unknown) (unknown) (no date) (unknown) (unknown) Pulse Oximetry 100 98 97 (units unknown) (unknown) (unknown) (no date) (unknown) (unknown) Pulse Oximetry 97 98 99 (units unknown) (unknown) (unknown) (no date) (unknown) (unknown) Pulse Oximetry 98 10/07/22 01:22 (units unknown) (unknown) (unknown) (no date) (unknown) (unknown) Pulse Oximetry 98 100 (units unknown) (unknown) (unknown) (no date) (unknown) (unknown) Pulse Oximetry 99 100 (units unknown) (unknown) (unknown) (no date) (unknown) (unknown) Pulse Oximetry 99 98 (units unknown) (unknown) (unknown) (no date) (unknown) (unknown) Pulse Rate 105 H 10/07/22 01:22 (units unknown) (unknown) (unknown) (no date) (unknown) (unknown) Pulse Rate 105 H 97 H (units unknown) (unknown) (unknown) (no date) (unknown) (unknown) Pulse Rate 116 H 98 H (units unknown) (unknown) (unknown) (no date) (unknown) (unknown) Pulse Rate 72 78 (un its unknown) (unknown) (unknown) (no date) (unknown) (unknown) Pulse Rate 80 78 73 (units unknown) (unknown) (unknown) (no date) (unknown) (unknown) Pulse Rate 90 81 82 (units unknown) (unknown) (unknown) (no date) (unknown) (unknown) RBC 4.32 (4.0- 5.2) X106/uL (units unknown) (unknown) (unknown) (no date) (unknown) (unknown) RDW 12.7 (11.6-14.8) % (units unknown) (unknown) (unknown) (no date) (unknown) (unknown) RESPIRATORY: B reath sounds equal bilaterally, no wheezes rales or rhonchi. (units unknown) (unknown) (unknown) (no date) (unknown) (unknown) ROS Unobtainab le: All systems reviewed + are unremarkable except as noted in HPI (units unknown) (unknown) (unknown) (no date) (unknown) (unknown) Radiologist's Impression: (units unknown) (unknown) (unknown) (no date) (unknown) (unknown) Referrals: (units unknown) (unknown) (unknown) (no date) (unknown) (unknown) Related Data (units unknown) (unknown) (unknown) (no date) (unknown) (unknown) Respiratory Ra te 16 10/07/22 01:22 (units unknown) (unknown) (unknown) (no date) (unknown) (unknown) Respiratory Rate 16 (units unknown) (unknown) (unknown) (no date) (unknown) (unknown) Respiratory Rate (un its unknown) (unknown) (unknown) (no date) (unknown) (unknown) Review of Systems (u nits unknown) (unknown) (unknown) (no date) (unknown) (unknown) SKIN: Warm, dr y, no laceration, no petechiae, no rashes or lesions. (units unknown) (unknown) (unknown) (no date) (unknown) (unknown) Signed By: (units unknown) (unknown) (unknown) (no date) (unknown) (unknown) Sinuses:? Visualized sinuses and mastoids are clear.? (units unknown) (unknown) (unknown) (no date) (unknown) (unknown) Skull and face :? Calvarium and visualized facial bones are intact, without (units unknown) (unknown) (unknown) (no date) (unknown) (unknown) Smoking Status : Current every day smoker (units unknown) (unknown) (unknown) (no date) (unknown) (unknown) Social History (units unknown) (unknown) (unknown) (no date) (unknown) (unknown) Sodium 133 L (137-145) mmol/L (units unknown) (unknown) (unknown) (no date) (unknown) (unknown) Stand Alone Fo betina: Patient Portal/API (units unknown) (unknown) (unknown) (no date) (unknown) (unknown) Stated Complai nt: Seizure (units unknown) (unknown) (unknown) (no date) (unknown) (unknown) Substance Use Type: does not use (units unknown) (unknown) (unknown) (no date) (unknown) (unknown) TECHNIQUE:? (units unknown) (unknown) (unknown) (no date) (unknown) (unknown) Time Seen by Provider: 10/07/22 01:21 (units unknown) (unknown) (unknown) (no date) (unknown) (unknown) Total Bilirubi n 0.3 (0.2-1.3) mg/dL (units unknown) (unknown) (unknown) (no date) (unknown) (unknown) Total Protein 7.7 (6.3-8.2) g/dL (units unknown) (unknown) (unknown) (no date) (unknown) (unknown) Ventricles (units unknown) (unknown) (unknown) (no date) (unknown) (unknown) Vital Signs - 8 hr ( units unknown) (unknown) (unknown) (no date) (unknown) (unknown) Vital Signs (units unknown) (unknown) (unknown) (no date) (unknown) (unknown) Vital signs: (units unknown) (unknown) (unknown) (no date) (unknown) (unknown) WBC 8.8 (4.5-1 1.0) X103/uL (units unknown) (unknown) (unknown) (no date) (unknown) (unknown) [Embedded Imag e Not Available] (units unknown) (unknown) (unknown) (no date) (unknown) (unknown) a lot of stres s she went drinking which she normally does not. He says that (units unknown) (unknown) (unknown) (no date) (unknown) (unknown) activity that I witnessed and what EMS reports my suspicion is low. Other (units unknown) (unknown) (unknown) (no date) (unknown) (unknown) aerosol inhaler (uni ts unknown) (unknown) (unknown) (no date) (unknown) (unknown) albuterol sulf ate 90 mcg/actuation 2 puff inhalation Q4-6H PRN 04/27/21 02/06/22 (units unknown) (unknown) (unknown) (no date) (unknown) (unknown) albuterol sulf ate 90 mcg/actuation HFA aerosol inhaler (units unknown) (unknown) (unknown) (no date) (unknown) (unknown) alcohol intake frequency: a few times a week (units unknown) (unknown) (unknown) (no date) (unknown) (unknown) and below (units unknown) (unknown) (unknown) (no date) (unknown) (unknown) and was incidentally talking. Suspect pseudoseizures. (units unknown) (unknown) (unknown) (no date) (unknown) (unknown) appears preserved.? (units unknown) (unknown) (unknown) (no date) (unknown) (unknown) are normal in size and shape.? (units unknown) (unknown) (unknown) (no date) (unknown) (unknown) behavior and s he was given 5 mg of Versed. She was at the [facility] (units unknown) (unknown) (unknown) (no date) (unknown) (unknown) benzonatate 10 0 mg capsule 100 mg PO BID PRN cough #20 caps 08/31/22 (units unknown) (unknown) (unknown) (no date) (unknown) (unknown) benzonatate 10 0 mg capsule (units unknown) (unknown) (unknown) (no date) (unknown) (unknown) capsule,extend ed release (units unknown) (unknown) (unknown) (no date) (unknown) (unknown) ciprofloxacin Allergy Severe Anaphylaxis Verified 02/06/22 16:40 (units unknown) (unknown) (unknown) (no date) (unknown) (unknown) drinking alcoh ol she reports she had drinks. Shaina reports multiple seizures. (units unknown) (unknown) (unknown) (no date) (unknown) (unknown) duloxetine Adv Reac Severe neurologica Verified 02/06/22 16:40 (units unknown) (unknown) (unknown) (no date) (unknown) (unknown) electrolytes a nd WBC within normal limits. Head CT did not show any abnormality (units unknown) (unknown) (unknown) (no date) (unknown) (unknown) fluticasone propionate 220 1 puff inhalation BID 04/27/21 02/06/22 (units unknown) (unknown) (unknown) (no date) (unknown) (unknown) following (units unknown) (unknown) (unknown) (no date) (unknown) (unknown) for seizure. Abnormal seizure shaking quickly stops push herself up on the bed (units unknown) (unknown) (unknown) (no date) (unknown) (unknown) furosemide 20 mg tablet 20 mg PO DAILY 04/27/21 02/06/22 (units unknown) (unknown) (unknown) (no date) (unknown) (unknown) furosemide 20 mg tablet (units unknown) (unknown) (unknown) (no date) (unknown) (unknown) guarding or rebound. (units unknown) (unknown) (unknown) (no date) (unknown) (unknown) infection #22 grams (units unknown) (unknown) (unknown) (no date) (unknown) (unknown) intact (units unknown) (unknown) (unknown) (no date) (unknown) (unknown) interface (units unknown) (unknown) (unknown) (no date) (unknown) (unknown) l (units unknown) (unknown) (unknown) (no date) (unknown) (unknown) lesions.? (units unknown) (unknown) (unknown) (no date) (unknown) (unknown) mcg/actuation HFA aerosol inhaler (units unknown) (unknown) (unknown) (no date) (unknown) (unknown) meloxicam 15 m g tablet 15 mg PO DAILY 04/27/21 02/06/22 (units unknown) (unknown) (unknown) (no date) (unknown) (unknown) meloxicam 15 m g tablet (units unknown) (unknown) (unknown) (no date) (unknown) (unknown) membranes (units unknown) (unknown) (unknown) (no date) (unknown) (unknown) months. I karuna mmend no drinking alcohol. Please be sure to drink fluids today. (units unknown) (unknown) (unknown) (no date) (unknown) (unknown) mupirocin 2 % ointment (units unknown) (unknown) (unknown) (no date) (unknown) (unknown) mupirocin 2 % topical ointment 1 applic topical BID nasal 02/06/22 (units unknown) (unknown) (unknown) (no date) (unknown) (unknown) new, worsening or concerning symptoms (units unknown) (unknown) (unknown) (no date) (unknown) (unknown) patient (units unknown) (unknown) (unknown) (no date) (unknown) (unknown) potassium chlo ride 10 mEq 10 meq PO DAILY 04/27/21 02/06/22 (units unknown) (unknown) (unknown) (no date) (unknown) (unknown) potassium chlo ride 10 mEq capsule, extended release (units unknown) (unknown) (unknown) (no date) (unknown) (unknown) presenting tod ay with multiple seizures. EMS witnessed full body on shaking (units unknown) (unknown) (unknown) (no date) (unknown) (unknown) prolactin is 6 5. Possibly she did have a seizure. However based on the (units unknown) (unknown) (unknown) (no date) (unknown) (unknown) sertraline 100 mg tablet 100 mg PO DAILY 04/27/21 02/06/22 (units unknown) (unknown) (unknown) (no date) (unknown) (unknown) sertraline 100 mg tablet (units unknown) (unknown) (unknown) (no date) (unknown) (unknown) size.? (units unknown) (unknown) (unknown) (no date) (unknown) (unknown) suspicious (units unknown) (unknown) (unknown) (no date) (unknown) (unknown) things have re ally been under control for a long time until tonight. (units unknown) (unknown) (unknown) (no date) (unknown) (unknown) to the (units unknown) (unknown) (unknown) (no date) (unknown) (unknown) tobacco type: cigarettes (units unknown) (unknown) (unknown) (no date) (unknown) (unknown) vertex, with coronal and sagittal reformats.? For radiation dose reduction, the (units unknown) (unknown) (unknown) (no date) (unknown) (unknown) was used:? automated exposure control, adjustment of mA and/or kV according to (units unknown) (unknown) Social History date description facility 2022-10-07 00:00 Smokes tobacco daily (finding) [facility] 2022-12-10 00:00 Never smoker [facility] [place] Vital Signs date measurement value units 2022-10-07 00:00 BMI 37.4 kg/m2 2022-10-07 00:00 BP_diastolic 60 mmHg 2022-10-07 00:00 BP_systolic 111 mmHg 2022-10-07 00:00 heart_rate 78 /min 2022-10-07 00:00 height_metric 172.72 cm 2022-10-07 00:00 height_standard 68 in 2022-10-07 00:00 o2_saturation 98 % 2022-10-07 00:00 respiration_rate 16 /min 2022-10-07 00:00 weight_metric 111.58 kg 2022-10-07 00:00 weight_standard 245.99 lb 2022-12-10 00:00 BMI 36.62 kg/m2 2022-12-10 00:00 BP_diastolic 91 mmHg 2022-12-10 00:00 BP_systolic 158 mmHg 2022-12-10 00:00 heart_rate 130 /min 2022-12-10 00:00 height_metric 172.72 cm 2022-12-10 00:00 height_standard 68 in 2022-12-10 00:00 respiration_rate 20 /min 2022-12-10 00:00 weight_metric 108.86 kg 2022-12-10 00:00 weight_standard 240 lb
[2022-12-10 21:26] VITALS: BP 101/68
== END 2022-12-10 21:59 | disposition home or self-care (01) ==
LOC: EDUNIT# → ED 16:03
DX: T63.441A Toxic effect of venom of bees, accidental (unintentional), initial encounter (principal); R06.09 Other forms of dyspnea; Y92.9 Unspecified place or not applicable; Y99.0 Civilian activity done for income or pay; R22.1 Localized swelling, mass and lump, neck; E11.9 Type 2 diabetes mellitus without complications; F41.9 Anxiety disorder, unspecified; M79.605 Pain in left leg
CPT/HCPCS: 1040M; 36415; 71045; 80053; 83690; 85025; 93005; 96374; 99284; J1170

== ENCOUNTER 2022-12-22 10:43 | Emergency (ER) | payer MEDICAID ==
[2022-12-22] MEDS ORDERED: ONDANSETRON ODT 4 MG TABLET TL STA (11:08)
[2022-12-22 11:24] LABS: BASOPHILS # (AUTO) 0.1 10^3/uL (0.0-0.1); BASOPHILS % (AUTO) 0.9 %; EOSINOPHILS # (AUTO) 0.3 10^3/uL (0.0-0.7); EOSINOPHILS % (AUTO) 3.2 %; HCT - HEMATOCRIT 39.9 % (37.0-47.0); HGB - HEMOGLOBIN 13.5 g/dL (12.0-16.0); LYMPHOCYTES # (AUTO) 1.9 10^3/uL (1.5-3.5); LYMPHOCYTES % (AUTO) 21.7 %; MEAN CORPUSCULAR HEMOGLOBIN 30.4 pg (27.0-31.0); MEAN CORPUSCULAR HGB CONC 33.8 g/dL (32.0-36.0); MEAN CORPUSCULAR VOLUME 89.9 fL (81.0-99.0); MEAN PLATELET VOLUME 9.2 fL (7.9-10.8); MONOCYTES # (AUTO) 0.6 10^3/uL (0.0-1.0); MONOCYTES % (AUTO) 6.8 %; NEUTROPHILS # (AUTO) 5.9 10^3/uL (1.5-6.6); NEUTROPHILS % (AUTO) 67.1 %; PLT - PLATELET COUNT 397 10^3/uL (130-450); RED BLOOD COUNT 4.44 10^6/uL (4.20-5.40); RED CELL DISTRIBUTION WIDTH 13.1 % (12.0-15.0); WHITE BLOOD COUNT 8.8 x10^3/uL (4.8-10.8)
[2022-12-22 11:25] LABS: BILIRUBIN,URINE NEGATIVE (NEGATIVE); GLUCOSE, URINE (UA) NEGATIVE (NEGATIVE); KETONES,URINE (UA) NEGATIVE (NEGATIVE); LEUKOCYTE ESTERASE, URINE NEGATIVE (NEGATIVE); NITRITE,URINE NEGATIVE (NEGATIVE); OCCULT BLOOD,URINE NEGATIVE (NEGATIVE); PH,URINE 6.5 PH (5.0-7.5); PROTEIN,URINE NEGATIVE (NEGATIVE); UROBILINOGEN,URINE 0.2 (NORMAL) E.U./dL (NORMAL)
[2022-12-22 11:33] LABS: CLARITY,URINE CLEAR (CLEAR); HCG UR QUAL NEGATIVE
--- OUTSIDE RECORDS SUMMARY | 2022-12-22 11:39 | EXTERNAL MEDICAL SUMMARY RPT | Continuity of Care Document ---
Author Name Unknown Address [address] [place] [address] Phone Organization [place] Address [address] [place] [address] Phone Care Team Providers Care Terminal Manager Name Role Phone Unavailable Unavailable Unavailable Stephen Villar Pa-C Unavailable Unavailable Niko Moreno Unavailable Unavailable Allergies and Intolerances date description facility type (no date) [facility] (unknown) (no date) [facility] (unknown) (no date) [facility] (unknown) Medications date description facility 2022-12-10 00:00 [facility]amivir [facility] [place] 2022-12-11 00:00 oseltamivir [facility] [place] 2022-12-10 00:00 venlafaxine [facility] [place] 2022-12-11 00:00 venlafaxine [facility] [place] 2022-12-10 00:00 DIPHENHYDRAMINE HCL Walk-In [facility] [place] 2022-12-10 00:00 oseltamivir [facility] [place] 2022-12-11 00:00 oseltamivir [facility] [place] 2022-12-10 00:00 cholecalciferol (vitamin d3) [facility] [place] 2022-12-11 00:00 cholecalciferol (vitamin d3) [facility] [place] 2022-12-10 00:00 cholecalciferol (vitamin d3) [facility] [place] 2022-12-11 00:00 cholecalciferol (vitamin d3) [facility] [place] 2022-12-10 00:00 omeprazole [facility] [place] 2022-12-11 00:00 omeprazole [facility] [place] 2022-12-10 00:00 trazodone [facility] [place] 2022-12-11 00:00 trazodone [facility] [place] 2022-12-10 00:00 pantoprazole [facility] [place] 2022-12-11 00:00 pantoprazole [facility] [place] 2022-12-10 00:00 oseltamivir [facility] [place] 2022-12-11 00:00 oseltamivir [facility] [place] 2022-12-10 00:00 DEXAMETHASONE SODIUM PHOSPHATE [facility] [place] 2022-12-10 00:00 sucralfate [facility] [place] 2022-12-11 00:00 sucralfate [facility] [place] 2022-12-10 00:00 sucralfate [facility] [place] 2022-12-11 00:00 sucralfate [facility] [place] 2022-12-10 00:00 venlafaxine [facility] [place] 2022-12-11 00:00 venlafaxine [facility] [place] 2022-12-10 00:00 venlafaxine [facility] [place] 2022-12-11 00:00 venlafaxine [facility] [place] 2022-12-10 00:00 venlafaxine [facility] [place] 2022-12-11 00:00 venlafaxine [facility] [place] 2022-12-10 00:00 albuterol sulfate [facility] [place] 2022-12-11 00:00 albuterol sulfate [facility] [place] 2022-12-10 00:00 fluticasone propionate [facility] [place] 2022-12-11 00:00 fluticasone propionate [facility] [place] 2022-12-10 00:00 albuterol sulfate [facility] [place] 2022-12-11 00:00 albuterol sulfate [facility] [place] 2022-12-10 00:00 omeprazole [facility] [place] 2022-12-11 00:00 omeprazole [facility] [place] 2022-12-10 00:00 pantoprazole [facility] [place] 2022-12-11 00:00 pantoprazole [facility] [place] 2022-12-10 00:00 sucralfate [facility] [place] 2022-12-11 00:00 sucralfate [facility] [place] 2022-12-10 00:00 trazodone [facility] [place] 2022-12-11 00:00 trazodone [facility] [place] 2022-12-10 00:00 pantoprazole [facility] [place] 2022-12-11 00:00 pantoprazole [facility] [place] 2022-12-10 00:00 trazodone [facility] [place] 2022-12-11 00:00 trazodone [facility] [place] 2022-12-10 00:00 venlafaxine [facility] [place] 2022-12-11 00:00 venlafaxine [facility] [place] 2022-12-10 00:00 venlafaxine [facility] [place] 2022-12-11 00:00 venlafaxine [facility] [place] 2022-12-10 00:00 omeprazole [facility] [place] 2022-12-11 00:00 omeprazole [facility] [place] 2022-12-10 00:00 pantoprazole [facility] [place] 2022-12-11 00:00 pantoprazole [facility] [place] 2022-12-10 00:00 oseltamivir [facility] [place] 2022-12-11 00:00 oseltamivir [facility] [place] 2022-12-10 00:00 omeprazole [facility] [place] 2022-12-11 00:00 omeprazole [facility] [place] 2022-12-10 00:00 venlafaxine [facility] [place] 2022-12-11 00:00 venlafaxine [facility] [place] 2022-12-10 00:00 sucralfate [facility] [place] 2022-12-11 00:00 sucralfate [facility] [place] 2022-12-10 00:00 albuterol sulfate [facility] [place] 2022-12-11 00:00 albuterol sulfate [facility] [place] 2022-12-10 00:00 fluticasone propionate [facility] [place] 2022-12-11 00:00 fluticasone propionate [facility] [place] 2022-12-10 00:00 cholecalciferol (vitamin d3) [facility] [place] 2022-12-11 00:00 cholecalciferol (vitamin d3) [facility] [place] 2022-12-10 00:00 venlafaxine [facility] [place] 2022-12-11 00:00 venlafaxine [facility] [place] 2022-12-10 00:00 EPINEPHRINE [facility] [place] 2022-12-10 00:00 cholecalciferol (vitamin d3) [facility] [place] 2022-12-11 00:00 cholecalciferol (vitamin d3) [facility] [place] 2022-12-10 00:00 albuterol sulfate [facility] [place] 2022-12-11 00:00 albuterol sulfate [facility] [place] 2022-12-10 00:00 trazodone [facility] [place] 2022-12-11 00:00 trazodone [facility] [place] 2022-12-10 00:00 fluticasone propionate [facility] [place] 2022-12-11 00:00 fluticasone propionate [facility] [place] 2022-12-10 00:00 fluticasone propionate [facility] [place] 2022-12-11 00:00 fluticasone propionate [facility] [place] Problems date description facility 2022-10-07 00:00 Psychogenic nonepileptic seizur e [facility] Procedures date description facility 2022-12-10 00:00 Visit Code Hold [facility] [place] 2022-10-07 00:00 Computed tomography of head or brain without contrast [facility] Results/Labs test date author facility value unit interpretation Result panel 1 (unknown) (no date) (unknown) [facility] (no value) (units unknown) (unknown) Result panel 2 (unknown) (no date) (unknown) [facility] (no value) (units unknown) (unknown) Result panel 3 (unknown) (no date) (unknown) [facility] (no value) (units unknown) (unknown) Result panel 4 (unknown) (no date) (unknown) [facility] (no value) (units unknown) (unknown) Result panel 5 (unknown) (no date) (unknown) [facility] (no value) (units unknown) (unknown) Result panel 6 (unknown) (no date) (unknown) [facility] (no value) (units unknown) (unknown) Result panel 7 (unknown) (no date) (unknown) [facility] (no value) (units unknown) (unknown) Result panel 8 (unknown) (no date) (unknown) [facility] (no value) (units unknown) (unknown) Result panel 9 (unknown) (no date) (unknown) [facility] (no value) (units unknown) (unknown) Result panel 10 (unknown) (no date) (unknown) [facility] (no value) (units unknown) (unknown) Result panel 11 (unknown) (no date) (unknown) [facility] (no value) (units unknown) (unknown) Result panel 12 (unknown) (no date) (unknown) [facility] (no value) (units unknown) (unknown) Result panel 13 (unknown) (no date) (unknown) [facility] (no value) (units unknown) (unknown) Result panel 14 (unknown) (no date) (unknown) [facility] (no value) (units unknown) (unknown) Result panel 15 (unknown) (no date) (unknown) [facility] (no value) (units unknown) (unknown) Result panel 16 (unknown) (no date) (unknown) [facility] (no value) (units unknown) (unknown) Result panel 17 (unknown) (no date) (unknown) [facility] (no value) (units unknown) (unknown) Result panel 18 (unknown) (no date) (unknown) [facility] (no value) (units unknown) (unknown) Result panel 19 (unknown) (no date) (unknown) [facility] (no value) (units unknown) (unknown) Result panel 20 (unknown) (no date) (unknown) [facility] (no value) (units unknown) (unknown) Result panel 21 (unknown) (no date) (unknown) [facility] (no value) (units unknown) (unknown) Result panel 22 (unknown) (no date) (unknown) [facility] (no value) (units unknown) (unknown) Result panel 23 (unknown) (no date) (unknown) [facility] (no value) (units unknown) (unknown) Result panel 24 (unknown) (no date) (unknown) [facility] (no value) (units unknown) (unknown) Result panel 25 (unknown) (no date) (unknown) [facility] (no value) (units unknown) (unknown) Result panel 26 (unknown) (no date) (unknown) [facility] (no value) (units unknown) (unknown) Result panel 27 (unknown) (no date) (unknown) [facility] (no value) (units unknown) (unknown) Result panel 28 (unknown) (no date) (unknown) [facility] (no value) (units unknown) (unknown) Result panel 29 (unknown) (no date) (unknown) [facility] (no value) (units unknown) (unknown) Result panel 30 (unknown) (no date) (unknown) [facility] (no value) (units unknown) (unknown) Result panel 31 (unknown) (no date) (unknown) [facility] (no value) (units unknown) (unknown) Result panel 32 (unknown) (no date) (unknown) [facility] (no value) (units unknown) (unknown) Result panel 33 (unknown) (no date) (unknown) [facility] (no value) (units unknown) (unknown) Result panel 34 (unknown) (no date) (unknown) [facility] (no value) (units unknown) (unknown) Result panel 35 (unknown) (no date) (unknown) [facility] (no value) (units unknown) (unknown) Result panel 36 (unknown) (no date) (unknown) [facility] (no value) (units unknown) (unknown) Result panel 37 (unknown) (no date) (unknown) [facility] (no value) (units unknown) (unknown) Result panel 38 (unknown) (no date) (unknown) [facility] (no value) (units unknown) (unknown) Result panel 39 (unknown) (no date) (unknown) [facility] (no value) (units unknown) (unknown) Result panel 40 (unknown) (no date) (unknown) [facility] (no value) (units unknown) (unknown) Result panel 41 (unknown) (no date) (unknown) [facility] (no value) (units unknown) (unknown) Result panel 42 (unknown) (no date) (unknown) [facility] (no value) (units unknown) (unknown) Result panel 43 (unknown) (no date) (unknown) [facility] (no value) (units unknown) (unknown) Result panel 44 (unknown) (no date) (unknown) [facility] (no value) (units unknown) (unknown) Result panel 45 (unknown) (no date) (unknown) [facility] (no value) (units unknown) (unknown) Result panel 46 (unknown) (no date) (unknown) [facility] (no value) (units unknown) (unknown) Result panel 47 (unknown) (no date) (unknown) [facility] (no value) (units unknown) (unknown) Result panel 48 (unknown) (no date) (unknown) [facility] (no value) (units unknown) (unknown) Result panel 49 (unknown) (no date) (unknown) [facility] (no value) (units unknown) (unknown) Result panel 50 (unknown) (no date) (unknown) [facility] (no value) (units unknown) (unknown) Result panel 51 (unknown) (no date) (unknown) [facility] (no value) (units unknown) (unknown) Result panel 52 (unknown) (no date) (unknown) [facility] (no value) (units unknown) (unknown) Result panel 53 (unknown) (no date) (unknown) [facility] (no value) (units unknown) (unknown) Result panel 54 (unknown) (no date) (unknown) [facility] (no value) (units unknown) (unknown) Result panel 55 (unknown) (no date) (unknown) [facility] (no value) (units unknown) (unknown) Result panel 56 (unknown) (no date) (unknown) [facility] (no value) (units unknown) (unknown) Result panel 57 (unknown) (no date) (unknown) [facility] (no value) (units unknown) (unknown) Result panel 58 (unknown) (no date) (unknown) [facility] (no value) (units unknown) (unknown) Result panel 59 (unknown) (no date) (unknown) [facility] (no value) (units unknown) (unknown) Result panel 60 (unknown) (no date) (unknown) [facility] (no value) (units unknown) (unknown) Result panel 61 (unknown) (no date) (unknown) [facility] (no value) (units unknown) (unknown) Result panel 62 (unknown) (no date) (unknown) [facility] (no value) (units unknown) (unknown) Result panel 63 (unknown) (no date) (unknown) [facility] (no value) (units unknown) (unknown) Result panel 64 (unknown) (no date) (unknown) [facility] (no value) (units unknown) (unknown) Result panel 65 (unknown) (no date) (unknown) [facility] (no value) (units unknown) (unknown) Result panel 66 (unknown) (no date) (unknown) [facility] (no value) (units unknown) (unknown) Result panel 67 (unknown) (no date) (unknown) [facility] (no value) (units unknown) (unknown) Result panel 68 (unknown) (no date) (unknown) [facility] (no value) (units unknown) (unknown) Result panel 69 (unknown) (no date) (unknown) [facility] (no value) (units unknown) (unknown) Result panel 70 (unknown) (no date) (unknown) [facility] (no value) (units unknown) (unknown) Result panel 71 (unknown) (no date) (unknown) [facility] (no value) (units unknown) (unknown) Result panel 72 (unknown) (no date) (unknown) [facility] (no value) (units unknown) (unknown) Result panel 73 (unknown) (no date) (unknown) [facility] (no value) (units unknown) (unknown) Result panel 74 (unknown) (no date) (unknown) [facility] (no value) (units unknown) (unknown) Result panel 75 (unknown) (no date) (unknown) [facility] (no value) (units unknown) (unknown) Result panel 76 (unknown) (no date) (unknown) [facility] (no value) (units unknown) (unknown) Result panel 77 (unknown) (no date) (unknown) [facility] (no value) (units unknown) (unknown) Result panel 78 (unknown) (no date) (unknown) [facility] (no value) (units unknown) (unknown) Result panel 79 (unknown) (no date) (unknown) [facility] (no value) (units unknown) (unknown) Result panel 80 (unknown) (no date) (unknown) [facility] (no value) (units unknown) (unknown) Result panel 81 (unknown) (no date) (unknown) [facility] (no value) (units unknown) (unknown) Result panel 82 (unknown) (no date) (unknown) [facility] (no value) (units unknown) (unknown) Result panel 83 (unknown) (no date) (unknown) [facility] (no value) (units unknown) (unknown) Result panel 84 (unknown) (no date) (unknown) [facility] (no value) (units unknown) (unknown) Result panel 85 (unknown) (no date) (unknown) [facility] (no value) (units unknown) (unknown) Result panel 86 (unknown) (no date) (unknown) [facility] (no value) (units unknown) (unknown) Result panel 87 (unknown) (no date) (unknown) [facility] (no value) (units unknown) (unknown) Result panel 88 (unknown) (no date) (unknown) [facility] (no value) (units unknown) (unknown) Result panel 89 (unknown) (no date) (unknown) [facility] (no value) (units unknown) (unknown) Result panel 90 (unknown) (no date) (unknown) [facility] (no value) (units unknown) (unknown) Result panel 91 (unknown) (no date) (unknown) [facility] (no value) (units unknown) (unknown) Result panel 92 (unknown) (no date) (unknown) [facility] (no value) (units unknown) (unknown) Result panel 93 (unknown) (no date) (unknown) [facility] (no value) (units unknown) (unknown) Result panel 94 (unknown) (no date) (unknown) [facility] (no value) (units unknown) (unknown) Result panel 95 (unknown) (no date) (unknown) [facility] (no value) (units unknown) (unknown) Result panel 96 (unknown) (no date) (unknown) [facility] (no value) (units unknown) (unknown) Result panel 97 (unknown) (no date) (unknown) [facility] (no value) (units unknown) (unknown) Result panel 98 (unknown) (no date) (unknown) [facility] (no value) (units unknown) (unknown) Result panel 99 (unknown) (no date) (unknown) [facility] (no value) (units unknown) (unknown) Result panel 100 (unknown) (no date) (unknown) [facility] (no value) (units unknown) (unknown) Result panel 101 (unknown) (no date) (unknown) [facility] (no value) (units unknown) (unknown) Result panel 102 (unknown) (no date) (unknown) [facility] (no value) (units unknown) (unknown) Result panel 103 (unknown) (no date) (unknown) [facility] (no value) (units unknown) (unknown) Result panel 104 (unknown) (no date) (unknown) [facility] (no value) (units unknown) (unknown) Result panel 105 (unknown) (no date) (unknown) [facility] (no value) (units unknown) (unknown) Result panel 106 (unknown) (no date) (unknown) [facility] (no value) (units unknown) (unknown) Result panel 107 (unknown) (no date) (unknown) [facility] (no value) (units unknown) (unknown) Result panel 108 (unknown) (no date) (unknown) [facility] (no value) (units unknown) (unknown) Result panel 109 (unknown) (no date) (unknown) [facility] (no value) (units unknown) (unknown) Result panel 110 (unknown) (no date) (unknown) [facility] (no value) (units unknown) (unknown) Result panel 111 (unknown) (no date) (unknown) [facility] (no value) (units unknown) (unknown) Result panel 112 (unknown) (no date) (unknown) [facility] (no value) (units unknown) (unknown) Result panel 113 (unknown) (no date) (unknown) [facility] (no value) (units unknown) (unknown) Result panel 114 (unknown) (no date) (unknown) [facility] (no value) (units unknown) (unknown) Result panel 115 (unknown) (no date) (unknown) [facility] (no value) (units unknown) (unknown) Result panel 116 (unknown) (no date) (unknown) [facility] (no value) (units unknown) (unknown) Result panel 117 (unknown) (no date) (unknown) [facility] (no value) (units unknown) (unknown) Result panel 118 (unknown) (no date) (unknown) [facility] (no value) (units unknown) (unknown) Result panel 119 (unknown) (no date) (unknown) [facility] (no value) (units unknown) (unknown) Result panel 120 (unknown) (no date) (unknown) [facility] (no value) (units unknown) (unknown) Result panel [...] (unknown) (no date) (unknown) (unknown) : 4 Acct:[id number] (units unknown) (unknown) (unknown) (no date) (unknown) [...] (unknown) (unknown) (no date) (unknown) (unknown) [address] [address] (units unknown) (unknown) (unknown) (no date) (unknown) (unknown) [id number] (units unknown) (unknown) (unknown) (no date) (unknown) (unknown) Medical Histor y (units unknown) (unknown) (unknown) (no date) (unknown) (unknown) Medication Instructions Recorded Confirmed (units unknown) (unknown) (unknown) (no date) (unknown) (unknown) Medication Instructions Recorded (units unknown) (unknown) (unknown) (no date) (unknown) (unknown) Sarahcellkeke, Manjit shepherd MD [Primary Care Provider] (units [...] unknown) (unknown) (unknown) (no date) (unknown) (unknown) [address] [place] [address] (un its unknown) (unknown) (unknown) (no date) (unknown) (unknown) : [id number] (units unknown) (unknown) (unknown) (no date) (unknown) (unknown) Accession Numb er: [id number] (units unknown) (unknown) (unknown) (no date) (unknown) (unknown) Age/Sex: 27 / F Date of Service: (units unknown) (unknown) (unknown) (no date) (unknown) (unknown) [place] [address] (units unknown) (unknown) (unknown) (no date) (unknown) [...] (unknown) (no date) (unknown) (unknown) : 4 Acct:[id number] (units unknown) (unknown) (unknown) (no date) (unknown) [...] unknown) (unknown) (unknown) (no date) (unknown) (unknown) [facility] (uni ts unknown) (unknown) (unknown) (no date) (unknown) (unknown) Loc: ED (units unknown) (unknown) (unknown) (no date) (unknown) (unknown) Noncontrast 4. 5 mm thick angled axial sections acquired from the foramen magnum (units unknown) (unknown) (unknown) (no date) (unknown) (unknown) Ordering Jai gris: Regina Murguia D.O. (units unknown) (unknown) [...] (unknown) (no date) (unknown) (unknown) : 4 Acct:[id number] (units unknown) (unknown) (unknown) (no date) (unknown) [...] (unknown) (unknown) (no date) (unknown) (unknown) [address] [address] (units unknown) (unknown) (unknown) (no date) (unknown) (unknown) Lab Data (units unknown) (unknown) (unknown) (no date) (unknown) (unknown) [id number] (units unknown) (unknown) (unknown) (no date) (unknown) [...] mg of Versed. She was at the [facility] (units unknown) (unknown) (unknown) (no date) [...] care provider in 2-3 days or call [phone] (units unknown) (unknown) (unknown) (no date) (unknown) [...] unknown) (unknown) (unknown) (no date) (unknown) (unknown) 01: (units unknown) (unknown) (unknown) (no date) (unknown) (unknown) 02:00 10/07/22 (unit s unknown) (unknown) (unknown) (no date) (unknown) (unknown) 02:08 02:08 (units unknown) (unknown) (unknown) (no date) (unknown) (unknown) 02:09 0314/23 (unit s unknown) (unknown) (unknown) (no date) [...] (unknown) (no date) (unknown) (unknown) : 4 Acct:[id number] (units unknown) (unknown) (unknown) (no date) (unknown) [...] (unknown) (unknown) (no date) (unknown) (unknown) [address] [address] (units unknown) (unknown) (unknown) (no date) (unknown) (unknown) Lab Data (units unknown) (unknown) (unknown) (no date) (unknown) (unknown) Lab Results (units unknown) (unknown) (unknown) (no date) (unknown) (unknown) Labs: (units unknown) (unknown) (unknown) (no date) (unknown) (unknown) Lymph # (Auto) 1300 ([id number]) /uL (units unknown) (unknown) (unknown) (no date) (unknown) (unknown) Lymph % (Auto) 14.4 L (25-40) % (units unknown) (unknown) (unknown) (no date) (unknown) (unknown) [id number] (units unknown) (unknown) (unknown) (no date) (unknown) [...] unknown) (unknown) (unknown) (no date) (unknown) (unknown) [place]ette # (Auto) 400 (0-900) /uL (units unknown) (unknown) (unknown) (no date) (unknown) (unknown) [place] % (Auto) 5.0 (3-14) % (units unknown) (unknown) (unknown) (no date) (unknown) (unknown) NEUROLOGICAL: Alert oriented to person slurred speech moving all extremities (units unknown) (unknown) (unknown) (no date) (unknown) (unknown) Neut # (Auto) 7000 ([id number]) /uL (units unknown) (unknown) (unknown) (no date) [...] mg of Versed. She was at the [facility] (units unknown) (unknown) (unknown) (no date) [...] care provider in 2-3 days or call [phone] (units unknown) (unknown) (unknown) (no date) (unknown) [...] (unknown) (no date) (unknown) (unknown) : 4 Acct:[id number] (units unknown) (unknown) (unknown) (no date) (unknown) [...] (unknown) (unknown) (no date) (unknown) (unknown) [address] [address] (units unknown) (unknown) (unknown) (no date) (unknown) (unknown) Lab Data (units unknown) (unknown) (unknown) (no date) (unknown) (unknown) Lab Results (units unknown) (unknown) (unknown) (no date) (unknown) (unknown) Labs: (units unknown) (unknown) (unknown) (no date) (unknown) (unknown) Lymph # (Auto) 1300 ([id number]) /uL (units unknown) (unknown) (unknown) (no date) (unknown) (unknown) Lymph % (Auto) 14.4 L (25-40) % (units unknown) (unknown) (unknown) (no date) (unknown) (unknown) [id number] (units unknown) (unknown) (unknown) (no date) (unknown) [...] unknown) (unknown) (unknown) (no date) (unknown) (unknown) Labette # (Auto) 400 (0-900) /uL (units unknown) (unknown) (unknown) (no date) (unknown) (unknown) Labette % (Auto) 5.0 (3-14) % (units unknown) (unknown) (unknown) (no date) (unknown) (unknown) NEUROLOGICAL: Alert oriented to person slurred speech moving all extremities (units unknown) (unknown) (unknown) (no date) (unknown) (unknown) Neut # (Auto) 7000 ([id number]) /uL (units unknown) (unknown) (unknown) (no date) [...] mg of Versed. She was at the [facility] (units unknown) (unknown) (unknown) (no date) [...] alcoh ol she reports she had drinks. Sandraancee reports multiple seizures. (units unknown) (unknown) (unknown) [...] facility 2022-10-07 00:00 Smokes tobacco daily (finding) [facility] 2022-12-10 00:00 Never smoker [facility] [place] Vital Signs date measurement value units 2022-10-07 [...]
[2022-12-22 11:45] LABS: ALBUMIN/GLOBULIN RATIO 1.1 (1.0-2.2); BILIRUBIN,TOTAL 0.6 mg/dL (0.2-1.0); CALCIUM 8.9 mg/dL (8.5-10.3); CREATININE 0.7 mg/dL (0.4-1.0); POTASSIUM 4.2 mmol/L (3.5-5.0); TOTAL PROTEIN 7.5 g/dL (6.7-8.2)
[2022-12-22] MEDS ORDERED: PANTOPRAZOLE 40 MG VIAL IVP STA (13:12)
[2022-12-22] MEDS ORDERED: HYDROmorphone 1 MG/ML CARPUJECT IVP STA ×2 (13:12→16:16)
[2022-12-22] MEDS ORDERED: SODIUM CHLORIDE 0.9% 1,000 ML IV STA (13:12)
[2022-12-22] MEDS ORDERED: ONDANSETRON 4 MG/2 ML VIAL IVP STA ×2 (13:12→16:25)
[2022-12-22] MEDS ORDERED: diphenhydrAMINE INJ 50 MG/ML VIAL IVP STA (13:13)
[2022-12-22] MEDS ORDERED: methylPREDNISolone SUCCINATE 125 MG/2 ML VIAL IVP STA (13:13)
--- NOTE | 2022-12-22 13:17 | ED Physician Documentation ---
PD HPI ABD PAIN - Stated complaint Stated Complaint: ABD PX/NAUSEA/CHILLS - Chief complaint Chief Complaint: Abd Pain - History obtained from History obtained from: Patient - History of Present Illness Timing - onset: How many days ago (2) Timing - duration: Days (2) Timing - details: Gradual onset Pain level max: 10 Quality: Aching, Sharp, Pain Location: LUQ Radiation: Left flank Improved by: Other (nothing) Worsened by: Eating, Moving, Palpation Associated symptoms: Nausea, Vomiting, Diarrhea (x2), Constipation (no BM x 2 days). No: Fever, Hematemesis, Melena, Hematochezia, Dysuria, Hematuria Similar symptoms before: Diagnosis (has been diagnosed with GERD in the past, but states this feels different.) - Additional information Additional information: 27-year-old female presents to the emergency department with left upper quadrant abdominal pain, started about 2 to 3 days ago. It started after she ate "junk food" a driving theater. She had nausea and vomiting followed by diarrhea. Now has persistent pain. Has not had any bowel movement for 2 days. Has had chills but no fever. Has been taking Naprosyn without relief. No urinary symptoms. Denies any possibility of . Has not taken anything else for pain. Review of Systems Constitutional: denies: Fever, Chills Nose: denies: Rhinorrhea / runny nose, Congestion Respiratory: denies: Cough : denies: Dysuria, Frequency, Hesitancy, Now EGA Skin: denies: Rash Musculoskeletal: denies: Neck pain, Back pain Neurologic: denies: Headache PD PAST MEDICAL HISTORY - Past Medical History Neuro: Seizure disorder Endocrine/Autoimmune: Type 2 diabetes NATUROPATHIC DOCTOR: Ovarian cysts : Kidney stones, Other Psych: Depression, Anxiety - Past Surgical History Past Surgical History: Yes /NATUROPATHIC DOCTOR: Other - Present Medications Home Medications: Ambulatory Orders Medication Instructions Recorded Confirmed Sertraline HCl 200 mg PO DAILY 01/31/22 01/31/22 traZODone [Desyrel] 25 mg PO HS PRN 01/31/22 01/31/22 Cyclobenzaprine [Flexeril] 10 mg PO TID PRN #12 tablet 03/11/22 Ibuprofen [Motrin] 600 mg PO Q6H PRN #30 tab 03/11/22 Lidocaine Patch 5% [Lidoderm Patch] 1 patch TOP DAILY PRN #10 patch 03/11/22 EPINEPHrine [Epinephrine] 0.3 mg IJ ONCE PRN #2 each 05/21/22 Cetirizine [ZyrTEC] 10 mg PO BID #20 tablet 05/23/22 LORazepam [Ativan] 1 mg PO BID PRN #12 tablet 05/23/22 dexAMETHasone [Decadron] 4 mg PO DAILY #5 tablet 05/23/22 oxyCODONE [Roxicodone] 5 mg PO BID PRN #10 tablet 06/05/22 HYDROcod/ACETAM 5/325 [[place] 5/325] 1 - 2 tab PO Q6H PRN #15 tablet 07/28/22 EPINEPHrine [Epinephrine] 0.3 mg IJ ONCE PRN #1 each 12/10/22 Famotidine [Pepcid] 20 mg PO BID #60 tablet 12/22/22 Ondansetron Odt [Zofran] 4 mg TL Q6H PRN #10 tablet 12/22/22 oxyCODONE [Roxicodone] 5 - 10 mg PO Q6H PRN #14 tablet 12/22/22 MDD 6 - Allergies Allergies/Adverse Reactions: Allergies Allergy/AdvReac Type Severity Reaction Status Date / Time ciprofloxacin [From Cipro] Allergy Rash Verified 12/22/22 11:03 duloxetine [From Cymbalta] Allergy Unknown Verified 12/22/22 11:03 Iodinated Contrast Media Allergy Respiratory Verified 12/22/22 11:03 Penicillins Allergy Anaphylaxis Verified 12/22/22 11:03 - Social History Does the pt smoke?: Yes Smoking Status: Current every day smoker Does the pt drink ETOH?: Yes Does the pt have substance abuse?: No - Immunizations Immunizations are current?: Yes - POLST Patient has POLST: No PD ED PE NORMAL - Vitals Vital signs reviewed: Yes - General General: Alert and oriented X 3, No acute distress - HEENT HEENT: PERRL, Moist mucous membranes - Neck Neck: Supple, no meningeal sign - Cardiac Cardiac: RRR, Strong equal pulses - Respiratory Respiratory: No respiratory distress, Clear bilaterally - Abdomen Abdomen: Soft, Non tender, Non distended - Derm Derm: Warm and dry - Extremities Extremities: No edema, No calf tenderness / cord - Neuro Neuro: Alert and oriented X 3 - Psych Psych: Normal mood, Normal affect Results - Vitals Vitals: Vital Signs - 24 hr 12/22/22 12/22/22 11:03 15:17 Temperature 36.8 C Heart Rate 95 94 Respiratory 20 16 Rate Blood Pressure 131/87 H 127/69 O2 Saturation 100 100 Oxygen O2 Source Room air - Labs Labs: Laboratory Tests 12/22/22 12/22/22 12/22/22 11:17 11:18 11:18 WBC 8.8 RBC 4.44 Hgb 13.5 Hct 39.9 MCV 89.9 MCH 30.4 MCHC 33.8 RDW 13.1 Plt Count 397 MPV 9.2 Neut # (Auto) 5.9 Lymph # (Auto) 1.9 Kane # (Auto) 0.6 Eos # (Auto) 0.3 Baso # (Auto) 0.1 Absolute Nucleated RBC 0.00 Nucleated RBC % 0.0 Sodium 139 Potassium 4.2 Chloride 107 Carbon Dioxide 28 Anion Gap 4.0 L BUN 7 Creatinine 0.7 Estimated GFR (MDRD) 99 Glucose 105 H Calcium 8.9 Total Bilirubin 0.6 AST 16 ALT 17 Alkaline Phosphatase 56 Total Protein 7.5 Albumin 4.0 Globulin 3.5 Albumin/Globulin Ratio 1.1 Lipase 33 Urine Color YELLOW Urine Clarity CLEAR Urine pH 6.5 Ur Specific Beeler <=1.005 Urine Protein NEGATIVE Urine Glucose (UA) NEGATIVE Urine Ketones NEGATIVE Urine Occult Blood NEGATIVE Urine Nitrite NEGATIVE Urine Bilirubin NEGATIVE Urine Urobilinogen 0.2 (NORMAL) Ur Leukocyte Esterase NEGATIVE Ur Microscopic Review NOT INDICATED Urine Culture Comments NOT INDICATED Urine HCG, Qual NEGATIVE - Rads (name of study) CT abd.pelvis Relevant Findings:: Final report received, See rad report PD Medical Decision Making - ED course Complexity details: reviewed results, re-evaluated patient, considered differential, d/w patient ED course: 27-year-old female with epigastric/left upper quadrant abdominal pain. No significant findings on CT scan. CBC, chemistry and urinalysis do not show any significant abnormalities. Lipase is normal. Pain well controlled after IV Dilaudid. Possible gastritis versus GERD. We will add an H2 verena to her current PPI. We will also prescribe pain medication for home. Recommend bland diet. Recommend she follow-up closely with her doctor for further care. No peritoneal signs. Patient counseled regarding signs and symptoms for which I believe and urgent re-evaluation would be necessary. Patient with good understanding of and agreement to plan and is comfortable going home at this time This document was made in part using voice recognition software. While efforts are made to proofread this document, sound alike and grammatical errors may occur. Departure - Departure Disposition: 01 Home, Self Care Clinical Impression: Abdominal pain Qualifiers: Abdominal location: epigastric Qualified Code(s): R10.13 - Epigastric pain Condition: Good Instructions: ED Abdominal Pain Female Non-Specific Abdominal Pain, ED PUD Vs Gastritis Follow-Up: JASKARAN QUINTERO MD [Primary Care Provider] - Within 1 week Prescriptions: Famotidine [Pepcid] 20 mg PO BID #60 tablet oxyCODONE [Roxicodone] 5 - 10 mg PO Q6H PRN #14 tablet MDD 6 PRN Reason: pain Ondansetron Odt [Zofran] 4 mg TL Q6H PRN #10 tablet PRN Reason: Nausea / Vomiting Comments: Please follow-up with your doctor for further care. Please return if you worsen. Your laboratory testing and CT scan did not show any acute abnormalities today. This could be related to a flare of your gastritis. We will add Pepcid and pain medication for home. Your prescriptions were sent to [facility] in [place]. I am prescribing a short course of narcotic pain medication for you. These are potentially dangerous and addictive medications that should be used carefully. These medications may constipate you. Take an tkgn-[id number] stool softener (docusate) twice daily with plenty of water while taking these medications. If you go 24 hours without a bowel movement, take lixy-vab-pdehfed miralax, per package instructions. Do not drink or drive while taking these medications. If you received narcotic or sedating medications while in the emergency department, do not drive for 24 hours. Store this medication in a safe, secure place and out of reach of children. It is a violation of federal law to give or sell this medication to another person or to use in a manner other than prescribed. The ED will not refill narcotic prescriptions, including prescriptions lost or stolen. To dispose of unwanted medications: 1. [facility] at [address] in [place] has a medication drop box. They accept prescription medications (in pill form) Thursday through Thursday 9:00 a.m. to 5:00 p.m. 2. [facility] accepts prescription medications (in pill form only) for disposal year round. Call for more information. 3. Contact the [facility] for the next [facility] sponsored prescription drug collection event. , [phone], or [phone]; Discharge Date/Time: 12/22/22 16:40
[2022-12-22] MEDS ORDERED: iohexoL-300 100 ML VIAL ONE (13:31)
[2022-12-22 15:21] VITALS: BP 127/69
--- NOTE | 2022-12-22 15:50 | CT Report ---
PROCEDURE: ABDOMEN/PELVIS W INDICATIONS: LUQ abd pain CONTRAST: 100ml Omnipaque 300 TECHNIQUE: After the administration of intravenous contrast, 5 mm thick sections acquired from the diaphragms to the symphysis. 5 mm thick coronal and sagittal reformats were acquired. For radiation dose reducti on, the following was used: automated exposure control, adjustment of mA and/or kV according to benedicto ent size. COMPARISON: 06/05/2022 and 06/12/2022 FINDINGS: Image quality: Excellent. Lung bases and heart: Unremarkable. Liver: No solid mass. Gallbladder and biliary tree: The decompressed gallbladder. Nondilated biliary tree. Spleen: No splenomegaly. Pancreas: No pancreatic ductal dilation. Adrenals: No adrenal nodule. Kidneys and ureters: No hydronephrosis. No renal cystic lesion which requires follow up. No solid mas s. Bowel and peritoneum: No bowel distension. No pathologic free fluid. Appendix not confidently seen. N o secondary signs of acute right lower quadrant inflammation. Lymph nodes: No central or retroperitoneal adenopathy. Vessels: No infrarenal aortic aneurysm. PELVIS Reproductive organs: Anteverted uterus. No suspicious adnexal masses. Bladder: Normal. No stones. Pelvic lymph nodes: No pelvic adenopathy by size criteria. Bones: No aggressive osseous abnormality. Other: No significant ventral or inguinal hernia. IMPRESSION: 1. No acute abnormalities. Reviewed by: Janice Harkins MD on 12/22/2022 2:49 PM [facility] Approved by: Janice Harkins MD on 12/22/2022 2:49 PM [facility] Station ID: [id number]
[2022-12-22] MEDS ORDERED: iohexoL-300 100 ML VIAL IVP ONE (15:58)
== END 2022-12-22 16:40 | disposition home or self-care (01) ==
LOC: ED 10:43
DX: R10.13 Epigastric pain (principal); E11.9 Type 2 diabetes mellitus without complications
CPT/HCPCS: 36415; 74177; 80053; 81003; 81025; 83690; 85025; 96374; 96375; 96376; 99284; 99285; J1170; J1200; Q0162; Q9967; 81001; 87086